=== PATIENT | female | born 1945 | race Caucasian/White ===

== ENCOUNTER 2016-06-04 17:28 | Emergency (ER) | payer MEDICARE, MEDICAID ==
[~2016-06-04] VITALS: Ht 157.5 cm; Wt 63.0 kg
[~2016-06-04 17:28] MED LIST: ALBU8.5H7 IH; AMLO5TAB2 PO; ARFO15VI IH; BECL8.7A6 IH; BUDE0.5A IH; CARB1TAB43 PO; CILO50TA9 PO; COLE625T12 PO; DULO60CA7 PO; FINA1TAB10 PO; FLUT1AER IH; FLUT250D IH; GABA300C PO; HYDR-2370 PO; INSU100I18 SQ; INSU100V13 SQ; IPRA3AMP IH; LORA1TAB PO; METF10002 PO; METO100T2 PO; MULT1TAB52 PO; PIOG30TA27 PO; PRAV40TA2 PO; PROM25TA10 PO; RAMI2.5C28 PO; SITA100T PO; SULF1TAB24 PO; TEMA30CA PO
[2016-06-04] MEDS ORDERED: DUONEB 0.5 MG-3 MG/3 ML SOLN IH STA (18:06)
[2016-06-04] MEDS ORDERED: SOLU-MEDROL IM STA (18:06)
--- NOTE | 2016-06-04 18:06 | ER.PDOC ---
General Chief Complaint: Dyspnea/Respdistress Stated Complaint: DIFF BREATHING Time seen by MD: 18:05 Source: patient History of Present Illness Initial Comments SOB and cough with yellowish phlegm for 3 days . Has h/o Asthma and COPD Severity: moderate Allergies: Coded Allergies: butorphanol (Verified Allergy, Severe, 08/30/15) morphine (Verified Allergy, Severe, 08/30/15) pentazocine (Verified Allergy, Severe, 08/30/15) codeine (Unverified Adverse Reaction, Intermediate, GI UPSET, 08/30/15) Home Meds Reported Medications Cilostazol (Pletal)50 Mg Bichjg07 Mg PO BID 12/02/14 Multivitamin (Multivitamins)1 Each Tablet1 Tab PO DAILY #90 TAB Ref 3 10/19/14 Ipratropium/Albuterol Sulfate (Iprat-Albut 0.5-3(2.5) Mg/3 Ml)3 Ml Ampul.neb3 Ml IH 10/19/14 Fluticasone/Vilanterol (Breo Ellipta 100-25 Mcg INH)1 Each Aer.pow.ba1 Each IH PRN SHORTNESS OF BREATH 10/19/14 Metformin Hcl 1,000 Mg Tablet1 Tab PO DAILY #60 TAB Ref 5 10/19/14 Arformoterol Tartrate (Brovana)15 Mcg/2 Ml Vial.neb15 Mcg IH 10/19/14 Finasteride 1 Mg Tablet1 Mg PO TID 10/19/14 Gabapentin (Neurontin)300 Mg Capsule1 Cap PO HS #90 CAP Ref 3 05/06/14 Insulin Detemir (Levemir)100 Unit/1 Ml Vial33.3 Unit SQ BID 05/04/14 Pioglitazone Hcl (Actos)30 Mg Mqxfbh37 Mg PO DAILY 05/04/14 Pravastatin Sodium 40 Mg Dsazmy07 Mg PO HS 05/04/14 Amlodipine Besylate 5 Mg Tablet5 Mg PO DAILY 05/04/14 Metoprolol Tartrate (Lopresser 100MG)100 Mg Wfinzu722 Mg PO DAILY HYPERTENSION # 60 TAB 05/04/14 Duloxetine Hcl (Cymbalta)60 Mg Capsule.dr60 Mg PO DAILY 05/04/14 Insulin Aspart (Novolog)100 Unit/1 Ml Insuln.pen15 Unit SQ TID 05/04/14 Ramipril 2.5MG (Altace 2.5MG)2.5 Mg Capsule2.5 Mg PO DAILY 05/04/14 Carbidopa/Levodopa (Carbidopa-Levo Er 25-100 Tab)1 Each Tablet.er1 Each PO QID 05/04/14 Colesevelam Hcl (Welchol)625 Mg Tablet3 Tab PO BID 05/04/14 Lorazepam 1 Mg Tablet1 Mg PO BID 05/04/14 Budesonide 0.5 Mg/2 Ml Ampul.neb0.5 Mg IH BID 05/04/14 Past Medical History Medical History: COPD, diabetes, hypertension Surgical History: appendectomy, hysterectomy, tonsillectomy LMP (females 10-50): hysterectomy Social History Smoking: less than 1 pack/day Alcohol Use: occasionally Drug Use: none Review of Systems Constitutional: see HPI EENTM: no symptoms reported Respiratory: see HPI Cardiovascular: no symptoms reported Gastrointestinal: no symptoms reported Genitourinary: no symptoms reported Musculoskeletal: no symptoms reported Skin: no symptoms reported Psychiatric/Neurological: no symptoms reported Endocrine: no symptoms reported Hematologic/Lymphatic: no symptoms reported Physical Exam General Appearance: Moderate Distress HEENT: PERRL/EOMI Neck: Non-Tender Respiratory: accessory muscle use, wheezing Cardiovascular: Normal Peripheral Pulses Extremities: Normal Range of Motion Neurologic/Psychiatric: No Motor/Sensory Deficits Skin: Normal Color Results/Orders Results/Orders Administered Medications Medications (Trade) Dose Ordered Sig/Romulo Route PRN Reason Start Time Stop Time Status Last Admin Dose Admin Albuterol/ Ipratropium (Duoneb 0.5 Mg-3 Mg/3 ml Soln) 3 ml STAT STAT IH 06/04/16 18:06 06/04/16 18:08 DC 06/04/16 18:29 Methylprednisolone Sodium Succinate (Solu-Medrol) 125 mg STAT STAT IM 06/04/16 18:06 06/04/16 18:08 DC 06/04/16 18:18 Departure Time of Disposition: 19:03 Disposition: 01 HOME, SELF-CARE Impression: Primary Impression: Chronic obstructive pulmonary disease Condition: Stable Referrals: ADONIS YIN HORTICULTURAL AGENT (PCP) PRIMARY CARE PROVIDER GABRIEL SEE MD Jun 04, 2016 18:06
[2016-06-04] MEDS ORDERED: SOLU-MEDROL ONE (18:16)
[2016-06-04] MEDS ORDERED: DUONEB 0.5 MG-3 MG/3 ML SOLN IH ONE (18:17)
--- NOTE | 2016-06-04 18:27 | DIREP ---
PROCEDURE:CHEST 1 VIEW COMPARISON:[facility], CR, XRAY CHEST 2 VWS, 07/13/2015, 01:32 PM. INDICATIONS:CODP / PNA FINDINGS: LUNGS/PLEURA:There is pulmonary hyperinflation consistent with underlying COPD. No focal consolidation. No effusions. VASCULATURE:Normal. Unremarkable pulmonary vasculature. CARDIAC:Normal. No cardiac silhouette abnormality or cardiomegaly. MEDIASTINUM:Atherosclerotic aorta with no visible aneurysm. BONES:Moderate degenerative disc disease and spondylosis without visible acute abnormalities. OTHER:Negative. CONCLUSION:No acute cardiopulmonary disease. No change. Dictated by: Jorge Mac M.D. on 06/04/2016 at 06:26 PM
[2016-06-04] MEDS ORDERED: LEVAQUIN ONE (19:06)
[2016-06-04] MEDS ORDERED: LEVAQUIN PO STA (19:06)
[2016-06-04 19:22] VITALS: BP 147/81
[2017-01-22] MEDS ORDERED: LORA1TAB PO (19:15)
[2017-01-22] MEDS ORDERED: CHOL500016 PO (19:15)
[2017-01-22] MEDS ORDERED: OFLO5DRO7 OT (19:15)
[2017-01-22] MEDS ORDERED: ACET500T73 PO (19:15)
[2017-01-22] MEDS ORDERED: B CO PO (19:15)
[2017-01-22] MEDS ORDERED: ZOLP10TA5 PO (19:15)
[2017-01-22] MEDS ORDERED: ISOS30TA4 PO (19:15)
[2017-01-22] MEDS ORDERED: TRAM50TA PO (19:15)
[2017-02-20] MEDS ORDERED: INSU100V13 SQ (00:15)
[2017-02-23] MEDS ORDERED: VARE1TAB20 PO (10:37)
[2017-02-23] MEDS ORDERED: TICA90TA PO (10:37)
[2017-03-15] MEDS ORDERED: CLOP75TA52 PO (15:05)
== END 2016-06-04 19:17 | disposition home or self-care (01) ==
LOC: ER 17:28
DX: J44.9 Chronic obstructive pulmonary disease, unspecified (principal); E11.9 Type 2 diabetes mellitus without complications; I10 Essential (primary) hypertension; F17.200 Nicotine dependence, unspecified, uncomplicated; Z79.4 Long term (current) use of insulin; Z79.899 Other long term (current) drug therapy; Z88.5 Allergy status to narcotic agent; Z88.8 Allergy status to other drugs, medicaments and biological substances
CPT/HCPCS: 71010; 94640; 96372; 99283; J1956; J2930; J7620; 71045

== ENCOUNTER 2017-04-13 13:54 | Inpatient (IN) | payer MEDICARE, MEDICAID ==
[~2017-04-13] VITALS: Ht 154.9 cm; Wt 76.2 kg
[~2017-04-13 13:54] MED LIST changes: +ACET500T73 PO; +B CO PO; +CHOL500016 PO; +CLOP75TA52 PO; +ISOS30TA4 PO; +OFLO5DRO7 OT; +TICA90TA PO; +TRAM50TA PO; +VARE1TAB20 PO; +ZOLP10TA5 PO
[2017-04-13] MEDS ORDERED: TORADOL IM STA (14:18)
--- NOTE | 2017-04-13 14:24 | ER.PDOC ---
General Chief Complaint: Neck/Upper back Pain Stated Complaint: LOW PRESSURE TRAVEL OUT OF US: No Time seen by MD: 14:20 Source: patient Exam Limitations: no limitations History of Present Illness Initial Comments Lightheaded and low blood pressure at home. Had EGD for blood in stool on which showed gastritis and polyp. She continues to have blood in stool. Currently takes Aspirin and Plavix. Severity: moderate Associated Symptoms: cough Allergies: Coded Allergies: butorphanol (Verified Allergy, Severe, 01/22/17) pentazocine (Verified Allergy, Severe, 01/22/17) codeine (Verified Adverse Reaction, Intermediate, GI UPSET, 03/15/17) Home Meds Active Scripts Varenicline Tartrate (CHANTIX) 1 Each Tab.ds.pk, 1 EACH PO BID for 30 Days, 0 Refills DIRECTED IN [employer]IENCE PACK. Prov:MARIAM CUNNINGHAM APRN, NP 02/23/17 Ticagrelor (BRILINTA) 90 Mg Tablet, 90 MG PO BID for PCI, #180 TABLET 4 Refills Prov:MARIAM CUNNINGHAM APRN, NP 02/23/17 Reported Medications Clopidogrel Bisulfate (PLAVIX) 75 Mg Tablet, 75 MG PO DAILY, TABLET 03/15/17 Insulin Detemir (LEVEMIR) 100 Unit/1 Ml Vial, 60 UNIT SQ HS, VIAL 02/20/17 Tramadol Hcl (TRAMADOL HCL) 50 Mg Tablet, 50 MG PO BID, TABLET 01/22/17 Lorazepam (LORAZEPAM) 1 Mg Tablet, 1 MG PO TID, TABLET 01/22/17 Isosorbide Mononitrate (ISOSORBIDE MONONITRATE ER) 30 Mg Tab.er.24h, 30 MG PO DAILY 01/22/17 Acetaminophen (ACETAMINOPHEN) 500 Mg Tablet, 500 MG PO HS, TABLET 01/22/17 Cholecalciferol (Vitamin D3) (VITAMIN D3) 5,000 Unit Tablet, 1 UNIT PO DAILY, TABLET 01/22/17 B Complex with Vitamin C (B-Complex with C) 1 Each Tablet, 1 EACH PO DAILY, TABLET 01/22/17 Zolpidem Tartrate (ZOLPIDEM TARTRATE) 10 Mg Tablet, 10 MG PO HS, TABLET 01/22/17 Ipratropium/Albuterol Sulfate (IPRAT-ALBUT 0.5-3(2.5) MG/3 ML) 3 Ml Ampul.neb, 3 ML IH 10/19/14 Fluticasone/Vilanterol (Breo Ellipta 100-25 Mcg INH) 1 Each Aer.pow.ba, 1 EACH IH Y for SHORTNESS OF BREATH 10/19/14 Arformoterol Tartrate (BROVANA) 15 Mcg/2 Ml Vial.neb, 15 MCG IH 10/19/14 Gabapentin (NEURONTIN) 300 Mg Capsule, 400 MG PO QID, #90 CAP 3 Refills 05/06/14 Insulin Detemir (LEVEMIR) 100 Unit/1 Ml Vial, 33.3 UNIT SQ BID, VIAL 05/04/14 Pravastatin Sodium (PRAVASTATIN SODIUM) 40 Mg Tablet, 40 MG PO HS, TABLET 05/04/14 Metoprolol Tartrate (LOPRESSER 100MG) 100 Mg Tablet, 100 MG PO DAILY for HYPERTENSION, #60 TAB 05/04/14 Duloxetine Hcl (CYMBALTA) 60 Mg Capsule.dr, 60 MG PO DAILY 05/04/14 Insulin Aspart (NOVOLOG) 100 Unit/1 Ml Insuln.pen, 15 UNIT SQ TID 05/04/14 Ramipril 2.5MG (ALTACE 2.5MG) 2.5 Mg Capsule, 2.5 MG PO DAILY, CAPSULE 05/04/14 Carbidopa/Levodopa (CARBIDOPA-LEVO ER 25-100 TAB) 1 Each Tablet.er, 1 EACH PO QID 05/04/14 Lorazepam (LORAZEPAM) 1 Mg Tablet, 1 MG PO BID, TABLET 05/04/14 Budesonide (BUDESONIDE) 0.5 Mg/2 Ml Ampul.neb, 0.5 MG IH BID 05/04/14 Past Medical History Medical History: diabetes, hypertension Surgical History: appendectomy, hysterectomy, knee, tonsillectomy, other Social History Smoking: less than 1 pack/day Alcohol Use: none Drug Use: none Review of Systems Constitutional: no symptoms reported Respiratory: see HPI Cardiovascular: no symptoms reported Gastrointestinal: no symptoms reported Genitourinary: no symptoms reported All Other Systems: Reviewed and Negative Physical Exam General Appearance: No Apparent Distress, WD/WN, Other (palor) Neck: Full Range of Motion, Supple, Tender Midline Respiratory: chest non-tender, lungs clear, normal breath sounds, no respiratory distress CVS: reg rate & rhythm, no murmur, no gallop, pulses nml, nml capillary refill Gastrointestinal: Normal Bowel Sounds, No Organomegaly, No Pulsatile Mass, Non Tender Back: Normal Inspection Extremities: Normal Range of Motion Neurologic/Psychiatric: pocket operator II-XII NML as Tested Results/Orders Results/Orders Laboratory Tests Test 04/13/17 14:30 White Blood Count 7.3 10^3/uL (4.5-11.0) Red Blood Count 2.99 10^6/uL (4.00-5.20) Hemoglobin 8.8 g/dL (12.0-15.0) Hematocrit 27.2 % (36.0-46.0) Mean Corpuscular Volume 91.0 fL (78-100) Mean Corpuscular Hemoglobin 29.4 pg (26-34) Mean Corpuscular Hemoglobin Concent 32.4 g/dL (33-37) Red Cell Distribution Width 12.8 % (11.5-14.5) Platelet Count 181 10^3/uL (150-400) Mean Platelet Volume 10.5 fL (7.8-11.0) Neutrophils (%) (Auto) 48.7 % (41.0-85.0) Lymphocytes (%) (Auto) 37.3 % (24.0-44.0) Monocytes (%) (Auto) 11.9 % (5.0-12.0) Neutrophils # (Auto) 3.6 10^3/uL (1.8-7.7) Lymphocytes # (Auto) 2.7 10^3/uL (1.0-4.8) Monocytes # (Auto) 0.9 10^3/uL (0.3-0.8) Absolute Immature Granulocyte (auto 0.01 10^3 u/L (0-2) Eosinophils % 1.6 % (0.0-5.0) Basophils % 0.4 % (0.0-0.2) Basophils # 0.0 10^3/uL (0.0-0.1) Eosinophil Count 0.1 10^3/uL (0.0-0.2) Prothrombin Time 10.7 SEC (9.8-11.9) Prothrombin Time INR (Non-Therap) 1.0 Sodium Level 133 mmol/L (132-145) Potassium Level 4.6 mmol/L (3.6-5.2) Chloride Level 98.0 mmol/L (96-109) Carbon Dioxide Level 26.8 mmol/L (20.0-32) Anion Gap 12.8 Blood Urea Nitrogen 19 mg/dL (7-18) Creatinine 1.13 mg/dL (0.59-1.40) Estimated GFR () 57.1 (>/=60) BUN/Creatinine Ratio 16.0 Glucose Level 293 mg/dL (70-110) Calcium Level 8.6 mg/dL (8.4-10.5) Total Bilirubin 0.3 mg/dL (0.2-1.0) Aspartate Amino Transf (AST/SGOT) 27 U/L (0-35) Alanine Aminotransferase (ALT/SGPT) 30 U/L (12-78) Alkaline Phosphatase 83 U/L (50-136) Total Creatine Kinase 50 U/L (26-192) Creatine Kinase MB < 0.5 ng/mL (0.5-3.6) Troponin I < 0.02 ng/mL (0.00-0.05) Total Protein 6.4 g/dL (6.4-8.2) Albumin 3.0 g/dL (3.4-5.0) Globulin 3.4 Percent Immature Gran (Cell Imm) 0.10 % (0.00-0.50) Administered Medications Medications (Trade) Dose Ordered Sig/Romulo Route PRN Reason Start Time Stop Time Status Last Admin Dose Admin Ketorolac Tromethamine (Toradol) 30 mg STAT STAT IM 04/13/17 14:18 04/13/17 14:20 DC 04/13/17 15:14 Departure Time of Disposition: 18:07 Disposition: 09 ADMITTED INPATIENT Impression: Primary Impression: GI bleed Qualified Codes: K92.2 - Gastrointestinal hemorrhage, unspecified Additional Impression: Anemia Qualified Codes: D64.9 - Anemia, unspecified Condition: Stable Referrals: JAVIER GRIFFITH MD (PCP) PRIMARY CARE PROVIDER Comments Admitted to Dr. Teodoro BURTON,GAYE Vides MD Apr 13, 2017 14:24
--- NOTE | 2017-04-13 14:27 | PCM.EKG ---
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
[2017-04-13 14:36] LABS: BASOPHIL % 0.4 % (0.0-0.2); EOSINOPHIL # 0.1 10^3/uL (0.0-0.2); EOSINOPHIL % 1.6 % (0.0-5.0); HEMOGLOBIN 8.8 g/dL (12.0-15.0); LYMPHOCYTES # 2.7 10^3/uL (1.0-4.8); LYMPHOCYTES % 37.3 % (24.0-44.0); MEAN CELL HGB 29.4 pg (26-34); MEAN CELL HGB CONCENTRATION 32.4 g/dL (33-37); MEAN PLATELET VOLUME 10.5 fL (7.8-11.0); MONOCYTES # 0.9 10^3/uL (0.3-0.8); MONOCYTES % 11.9 % (5.0-12.0); NEUTROPHIL # 3.6 10^3/uL (1.8-7.7); NEUTROPHILS % 48.7 % (41.0-85.0); RED CELL DISTRIBUTION WIDTH 12.8 % (11.5-14.5); WHITE BLOOD CELL 7.3 10^3/uL (4.5-11.0)
[2017-04-13] MEDS ORDERED: TORADOL ONE (14:44)
--- NOTE | 2017-04-13 14:59 | DIREP ---
PROCEDURE:CT HEAD OR BRAIN W/O CONTRAST COMPARISON:[facility], CT, CT HEAD BRAIN W/O CONTRAST, 12/09/2014, 04:08 PM. INDICATIONS:Syncope TECHNIQUE:CT images were created without intravenous contrast. FINDINGS: VENTRICLES:There is generalized prominence of the ventricles, sulci, and cisterns. CEREBRUM:There is ill-defined low density in the white matter of both cerebral hemispheres. There is no CT evidence of mass, hemorrhage, or acute infarct. CEREBELLUM:Negative. BRAINSTEM:Negative. BASAL CISTERNS:Negative. SKULL:Negative. SINUSES:Negative. OTHER:None. CONCLUSION: 1. Generalized atrophy. 2. Chronic white matter ischemic change. 3. There is no CT evidence of intracranial mass, hemorrhage, or acute infarct. 4. There is no significant change as compared with the previous examination. Dictated by: Merritt Hernandez M.D. on 04/13/2017 at 02:57 PM
[2017-04-13 15:04] LABS: ALANINE AMINOTRANSFERASE 30 U/L (12-78); ALKALINE PHOSPHATASE 83 U/L (50-136); ASPARTATE AMINO TRANSFERASE 27 U/L (0-35); CALCIUM 8.6 mg/dL (8.4-10.5); CARBON DIOXIDE 26.8 mmol/L (20.0-32); GLUCOSE 293 mg/dL (70-110)
--- NOTE | 2017-04-13 15:06 | DIREP ---
PROCEDURE: CT SPINE CERVICAL W/0 COMPARISON:None. INDICATIONS:pain FINDINGS: CRANIOCERVICAL AREA: There are degenerative changes at the C1-C2 interface. VERTEBRAE: There is no fracture or compression deformity. Degenerative changes. Anterior marginal osteophytes. DISK SPACES: There are varying degrees of disk space narrowing. PARASPINAL TISSUES: No obvious soft tissue swelling or mass. SPONDYLOLISTHESIS: None. OTHER: There is facet arthropathy. Carotid bulb and bifurcation atherosclerosis, right slightly worse than left. CONCLUSION: 1. Loss of cervical lordosis. Can be caused by injury and/or trauma, stress and strain to the neck. 2. There is no visible fracture. 3. There is no subluxation. 4. Mild diskovertebral degenerative changes with facet arthropathy. 5. Carotid bulb and bifurcation atherosclerosis, right slightly worse than left. Dictated by: Merritt Hernandez M.D. On 04/13/2017 at 02:58 PM
--- NOTE | 2017-04-13 15:47 | NUR ---
Courtney West Mba has tried 2 attempts with message with Dr. Valdez with no answer.
--- NOTE | 2017-04-13 15:50 | NUR ---
Courtney West Mba left message with Dr. Valdez
--- NOTE | 2017-04-13 16:07 | NUR ---
VAMSI CORRIGAN MBA ON PHONE WITH DR AGUSTIN AT THIS TIME REGARDING PT.
--- NOTE | 2017-04-13 16:10 | NUR ---
DR ELMER VALLEA ON PHONE WITH DR PAYNE AT THIS TIME REGARDING PT.
[2017-04-13] MEDS ORDERED: ZOFRAN IV PRN (17:30)
[2017-04-13] MEDS ORDERED: GLUCAGEN IV PRN (17:30)
[2017-04-13] MEDS ORDERED: DUONEB 0.5 MG-3 MG/3 ML SOLN IH PRN (18:00)
[2017-04-13] MEDS ORDERED: PROTONIX IV IV STA (18:09)
--- NOTE | 2017-04-13 18:09 | PRM.ACF1 ---
Date and Time Date and Time Time: 18:09 Admission Criteria Forms GASTROINTESTINAL BLEEDING, HEMATEMESIS OR MELENA (Place "X" for any and all applicable criteria): Admission to inpatient status is indicated for evidence of significant gastrointestinal bleeding, including ANY ONE of the following(1)(2)(3)(4)(5) : []I. Hematemesis in younger than 1 year A [x]II. Active upper or lower gastrointestinal bleeding []III. Coagulopathy []IV. Suspected variceal cause of bl. as indicated by ANY ONE of the following(5) : []a) Ascites []b) Comorbid disorder indicating risk for portal v. thrombosis eg, abdominal surgery , sepsis, shock, exchange. transfusion,umbilical vein catheterization []c) History of liver dis. []d) Physical findings of portal HTN eg,caput medusa []e) Jaundice or scleral icterus []f) Hepatomegaly or splenomegaly []V. Inpatient admission required rather than observation care (Also use GI Bleeding, Hematemesis or Melena: Observation Care guideline as appropriate) because of ANY ONE of the following: []a) Significant finding or clinical condition judged too severe (eg, treatment intensity or expected duration requires inpatient admission) or too persistent (eg, insufficient improvement or worsening despite initial intervention or treatment for up to 24 hours) to be within the scope of observation care, including ANY ONE of the following: []i. Hemodynamic instability that is severe or persistent []ii. Anemia requiring inpatient admission. []1. Presence of sig. clinical finding indicated by ANY ONE of the following: []A. Tachycardia for age []B. Cognitive impairment []C. Other findings suggesting inadequate perfusion []D. Orthostatic vital sign changes []E. Heart failure []F. Exertional dyspnea []G. Chest pain []2. Initial (eg,emergency department., observation care) treatment with transfusion or volume replace. is judged inappropriate (due to severity of the finding) or has been ineffective []iii. Other sig.finding or clinical condition judged not to be within the scope of observation care []iv. Severe pain requiring acute inpatient management. []v. High-risk low platelet count []b) Treatment or monitoring requiring inpatient admission (eg, due to intensity or expected duration) as indicated by need for ANY ONE of the following(6)(7) : []i. Continued inpatient IV hydration due to failure of rehydration treatment(eg, for > 24 hrs) and expected improve. with further inpatient evaluation and treatment []ii. Continuous IV infusion of:anticoagulation, platelet inhibitors, vasoactive, or antiarrhythmic medications []iii. Parenteral nutrition regimen that must be implemented on inpatient basis []iv. Other treatment or monitoring requiring inpatient admission []v. Immediate inpatient surgery Extended stay beyond goal length of stay may be needed for(1)(4)(14) : []a) Continued significant ongoing blood loss []b) Coagulation abnormalities(17) []c) Associated anemia requiring transfusion []d) Surg. intervention(12) []e) Variceal bleeding.(7) The original frooly content created by [employer] has been revised. The portions of the content which have been revised are identified through the use of italic text, and [employer] has neither reviewed nor approved the modified material. All other unmodified content is copyright [email or web address]. Please see references footnote in the original [email or web address] edition 2015 . GAYE BURTON MD Apr 13, 2017 18:09
--- NOTE | 2017-04-13 18:17 | NUR ---
CAROLINE SHEN RN STATES TO WAIT UNTIL SHIFT CHANGE BEFORE BRINGING PT UP.
[2017-04-13] MEDS ORDERED: PROTONIX IV IV ONE (18:19)
[2017-04-13] MEDS: DILAUDID IV PRN (19:28)
[2017-04-13] MEDS: PULMICORT IH SCH (20:00)
[2017-04-13 20:27] LABS: HEMOGLOBIN 9.4 g/dL (12.0-15.0)
[2017-04-13 20:29] VITALS: BP 161/88
[2017-04-13] MEDS ORDERED: NEURONTIN ONE (20:35)
[2017-04-13] MEDS ORDERED: SINEMET 25/100 ONE (20:35)
[2017-04-13] MEDS ORDERED: PEPCID ONE (20:35)
[2017-04-13 20:40] VITALS: BP 161/88
[2017-04-13] MEDS: LEVEMIR SQ SCH (20:40)
[2017-04-13] MEDS: ATIVAN PO SCH (20:40)
[2017-04-13] MEDS: SINEMET PO SCH (20:40)
[2017-04-13] MEDS: PEPCID IV SCH (20:41)
[2017-04-13] MEDS: TYLENOL PO SCH (20:41)
[2017-04-13] MEDS ORDERED: BRILINTA PO SCH (21:00)
[2017-04-13] MEDS: ZOCOR PO SCH (21:00)
[2017-04-13] MEDS: NEURONTIN PO SCH (21:00)
[2017-04-13 23:00] VITALS: BP 159/68
[2017-04-14] MEDS: DILAUDID IV PRN ×4 (00:54→18:06)
[2017-04-14] MEDS: DUONEB 0.5 MG-3 MG/3 ML SOLN IH PRN ×5 (02:06→20:24)
[2017-04-14 04:45] VITALS: BP 125/59
[2017-04-14 05:45] LABS: BASOPHIL % 0.1 % (0.0-0.2); EOSINOPHIL # 0.2 10^3/uL (0.0-0.2); EOSINOPHIL % 2.7 % (0.0-5.0); LYMPHOCYTES # 3.4 10^3/uL (1.0-4.8); LYMPHOCYTES % 47.4 % (24.0-44.0); MEAN CELL HGB 29.6 pg (26-34); MEAN CELL HGB CONCENTRATION 32.3 g/dL (33-37); MEAN CORP VOLUME 91.8 fL (78-100); MEAN PLATELET VOLUME 10.5 fL (7.8-11.0); MONOCYTES # 0.6 10^3/uL (0.3-0.8); MONOCYTES % 8.2 % (5.0-12.0); NEUTROPHIL # 2.9 10^3/uL (1.8-7.7); NEUTROPHILS % 41.5 % (41.0-85.0); RED CELL DISTRIBUTION WIDTH 13.1 % (11.5-14.5); WHITE BLOOD CELL 7.1 10^3/uL (4.5-11.0)
[2017-04-14 05:56] LABS: CALCIUM 8.4 mg/dL (8.4-10.5)
--- NOTE | 2017-04-14 06:30 | NUR ---
Report Received report and assumed care of pt
[2017-04-14 07:52] VITALS: BP 157/58
[2017-04-14] MEDS ORDERED: SINEMET 25/100 ONE ×2 (08:27→15:27)
[2017-04-14] MEDS: CYMBALTA PO SCH (08:36)
[2017-04-14] MEDS: NEURONTIN PO SCH ×4 (08:36→20:14)
[2017-04-14] MEDS: PEPCID IV SCH ×2 (08:36→20:14)
[2017-04-14] MEDS: ATIVAN PO SCH ×2 (08:36→20:14)
[2017-04-14] MEDS: PLAVIX PO SCH (08:37)
[2017-04-14] MEDS: ALTACE PO SCH (08:37)
[2017-04-14] MEDS: IMDUR PO SCH (08:37)
[2017-04-14] MEDS: SINEMET PO SCH ×4 (08:38→20:15)
[2017-04-14] MEDS: LEVEMIR SQ SCH ×2 (08:45→20:48)
[2017-04-14] MEDS: PULMICORT IH SCH ×2 (08:49→20:24)
--- NOTE | 2017-04-14 10:44 | HPH ---
ADMIT DATE: 04/13/2017 The patient was seen in the Emergency Room. CHIEF COMPLAINT: Low blood pressure, lightheadedness. HISTORY OF PRESENT ILLNESS: This patient is a 71-year-old woman with a past medical history significant for coronary artery disease, COPD, diabetes mellitus type 2, Parkinson's disease, peripheral vascular disease, congestive heart failure, diastolic dysfunction, chronic pain and anxiety disorder. She presented to ER with complaints of low blood pressure and some lightheadedness. She did note the low blood pressure at home. She did have an EGD for blood in her stool on 03/20/2017, it showed some gastritis. She still think she has some blood in her stool. She currently takes aspirin and Plavix. She had a recent heart catheterization with stent placement. She does continue to smoke cigarettes. She is not on home oxygen. She has a relatively decent functional status. She takes a long list of medication, she has insulin-dependent diabetes with only moderate control. PAST MEDICAL HISTORY: Includes diabetes mellitus type 2, hypertension, coronary artery disease, COPD, tobacco abuse, chronic pain, anxiety disorder, hyperlipidemia, peripheral vascular disease. PAST SURGICAL HISTORY: She has had appendectomy, hysterectomy, knee surgery, tonsillectomy, PTCA with stent placement. ALLERGIES: ALLERGIC TO BUTORPHANOL, CODEINE, PENTAZOCINE. HOME MEDICATIONS: List is extensive and includes: Tylenol as needed, Brovana 15 mcg inhaled daily, vitamin B with vitamin C, budesonide 0.5 mg inhaled b.i.d., Sinemet one tablet 4 times a day of 25/100 mg tablets, vitamin D3 daily, Plavix 75 mg daily, Cymbalta 60 mg daily, Breo Ellipta 100/25 mcg inhaled as needed, gabapentin 400 mg 4 times a day. She is on sliding scale insulin, she takes 15 units subcutaneous 3 times a day. She takes Levemir 33.3 units b.i.d. and also 60 units at night, DuoNebs as needed, Imdur 30 mg daily, lorazepam 1 mg twice a day, metoprolol tartrate written as 100 mg daily, it is probably succinate formulation, pravastatin 40 mg at night, ramipril 2.5 mg daily, Brilinta 90 mg twice a day, tramadol 50 mg b.i.d., Ambien 10 mg at night. SOCIAL HISTORY: She does live at home. She still continues to smoke. No illicit drug use or alcohol use reported. FAMILY HISTORY: Negative for early coronary artery disease or diabetes. REVIEW OF SYSTEMS: CARDIAC: She denies chest pain. She does have some shortness of breath and dyspnea on exertion. PULMONARY: She denies any cough, sputum production or pleuritic chest pain. GASTROINTESTINAL: No nausea, vomiting, diarrhea or constipation. All else negative in 10 point review of system except as in HPI. PHYSICAL EXAMINATION: VITAL SIGNS: Upon arrival to the ER, height 154.9 cm, weight 74.8 kilograms. Temperature 98.9, pulse 72, respiratory rate 17, blood pressure 108/54, O2 saturation 97% on room air. GENERAL: She is alert, chronic ill-appearing lady. HEENT: Pupils equal, round, reactive to light. Sclerae is anicteric. Oropharynx is clear. Mucous membranes are slightly dry. NECK: Supple, no lymphadenopathy. CARDIOVASCULAR: At time of exam is regular rate and rhythm. LUNGS: Clear bilaterally. No wheezing. ABDOMEN: Soft. Bowel sounds are present, nontender to palpation. EXTREMITIES: No cyanosis, clubbing or significant edema. NEUROLOGIC: Grossly nonfocal. LABORATORY DATA: CBC: White count 7.3, hemoglobin 8.8, platelets 181,000. Differential: 49% neutrophils, 37% lymphocytes, 12% monocytes. Sodium 133, potassium 4.6, chloride 98, CO2 is 27, BUN 19, creatinine 1.1, glucose 293, calcium is 8.6, total bilirubin 0.3, AST 27, ALT is 30, alkaline phosphatase 83, total CK is 50, CK-MB is less than 0.5, troponin I is less than 0.02, total protein 6.4, albumin 3.0. IMAGING STUDIES: CT head performed in the Emergency Room revealed this generalized atrophy with chronic ischemic changes. CT cervical spine, this shows the degenerative disk changes with significant atherosclerosis of carotid. ASSESSMENT AND PLAN: This patient is a 71-year-old woman here with numerous medical problems here with anemia due to both chronic disease and probably some mild blood loss with insulin-dependent diabetes mellitus type 2, clinical dehydration, COPD, coronary artery disease, history of gastritis, tobacco abuse. 1. We will continue current cardiovascular medications, but will hold aspirin due to the evidence of possible mild GI bleed. 2. Continue her diabetic medications, but will be careful with higher doses of Levemir due to the attempt to avoid hypoglycemic episodes, we will place on ADA diet. 3. Appropriate p.r.n. pain and nausea medications. 4. Continue Ativan. She is a benzodiazepine dependent patient. 5. Appropriate p.r.n. pain and nausea medications. 6. O2 protocol. 7. We will follow the hemoglobin for signs of further bleeding. We will check a stool for occult blood. 8. She has a history of gastritis. We will continue PPI therapy. She was H. pylori negative. Time spent with the patient on 04/13/2017 in the Emergency Room is 45 minutes. This plan was discussed with the patient. She is her own decision maker. She does understand and concur with plans. Terrence Valerio MD DR: KRISTEL/winnie JOB# [id number] ARELY
[2017-04-14] MEDS ORDERED: CEPACOL SORE THROAT LOZENGE MM ONE (11:53)
[2017-04-14 12:48] VITALS: BP 157/73
--- NOTE | 2017-04-14 14:51 | NUR ---
PT FAMILY STATED THAT SHE TOOK HER OWN MED. HOSPITAL BREATHING TX NOT GIVEN DUE TO CONTRAINDICATION BY TAKING OWN MED. PT INSTRUCTED TO NOT TAKE OWN MED AND TO CALL RESPIRATORY FOR PRN BREATHING TX'S
[2017-04-14] MEDS: TYLENOL PO PRN (15:33)
--- NOTE | 2017-04-14 17:30 | NUR ---
Urine Pt states having increase difficulty urinating. Pt observed to have hesitancy, burning, and increased frequency with urination. Urine sample collected. Dr. Valerio notified of pt condition. New orders received.
[2017-04-14 17:36] LABS: BILIRUBIN,URINE NEGATIVE (NEGATIVE); UROBILINOGEN,URINE NORMAL (NEGATIVE)
[2017-04-14 17:49] LABS: APPEARANCE,URINE CLEAR (CLEAR); UA COLOR YELLOW (YELLOW); WBC,URINE 0-2 WBC/HPF (0-2)
[2017-04-14] MEDS: NS 1000ML 1,000 ML IV SCH (18:00)
--- NOTE | 2017-04-14 18:00 | NUR ---
Kramer 16 fr Kramer inserted using strict sterile technique. 800 ml of clear yellow foul smelling urine drained from pt. Secured kramer tubing to left leg. Educated pt on care of catheter. Pt able to verbalize understanding.
--- NOTE | 2017-04-14 18:10 | NUR ---
Pain Pt states having pain. When pt questioned to point to pain, pt points to left flank. Pt states pain radiates to back of neck. Dr. Valerio notified of pain and low grade fever. New orders received. PRN pain medication given to pt.
--- NOTE | 2017-04-14 18:25 | NUR ---
Re-assessment of pain Pt states some relief from pain post pain medication. Educated pt on non pharmacological techniques to reduce pain. Pt able to return demonstrate and verbalize understanding. Call light within reach. Will continue to monitor pt.
--- NOTE | 2017-04-14 18:30 | NUR ---
Report Bedside report given to Leann Canales LVN. Care of pt relinquished.
[2017-04-14 19:48] VITALS: BP 163/71
[2017-04-14] MEDS ORDERED: ROCEPHIN ONE (19:56)
[2017-04-14] MEDS ORDERED: NS 100ML 100 ML IV ONE (19:56)
[2017-04-14] MEDS ORDERED: ROCEPHIN 1,000 MG in NS 100ML 100 ML IV SCH (20:00)
[2017-04-14] MEDS ORDERED: SINEMET CR 50/200 PO ONE (20:07)
--- NOTE | 2017-04-14 20:10 | NUR ---
DR. PAYNE NOTIFIED OF BLOOD SUGAR 420. STAT LAB ORDERED.
[2017-04-14] MEDS: TYLENOL PO SCH (20:14)
[2017-04-14] MEDS: ZOCOR PO SCH (20:14)
--- NOTE | 2017-04-14 20:46 | NUR ---
Received call from LAB with an Alert value of Glucose @ 411. Will notify nurse
[2017-04-14] MEDS: NOVOLOG SQ PRN (20:50)
[2017-04-15 00:20] VITALS: BP 130/50
[2017-04-15] MEDS: NS 1000ML 1,000 ML IV SCH ×4 (03:41→23:49)
[2017-04-15] MEDS: DILAUDID IV PRN ×3 (03:53→22:55)
[2017-04-15] MEDS: ULTRAM PO PRN ×2 (03:53→17:41)
[2017-04-15 04:13] VITALS: BP 158/64
--- NOTE | 2017-04-15 06:56 | NUR ---
REPORT GIVEN TO MINH CHRISTIANSON.
[2017-04-15] MEDS ORDERED: SINEMET CR 50/200 PO ONE ×3 (07:38→17:13)
[2017-04-15] MEDS ORDERED: HUMALOG ONE (07:39)
[2017-04-15] MEDS: ALTACE PO SCH (07:46)
[2017-04-15] MEDS: SINEMET PO SCH ×4 (07:46→21:13)
[2017-04-15] MEDS: PLAVIX PO SCH (07:47)
[2017-04-15] MEDS: PEPCID IV SCH ×2 (07:47→21:13)
[2017-04-15] MEDS: NEURONTIN PO SCH ×4 (07:47→21:04)
[2017-04-15] MEDS: CYMBALTA PO SCH (07:47)
[2017-04-15] MEDS: ATIVAN PO SCH ×2 (07:47→21:04)
[2017-04-15] MEDS: IMDUR PO SCH (07:47)
[2017-04-15] MEDS: NOVOLOG SQ PRN ×3 (07:49→22:43)
[2017-04-15] MEDS: LEVEMIR SQ SCH ×2 (07:49→22:40)
[2017-04-15 07:55] VITALS: BP 161/67
--- NOTE | 2017-04-15 08:26 | NUR ---
DR. ELMER PAYNE HERE TO SEE PT AT THIS TIME
[2017-04-15] MEDS: DUONEB 0.5 MG-3 MG/3 ML SOLN IH PRN ×2 (08:36→21:26)
[2017-04-15] MEDS: PULMICORT IH SCH ×2 (08:36→21:26)
[2017-04-15] MEDS: TYLENOL PO PRN (10:40)
--- NOTE | 2017-04-15 10:42 | NUR ---
PER ORDER OF CHARGE NURSE VANDANA FLAHERTY ADMINISTERED PT 1000 MG TYLENOL FOR NECK PAIN AHD HEADACHE AT THE RAT3E OF 8 IN 0- 10 RATING SCALE.
--- NOTE | 2017-04-15 11:19 | PNH ---
DATE: 04/14/2017 SUBJECTIVE: She still complains of chronic back pain. It is very low in the back, midline, around the sacral area. She has a history of chronic pain. She also has some difficulty urinating, but is on IV Dilaudid for her pain. No other acute changes overnight. OBJECTIVE: VITAL SIGNS: T-max the last 24 hours is 98.5 degrees Fahrenheit, pulse 83, respiratory rate 18, blood pressure 157/73 mmHg. O2 saturations were initially 89% on room air and did improve to 92% on 2 liters. GENERAL: She is alert, in no acute distress at the time of exam, a chronically ill-appearing lady. HEENT: Pupils equal, round, and reactive to light. Sclerae anicteric. Oropharynx clear. Mucous membranes moist. NECK: Supple, no lymphadenopathy. CARDIOVASCULAR: At the time of exam was slightly tachycardic, regular rhythm. LUNGS: She has decreased aeration at the bases. No wheezing. Relatively shallow inspiratory effort. ABDOMEN: Soft. Bowel sounds are present. Nontender to palpation. EXTREMITIES: No cyanosis, clubbing, or significant edema. NEUROLOGIC: Grossly nonfocal. LABORATORY DATA: CBC: White count 7.1, hemoglobin 9.0, platelets 172. DIFFERENTIAL: 41% neutrophils, 47% lymphocytes, 8% monocytes. BMP: Sodium 135, potassium 4.3, chloride 100, CO2 28, BUN 25, creatinine 1.22, glucose 287, calcium 8.4. She had an UA done, pH 5.0 specific gravity 1.020, 50 mg/dL protein, no RBCs, 0 to 2 WBCs, few squamous epithelial cells, no bacteria. ASSESSMENT AND PLAN: The patient is a 71-year-old woman here with acute on chronic back pain, with chronic pain syndrome, here also with anemia due to both chronic disease and probably some mild blood loss, uncontrolled diabetes mellitus type 2, chronic obstructive pulmonary disease, history of gastritis, and tobacco abuse. 1. Continue on her current cardiovascular medications. 2. Follow hemoglobin, it seems to be relatively stable, no signs of significant active bleeding. She does not need transfusion at this time. 3. O2 protocol, incentive spirometer. We will give nebulizer treatments scheduled and as needed. She has what appears to be a mild COPD exacerbation. 4. She has chronic pain with low back pain. There is no evidence of pyelonephritis or an urinary tract infection. 5. She does have urinary retention, but it is likely due to the side effects of the IV opiates. We will try to titrate off of the pain medicines as tolerated. 6. DVT prophylaxis with SCDs. Encourage ambulation. Time spent with the patient on April 14, 2017: 25 minutes Terrence Valerio MD DR: KRISTEL/winnie JOB# [id number]
[2017-04-15] MEDS ORDERED: SINEMET 25/100 ONE ×2 (12:11→20:56)
[2017-04-15 15:27] VITALS: BP 125/51
--- NOTE | 2017-04-15 18:52 | NUR ---
pt given Dilaudid 0.5 mg iv for pain rated at 8 in neck and back.
[2017-04-15 19:14] LABS: HEMOGLOBIN 8.1 g/dL (12.0-15.0); MEAN CELL HGB 29.6 pg (26-34); MEAN CORP VOLUME 92.3 fL (78-100); MEAN PLATELET VOLUME 9.7 fL (7.8-11.0); WHITE BLOOD CELL 12.6 10^3/uL (4.5-11.0)
[2017-04-15 19:23] LABS: CALCIUM 8.2 mg/dL (8.4-10.5); CARBON DIOXIDE 27.4 mmol/L (20.0-32)
[2017-04-15] MEDS ORDERED: DEXTROSE 5% IV SCH (20:00)
[2017-04-15] MEDS ORDERED: ROCEPHIN IV SCH (20:00)
[2017-04-15] MEDS ORDERED: WATER IV SCH (20:00)
[2017-04-15 20:44] VITALS: BP 162/78
[2017-04-15] MEDS: TYLENOL PO SCH (21:04)
[2017-04-15] MEDS: ZOCOR PO SCH (21:04)
[2017-04-16 02:10] VITALS: BP 129/67
[2017-04-16] MEDS: DILAUDID IV PRN (06:29)
[2017-04-16] MEDS: LEVEMIR SQ SCH ×2 (07:45→21:44)
[2017-04-16] MEDS: PEPCID IV SCH (07:55)
[2017-04-16] MEDS: ATIVAN PO SCH ×2 (07:56→21:46)
[2017-04-16] MEDS: ALTACE PO SCH (07:56)
[2017-04-16] MEDS: IMDUR PO SCH (07:56)
[2017-04-16] MEDS: NEURONTIN PO SCH ×4 (07:56→21:45)
[2017-04-16] MEDS: PLAVIX PO SCH (07:56)
[2017-04-16] MEDS: NS 1000ML 1,000 ML IV SCH (07:59)
[2017-04-16 09:02] VITALS: BP 156/78
[2017-04-16] MEDS: PULMICORT IH SCH ×2 (09:20→21:35)
[2017-04-16] MEDS: DUONEB 0.5 MG-3 MG/3 ML SOLN IH PRN ×3 (09:20→21:35)
[2017-04-16] MEDS: CYMBALTA PO SCH (09:27)
[2017-04-16] MEDS ORDERED: SINEMET 25/100 ONE (09:35)
--- NOTE | 2017-04-16 10:15 | NUR ---
DISCHARGE PLAN CM VISITED WITH PATIENT AND DAUGHTER CONCERNING PATIENTS DISCHARGE PLAN AND NEED. PATIENT STATED SHE IS CURRENTLY LIVING @ HOME WITH HER DAUGHTER WHOM IS HER PROVIDER. SHE HAS A WALKER, CANE, AND SHOWER CHAIR IN PLACE @ HOME SHE USES NEEDED. PATIENT CURRENTLY HAS HOME O2 IN PLACE AND [facility] AND STATED SHE IS HAPPY WITH THEIR SERVICES. CM NOTIFIED [facility] AND SPOKE TO NELLIE DENG RN REGARDING PATIENTS HOSPITAL ADMISSION, DISCHARGE FOR TODAY AND HANDED OFF REPORT. 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 NELLIE ALSO STATED [facility] WILL FOLLOW UP WITH PATIENT TOMORROW 04/17/17 AND CONTINUE TO FOLLOW FOR ANY FURTHER DISCHARGE NEEDS. CM THEN ADDRESSED PATIENT SAFETY HANDOUT, NO QUESTIONS ASKED AND VOICED UNDERSTANDING. PATIENT AND DAUGHTER DENY FURTHER NEEDS @ THIS TIME WITH CONTACT INFORMATION PROVIDED. CURRENT GOAL FOR PATIENT IS TO RETURN BACK HOME WITH DAUGHTER TO ROUTINE CARE UPON DISCHARGE WITH CURRENT PROVIDERS IN PLACE. NO FURTHER CM OR DISCHARGE NEEDS KNOWN @ THIS TIME.
[2017-04-16] MEDS: NOVOLOG SQ PRN ×3 (11:01→17:01)
[2017-04-16 11:30] VITALS: BP 139/57
--- NOTE | 2017-04-16 12:00 | NUR ---
REPORT RECEIVED REPORT FROM NICHOLE CHRISTIANSON AND [facility]
[2017-04-16] MEDS: SINEMET 25/100 PO SCH ×3 (13:57→21:45)
[2017-04-16] MEDS: ULTRAM PO PRN (14:03)
--- NOTE | 2017-04-16 14:03 | NUR ---
PAIN MEDS ULTRAM 50MG GIVEN PO FOR CHRONIC NECK AND BACK PAIN.
[2017-04-16] MEDS ORDERED: DOXY100C2 PO (14:43)
--- NOTE | 2017-04-16 14:49 | PRM.DC ---
Discharge Summary Date of Discharge: Apr 16, 2017 Reason for Visit: Difficulty breathing Patient History: Alzheimer's disease G8 SISTER, , Age:63 Asthma 19 CHILD 19 CHILD Cerebrovascular disorder G8 SISTER, , Age:60 years and older Diabetes mellitus G8 BROTHER, , Age:79 19 CHILD 19 CHILD FH: Parkinson's disease G8 BROTHER, , Age:52 Hypertension 32 MOTHER, , Age:74 33 FATHER, , Age:74 G8 BROTHER, , Age:79 G8 BROTHER, , Age:52 G8 SISTER, , Age:60 years and older 19 CHILD No Family History of: Chronic obstructive pulmonary disease Congestive heart failure Diabetes insipidus Parkinson's disease History Present Illness: General: Alert, Oriented X3, Cooperative, No acute distress HEENT: PERRLA, EOMI Neck: Supple, No JVD Lungs: Clear to auscultation, Normal air movement Heart: Regular rate, Normal S1, Normal S2 Abdomen: Normal bowel sounds, Soft, No tenderness Extremities: No clubbing, No cyanosis, No edema Skin: No breakdown, No significant lesion Neuro: Normal speech, Strength at 5/5 X4 ext, Cranial nerves 3-12 NL Psych/Mental Status: Mental status NL, Mood NL Results(Labs/Rad) Laboratory Tests Test 04/14/17 20:12 04/15/17 19:10 Glucose Level 411 mg/dL 200 mg/dL White Blood Count 12.6 10^3/uL Red Blood Count 2.74 10^6/uL Hemoglobin 8.1 g/dL Hematocrit 25.3 % Mean Corpuscular Volume 92.3 fL Mean Corpuscular Hemoglobin 29.6 pg Mean Corpuscular Hemoglobin Concent 32.0 g/dL Red Cell Distribution Width 13.0 % Platelet Count 177 10^3/uL Mean Platelet Volume 9.7 fL Sodium Level 137 mmol/L Potassium Level 3.6 mmol/L Chloride Level 102.0 mmol/L Carbon Dioxide Level 27.4 mmol/L Blood Urea Nitrogen 15 mg/dL Creatinine 0.89 mg/dL Calcium Level 8.2 mg/dL Anion Gap 11.2 Estimated GFR () 75.2 BUN/Creatinine Ratio 16.0 Laboratory Tests 04/16/17 14:46: White Blood Count 9.1, Red Blood Count 2.76L, Hemoglobin 8.2L, Hematocrit 25.7L , Mean Corpuscular Volume 93.1, Mean Corpuscular Hemoglobin 29.7, Mean Corpuscular Hemoglobin Concent 31.9L, Red Cell Distribution Width 13.1, Platelet Count 175, Mean Platelet Volume 9.9, Neutrophils (%) (Auto) 60.6, Lymphocytes (%) (Auto) 31.0, Monocytes (%) (Auto) 6.5, Neutrophils # (Auto) 5.5 , Lymphocytes # (Auto) 2.8, Monocytes # (Auto) 0.6, Absolute Immature Granulocyte (auto 0.01, Eosinophils % 1.6, Basophils % 0.2, Basophils # 0.0, Eosinophil Count 0.2, Percent Immature Gran (Cell Imm) 0.10 Scheduled Acetaminophen (Acetaminophen), 500 MG PO HS, (Reported) B Complex with Vitamin C (B-Complex with C), 1 EACH PO DAILY, (Reported) Budesonide (Budesonide), 0.5 MG IH BID, (Reported) Carbidopa/Levodopa (Carbidopa-Levo Er 25-100 Tab), 1 EACH PO QID, (Reported) Cholecalciferol (Vitamin D3) (Vitamin D3), 1 UNIT PO DAILY, (Reported) Clopidogrel Bisulfate (Plavix), 75 MG PO DAILY, (Reported) Doxycycline Hyclate (Doxycycline Hyclate), 100 MG PO BID Duloxetine Hcl (Cymbalta), 60 MG PO DAILY, (Reported) Gabapentin (Neurontin), 400 MG PO QID, (Reported) Insulin Aspart (Novolog), 15 UNIT SQ TID, (Reported) Insulin Detemir (Levemir), 33.3 UNIT SQ BID, (Reported) Insulin Detemir (Levemir), 60 UNIT SQ HS, (Reported) Isosorbide Mononitrate (Isosorbide Mononitrate Er), 30 MG PO DAILY, (Reported) Lorazepam (Lorazepam), 1 MG PO BID, (Reported) Lorazepam (Lorazepam), 1 MG PO TID, (Reported) Metoprolol Tartrate (Lopresser 100MG), 100 MG PO DAILY, (Reported) Pravastatin Sodium (Pravastatin Sodium), 40 MG PO HS, (Reported) Ramipril 2.5MG (Altace 2.5MG), 2.5 MG PO DAILY, (Reported) Ticagrelor (Brilinta), 90 MG PO BID Tramadol Hcl (Tramadol Hcl), 50 MG PO BID, (Reported) Varenicline Tartrate (Chantix), 1 EACH PO BID Zolpidem Tartrate (Zolpidem Tartrate), 10 MG PO HS, (Reported) Scheduled PRN Fluticasone/Vilanterol (Breo Ellipta 100-25 Mcg INH), 1 EACH IH for SHORTNESS OF BREATH, (Reported) Miscellaneous Medications Arformoterol Tartrate (Brovana), 15 MCG IH, (Reported) Ipratropium/Albuterol Sulfate (Iprat-Albut 0.5-3(2.5) Mg/3 Ml), 3 ML IH, ( Reported) Sepsis Evaluation @ Discharge Course Blood Pressure Systolic: 139 Blood Pressure Diastolic: 57 Blood Pressure Mean: 84 Notes Ms Bellamy presented to the ER with a complaint of weakness and low blood pressure. There was concerns for a GI bleed. Her hemoglobin was stable and she did not require blood transfusion. She also had significant pain which was chronic for her. She had evidence of a COPD exacerbation and was treated with IV antibiotics and nebulizer treatments. She does have a significant tobacco use history. Over the next few days there was no evidence of a GI bleed and her respiratory status did improve. She was switched to oral antibiotics and continued to improve. She was tolerating diet well and ambulating. Plan Discharge Date: Apr 17, 2017 Dicharge DX: 1. COPD exacerabtion, 2. Anemia of chronic disease, 3. Asthenia Discharge Disposition: Stable Plan Medications per discharge list Diet and activity as tolerated No smoking Follow up with PCP 1-2 weeks Discharge plans discussed with patient, she is her own decision maker and does understand and concur with plans Time spent 25 minutes KULWINDER PAYNE MD Apr 16, 2017 14:49
[2017-04-16 15:02] LABS: BASOPHIL % 0.2 % (0.0-0.2); EOSINOPHIL # 0.2 10^3/uL (0.0-0.2); EOSINOPHIL % 1.6 % (0.0-5.0); HEMOGLOBIN 8.2 g/dL (12.0-15.0); LYMPHOCYTES # 2.8 10^3/uL (1.0-4.8); MEAN CELL HGB 29.7 pg (26-34); MEAN CELL HGB CONCENTRATION 31.9 g/dL (33-37); MEAN CORP VOLUME 93.1 fL (78-100); MEAN PLATELET VOLUME 9.9 fL (7.8-11.0); MONOCYTES # 0.6 10^3/uL (0.3-0.8); MONOCYTES % 6.5 % (5.0-12.0); NEUTROPHIL # 5.5 10^3/uL (1.8-7.7); NEUTROPHILS % 60.6 % (41.0-85.0); RED CELL DISTRIBUTION WIDTH 13.1 % (11.5-14.5); WHITE BLOOD CELL 9.1 10^3/uL (4.5-11.0)
[2017-04-16 15:30] VITALS: BP 157/53
--- NOTE | 2017-04-16 16:22 | DIREP ---
PROCEDURE:CHEST 2 VIEWS COMPARISON:[facility], CR, XRAY CHEST SINGLE VW, 03/27/2017, 03:38 PM. INDICATIONS:Shortness of breath FINDINGS: LUNGS/PLEURA:No significant pulmonary parenchymal abnormalities. No effusions. VASCULATURE:Normal. Unremarkable pulmonary vasculature. CARDIAC:Normal. No cardiac silhouette abnormality or cardiomegaly. MEDIASTINUM:Normal. No visible mass or adenopathy. BONES: There are degenerative osteophytes in the thoracic spine. OTHER:Negative. CONCLUSION: 1. No acute cardiopulmonary abnormality. Dictated by: Giles Cotton Jr. on 04/16/2017 at 04:21 PM
--- NOTE | 2017-04-16 17:36 | PNH ---
DATE: 04/15/2017 SUBJECTIVE: She still complains of significant pain. She has not been out of bed much. She is tolerating a diet well. She is on oxygen at 2 liters at home at night, but she is using oxygen during the day here. She has significant anxiety. OBJECTIVE: VITAL SIGNS: T-max the last 24 hours was 99.1 degrees Fahrenheit, pulse of 85, respiratory rate 16, blood pressure 125/51 mmHg, and O2 saturation 97% on 3 liters nasal cannula. GENERAL: She is alert, a chronically ill-appearing lady, anxious, in no acute distress. HEENT: Pupils are equal, round, and reactive to light. Sclerae are anicteric. Oropharynx is clear. Mucous membranes are moist. NECK: Supple, no lymphadenopathy. CARDIOVASCULAR: At the time of exam was regular rate and rhythm. LUNGS: Decreased at the bases. No wheezing at the time of exam. ABDOMEN: Soft. Bowel sounds are present. Nontender to palpation. EXTREMITIES: No cyanosis, clubbing, or significant edema. NEUROLOGIC: Grossly nonfocal. LABORATORY DATA: CBC: White count 12.6, hemoglobin 8.1, platelets 177. BMP: Sodium 137, potassium 3.6, chloride 102, CO2 27, BUN 15, creatinine 0.9, glucose 200, calcium 8.2. ASSESSMENT AND PLAN: The patient is a 71-year-old woman here with acute on chronic back pain, chronic pain syndrome, anemia due to chronic disease and acute blood loss, uncontrolled diabetes mellitus type 2, COPD, gastritis, tobacco abuse, and anxiety disorder. 1. We will continue to titrate off oxygen as tolerated. Nebulizer treatment will be scheduled and as needed. 2. Follow hemoglobin. She does not show signs of significant bleeding. 3. Encourage ambulation. 4. Appropriate p.r.n. pain and nausea medication. 5. She has urinary retention, likely secondary to IV opiates. We will titrate off IV opiates as much as possible. 6. DVT prophylaxis with SCDs. Time spent with the patient on April 15, 2017: 25 minutes Terrence Valerio MD DR: KRISTEL/winnie JOB# [id number]
[2017-04-16] MEDS: TYLENOL PO PRN (18:24)
--- NOTE | 2017-04-16 18:45 | NUR ---
REPORT REPORT GIVEN TO SHANON FLAHERTY AND [facility]
[2017-04-16 18:55] VITALS: BP 156/76
[2017-04-16] MEDS: VIBRAMYCIN PO SCH (21:45)
[2017-04-16] MEDS: TYLENOL PO SCH (21:46)
[2017-04-16] MEDS: ZOCOR PO SCH (21:46)
[2017-04-17 00:02] VITALS: BP 156/85
[2017-04-17 04:08] VITALS: BP 152/75
--- NOTE | 2017-04-17 06:40 | NUR ---
REPORT RECEIVED REPORT FROM SHANON FLAHERTY AND [facility]
[2017-04-17] MEDS: PULMICORT IH SCH (09:00)
[2017-04-17] MEDS: VIBRAMYCIN PO SCH (09:03)
[2017-04-17] MEDS: PLAVIX PO SCH (09:03)
[2017-04-17] MEDS: IMDUR PO SCH (09:03)
[2017-04-17] MEDS: NEURONTIN PO SCH (09:03)
[2017-04-17] MEDS: SINEMET 25/100 PO SCH (09:03)
[2017-04-17] MEDS: ATIVAN PO SCH (09:04)
[2017-04-17] MEDS: CYMBALTA PO SCH (09:04)
[2017-04-17] MEDS: ALTACE PO SCH (09:04)
[2017-04-17] MEDS: LEVEMIR SQ SCH (09:09)
[2017-04-17] MEDS: NOVOLOG SQ PRN (09:10)
--- NOTE | 2017-04-17 09:13 | NUR ---
DISCHARGE DISCHARGE INSTRUCTIONS GIVEN, VOICED UNDERSTANDING.
[2017-04-17 09:40] VITALS: BP 145/70
--- NOTE | 2017-04-17 09:40 | NUR ---
DISCHARGE PT DISCHARGE HOME WITH FAMILY VIA WC IN STABLE CONDITION.
--- NOTE | 2017-04-18 09:07 | PNH ---
DATE: 04/16/2017 SUBJECTIVE: She is ambulating within the room. She states she is feeling better. She still complains of chronic pain. Initial plans were to talk about discharge, but due to family and patient discomfort, they decided to stay one more day. X-ray done, but did not reveal any consolidation. OBJECTIVE: VITAL SIGNS: T-max last 24 hours is 98.5, pulse 90, respiratory rate 18, blood pressure 157/53, O2 saturation 97% on room air. GENERAL: She is alert, chronic ill-appearing lady. HEENT: Pupils equal, round, reactive to light. Sclerae are anicteric. Oropharynx is clear. Mucous membranes are moist. NECK: Supple, no lymphadenopathy. CARDIOVASCULAR: At time of exam was regular rate and rhythm. LUNGS: Decreased at the bases bilaterally. No wheezing at time of exam. ABDOMEN: Soft. Bowel sounds are present, nontender to palpation. EXTREMITIES: No cyanosis, clubbing or significant edema. NEUROLOGIC: Grossly nonfocal. LABORATORY DATA: CBC: White count is 9.1, hemoglobin 8.2, platelets 175,000. Differential: 60% neutrophils, 31% lymphocytes, 6% monocytes. Sodium 137, potassium 3.6, chloride 102, CO2 is 27, BUN 15, creatinine 0.9, glucose 200, calcium is 8.2. ASSESSMENT AND PLAN: The patient is a 71-year-old woman here with COPD exacerbation with chronic pain, anxiety disorder, anemia due to chronic disease and uncontrolled diabetes mellitus type 2. 1. We will continue current antibiotics. We will switch to doxycycline orally. 2. Encourage ambulation. 3. Appropriate p.r.n. pain and nausea medication. 4. We will discontinue urinary catheter and follow to make sure if she is able to urinate well off IV opiates. 5. DVT prophylaxis with SCDs. Time spent with the patient on 04/16/2017 is 25 minutes. Terrence Valerio MD DR: KRISTEL/winnie JOB# [id number]
== END 2017-04-17 09:40 | disposition home or self-care (01) | DRG 191 ==
LOC: EDBD 13:54 → ER 13:54 → MS 16:16
PROVIDERS: ADMIT Internal Medicine; ATTEND Internal Medicine
DX: J44.1 Chronic obstructive pulmonary disease with (acute) exacerbation (principal); D62 Acute posthemorrhagic anemia; E11.51 Type 2 diabetes mellitus with diabetic peripheral angiopathy without gangrene; G20 Parkinson's disease; I11.0 Hypertensive heart disease with heart failure; I95.9 Hypotension, unspecified; F13.20 Sedative, hypnotic or anxiolytic dependence, uncomplicated; I50.30 Unspecified diastolic (congestive) heart failure; E11.9 Type 2 diabetes mellitus without complications; M54.5 Low back pain; D63.8 Anemia in other chronic diseases classified elsewhere; E86.0 Dehydration; E78.5 Hyperlipidemia, unspecified; F17.210 Nicotine dependence, cigarettes, uncomplicated; G89.4 Chronic pain syndrome; F41.9 Anxiety disorder, unspecified; I25.10 Atherosclerotic heart disease of native coronary artery without angina pectoris; K29.70 Gastritis, unspecified, without bleeding; R33.9 Retention of urine, unspecified; Z79.82 Long term (current) use of aspirin; Z95.5 Presence of coronary angioplasty implant and graft; Z90.49 Acquired absence of other specified parts of digestive tract; Z90.710 Acquired absence of both cervix and uterus; Z88.5 Allergy status to narcotic agent; Z79.899 Other long term (current) drug therapy; Z83.3 Family history of diabetes mellitus; Z82.49 Family history of ischemic heart disease and other diseases of the circulatory system; Z82.3 Family history of stroke; Z82.5 Family history of asthma and other chronic lower respiratory diseases; Z82.0 Family history of epilepsy and other diseases of the nervous system
CPT/HCPCS: 36415; 70450; 71020; 72125; 80048; 80053; 81000; 82550; 82553; 82947; 82948; 84484; 85014; 85018; 85025; 85027; 85610; 93005; 94640; 96372; 96374; 99285; A4338; C9113; J0696; J1170; J1815; J1885; J3490; J7030; J7050; J7060; J7620; J7627; J8499

== ENCOUNTER 2017-04-18 11:06 | Observation (INO) | payer MEDICARE, MEDICAID ==
[~2017-04-18] VITALS: Ht 154.9 cm; Wt 72.7 kg
[~2017-04-18 11:06] MED LIST changes: +DOXY100C2 PO
--- NOTE | 2017-04-18 11:28 | NUR ---
Dr. Dennys Noyola at assessing pt and obtaining HX
[2017-04-18] MEDS ORDERED: PREDNISONE PO STA (11:30)
[2017-04-18] MEDS ORDERED: PREDNISONE ONE (12:02)
[2017-04-18 12:03] LABS: BASOPHIL % 0.6 % (0.0-0.2); EOSINOPHIL # 0.3 10^3/uL (0.0-0.2); EOSINOPHIL % 4.5 % (0.0-5.0); HEMOGLOBIN 8.4 g/dL (12.0-15.0); LYMPHOCYTES # 3.1 10^3/uL (1.0-4.8); LYMPHOCYTES % 42.1 % (24.0-44.0); MEAN CELL HGB 29.2 pg (26-34); MEAN CELL HGB CONCENTRATION 31.7 g/dL (33-37); MEAN PLATELET VOLUME 9.6 fL (7.8-11.0); MONOCYTES # 0.7 10^3/uL (0.3-0.8); MONOCYTES % 9.5 % (5.0-12.0); NEUTROPHIL # 3.1 10^3/uL (1.8-7.7); NEUTROPHILS % 42.9 % (41.0-85.0); RED CELL DISTRIBUTION WIDTH 12.7 % (11.5-14.5); WHITE BLOOD CELL 7.3 10^3/uL (4.5-11.0)
--- NOTE | 2017-04-18 12:09 | DIREP ---
PROCEDURE:CHEST 1 VIEW COMPARISON:[facility], CR, XRAY CHEST 2 VWS, 04/16/2017, 03:56 PM. INDICATIONS:dyspnea FINDINGS: LUNGS/PLEURA:No significant pulmonary parenchymal abnormalities. No effusions. Lungs are mildly hyperexpanded. No pneumonia, heart failure or effusions are seen. VASCULATURE:Normal. Unremarkable pulmonary vasculature. CARDIAC:Normal. No cardiac silhouette abnormality or cardiomegaly. MEDIASTINUM:Normal. No visible mass or adenopathy. BONES:Normal. No fracture or visible bony lesion. DJD in both AC joints. OTHER:Negative. CONCLUSION:No active disease. No pneumonia is seen. Dictated by: Michi Syed MD on 04/18/2017 at 12:07 PM
[2017-04-18 12:29] LABS: ALANINE AMINOTRANSFERASE 8 U/L (12-78); ALKALINE PHOSPHATASE 76 U/L (50-136); ASPARTATE AMINO TRANSFERASE 18 U/L (0-35); CALCIUM 9.1 mg/dL (8.4-10.5); GLUCOSE 283 mg/dL (70-110)
--- NOTE | 2017-04-18 13:12 | PCM.EKG ---
[facility] Test Date: 2017-04-18 Test Time: 13:10:23 Pat Name: DARYN CHUA Department: Room: 340 Gender: F Patient Case Coordinator: MICHOACANO : 1945 Requested By: THI ALEXIS Order Number: [id number] Reading MD: Zach BURTON Measurements Intervals [place] Rate: 73 P: 56 OK: 138 QRS: 30 QRSD: 76 T: 98 QT: 400 QTc: 440 Interpretive Statements Normal sinus rhythm Low voltage QRS Borderline ECG Compared to ECG 04/13/2017 14:31:47 No significant changes Electronically Signed On 04-19-2017 17:23:54 [employer] by Zach BURTON Please click the below link to view image of tracing.
--- NOTE | 2017-04-18 13:24 | NUR ---
DR MOOK ALEXIS ON PHONE WITH DR DELVALLE
--- NOTE | 2017-04-18 15:02 | NUR ---
ADMIT PREP BED BATH PROVIDED, ASSISTED TO RESTROOM BOWEL MOVEMENT NOTED--DARK RED, TARRY STOOL NOTED WITH GI BLEED ODOR. PERSONAL CLOTHING REMOVED, ASSISTED INTO HOSPITAL GOWN PATIENT STATES SHE HAS ARTHRITIS AND IS IN PAIN 8/ GENERALIZED
--- NOTE | 2017-04-18 15:17 | ER.PDOC ---
General Chief Complaint: Dyspnea/Respdistress Stated Complaint: COPD EXACERBATION Time seen by MD: 15:00 Source: patient History of Present Illness Timing/Duration: 24 hours Severity: mild Activities at Onset: activity/exertion Prior Episodes/Possible Cause: occasional episodes Prior symptoms/Treatment: Recenly Seen (IN PATIENT FOR LOWER GI BLEED) Allergies: Coded Allergies: butorphanol (Verified Allergy, Severe, 01/22/17) pentazocine (Verified Allergy, Severe, 01/22/17) codeine (Verified Adverse Reaction, Intermediate, GI UPSET, 03/15/17) Home Meds Active Scripts Doxycycline Hyclate (DOXYCYCLINE HYCLATE) 100 Mg Capsule, 100 MG PO BID for 5 Days, #10 CAP Prov:KULWINDER PAYNE MD 04/16/17 Varenicline Tartrate (CHANTIX) 1 Each Tab.ds.pk, 1 EACH PO BID for 30 Days, 0 Refills DIRECTED IN STARTER CONVENIENCE PACK. Prov:MARIAM CUNNINGHAM APRN, NP 02/23/17 Ticagrelor (BRILINTA) 90 Mg Tablet, 90 MG PO BID for PCI, #180 TABLET 4 Refills Prov:MARIAM CUNNINGHAM APRN, NP 02/23/17 Reported Medications Clopidogrel Bisulfate (PLAVIX) 75 Mg Tablet, 75 MG PO DAILY, TABLET 03/15/17 Insulin Detemir (LEVEMIR) 100 Unit/1 Ml Vial, 60 UNIT SQ HS, VIAL 02/20/17 Tramadol Hcl (TRAMADOL HCL) 50 Mg Tablet, 50 MG PO BID, TABLET 01/22/17 Lorazepam (LORAZEPAM) 1 Mg Tablet, 1 MG PO TID, TABLET 01/22/17 Isosorbide Mononitrate (ISOSORBIDE MONONITRATE ER) 30 Mg Tab.er.24h, 30 MG PO DAILY 01/22/17 Acetaminophen (ACETAMINOPHEN) 500 Mg Tablet, 500 MG PO HS, TABLET 01/22/17 Cholecalciferol (Vitamin D3) (VITAMIN D3) 5,000 Unit Tablet, 1 UNIT PO DAILY, TABLET 01/22/17 B Complex with Vitamin C (B-Complex with C) 1 Each Tablet, 1 EACH PO DAILY, TABLET 01/22/17 Zolpidem Tartrate (ZOLPIDEM TARTRATE) 10 Mg Tablet, 10 MG PO HS, TABLET 8/21/17 Ipratropium/Albuterol Sulfate (IPRAT-ALBUT 0.5-3(2.5) MG/3 ML) 3 Ml Ampul.neb, 3 ML IH 10/19/14 Fluticasone/Vilanterol (Breo Ellipta 100-25 Mcg INH) 1 Each Aer.pow.ba, 1 EACH IH Y for SHORTNESS OF BREATH 10/19/14 Arformoterol Tartrate (BROVANA) 15 Mcg/2 Ml Vial.neb, 15 MCG IH 10/19/14 Gabapentin (NEURONTIN) 300 Mg Capsule, 400 MG PO QID, #90 CAP 3 Refills 05/06/14 Insulin Detemir (LEVEMIR) 100 Unit/1 Ml Vial, 33.3 UNIT SQ BID, VIAL 05/04/14 Pravastatin Sodium (PRAVASTATIN SODIUM) 40 Mg Tablet, 40 MG PO HS, TABLET 05/04/14 Metoprolol Tartrate (LOPRESSER 100MG) 100 Mg Tablet, 100 MG PO DAILY for HYPERTENSION, #60 TAB 05/04/14 Duloxetine Hcl (CYMBALTA) 60 Mg Capsule.dr, 60 MG PO DAILY 05/04/14 Insulin Aspart (NOVOLOG) 100 Unit/1 Ml Insuln.pen, 15 UNIT SQ TID 05/04/14 Ramipril 2.5MG (ALTACE 2.5MG) 2.5 Mg Capsule, 2.5 MG PO DAILY, CAPSULE 05/04/14 Carbidopa/Levodopa (CARBIDOPA-LEVO ER 25-100 TAB) 1 Each Tablet.er, 1 EACH PO QID 05/04/14 Lorazepam (LORAZEPAM) 1 Mg Tablet, 1 MG PO BID, TABLET 05/04/14 Budesonide (BUDESONIDE) 0.5 Mg/2 Ml Ampul.neb, 0.5 MG IH BID 05/04/14 Past Medical History Medical History: cardiac problems, congestive heart failure, COPD, diabetes, hypertension Surgical History: appendectomy, cholecystectomy, , hysterectomy LMP (females 10-50): hysterectomy Social History Smoking: non-smoker Alcohol Use: none Drug Use: none Review of Systems Constitutional: no symptoms reported EENTM: no symptoms reported Respiratory: cough, shortness of breath Cardiovascular: no symptoms reported Gastrointestinal: no symptoms reported Musculoskeletal: neck pain Skin: no symptoms reported Psychiatric/Neurological: no symptoms reported Endocrine: no symptoms reported All Other Systems: Reviewed and Negative Physical Exam General Appearance: No Apparent Distress, WD/WN HEENT: PERRL/EOMI, Normal ENT Inspection, TMs Normal, Pharynx Normal Neck: Tender Lateral Respiratory: accessory muscle use, rhonchi Cardiovascular: Normal Peripheral Pulses, Regular Rate, Rhythm, No Edema, No Gallop, No JVD, No Murmur Gastrointestinal: Normal Bowel Sounds, No Organomegaly, No Pulsatile Mass, Non Tender, Soft Extremities: Normal Range of Motion, Non-Tender, Normal Inspection, No Pedal Edema, No Calf Tenderness, Normal Capillary Refill Neurologic/Psychiatric: 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 NML as Tested, No Motor/Sensory Deficits, Alert, Normal Mood/Affect, Oriented x 3 Skin: Normal Color, Warm/Dry Results/Orders Results/Orders Laboratory Tests Test 04/18/17 11:50 White Blood Count 7.3 10^3/uL (4.5-11.0) Red Blood Count 2.88 10^6/uL (4.00-5.20) Hemoglobin 8.4 g/dL (12.0-15.0) Hematocrit 26.5 % (36.0-46.0) Mean Corpuscular Volume 92.0 fL (78-100) Mean Corpuscular Hemoglobin 29.2 pg (26-34) Mean Corpuscular Hemoglobin Concent 31.7 g/dL (33-37) Red Cell Distribution Width 12.7 % (11.5-14.5) Platelet Count 257 10^3/uL (150-400) Mean Platelet Volume 9.6 fL (7.8-11.0) Neutrophils (%) (Auto) 42.9 % (41.0-85.0) Lymphocytes (%) (Auto) 42.1 % (24.0-44.0) Monocytes (%) (Auto) 9.5 % (5.0-12.0) Neutrophils # (Auto) 3.1 10^3/uL (1.8-7.7) Lymphocytes # (Auto) 3.1 10^3/uL (1.0-4.8) Monocytes # (Auto) 0.7 10^3/uL (0.3-0.8) Absolute Immature Granulocyte (auto 0.03 10^3 u/L (0-2) Eosinophils % 4.5 % (0.0-5.0) Basophils % 0.6 % (0.0-0.2) Basophils # 0.0 10^3/uL (0.0-0.1) Eosinophil Count 0.3 10^3/uL (0.0-0.2) Prothrombin Time 10.5 SEC (9.8-11.9) Prothrombin Time INR (Non-Therap) 1.0 Activated Partial Thromboplast Time 27.1 SEC (24.67-30.72) D-Dimer 0.35 mg/L (0.19-0.49) Sodium Level 139 mmol/L (132-145) Potassium Level 4.4 mmol/L (3.6-5.2) Chloride Level 103.0 mmol/L (96-109) Carbon Dioxide Level 31.0 mmol/L (20.0-32) Anion Gap 9.4 Blood Urea Nitrogen 10 mg/dL (7-18) Creatinine 0.78 mg/dL (0.59-1.40) Estimated GFR () 87.6 (>/=60) BUN/Creatinine Ratio 12.0 Glucose Level 283 mg/dL (70-110) Calcium Level 9.1 mg/dL (8.4-10.5) Total Bilirubin 0.3 mg/dL (0.2-1.0) Aspartate Amino Transf (AST/SGOT) 18 U/L (0-35) Alanine Aminotransferase (ALT/SGPT) 8 U/L (12-78) Alkaline Phosphatase 76 U/L (50-136) Total Creatine Kinase 72 U/L (26-192) Creatine Kinase MB 0.4 ng/mL (0.5-3.6) Troponin I < 0.02 ng/mL (0.00-0.05) Pro-B-Type Natriuretic Peptide 561 pg/mL (0-125) Total Protein 7.0 g/dL (6.4-8.2) Albumin 2.9 g/dL (3.4-5.0) Globulin 4.1 Percent Immature Gran (Cell Imm) 0.40 % (0.00-0.50) Administered Medications Medications (Trade) Dose Ordered Sig/Romulo Route PRN Reason Start Time Stop Time Status Last Admin Dose Admin Prednisone (Prednisone) 40 mg STAT STAT PO 04/18/17 11:30 04/18/17 11:32 DC 04/18/17 12:24 EKG/XRAY/CT/US EKG: NSR, no ST T wave changes Consult/PCP Time Consult/PCP Called: 14:44 Consult/PCP: DR DELVALLE Course Blood Pressure Systolic: 133 Blood Pressure Diastolic: 54 Blood Pressure Mean: 80 Departure Time of Disposition: 16:00 Disposition: 09 ADMITTED INPATIENT Impression: Primary Impression: Anxiety state Additional Impression: Chronic obstructive pulmonary disease Referrals: JAVIER GRIFFITH MD (PCP) PRIMARY CARE PROVIDER Problem Qualifiers THI ALEXIS MD Apr 18, 2017 15:17
[2017-04-18 16:22] VITALS: BP 170/85
[2017-04-18] MEDS ORDERED: SINEMET 25/100 ONE (20:19)
[2017-04-18] MEDS ORDERED: NEURONTIN ONE (20:19)
[2017-04-18 20:21] VITALS: BP 164/78
[2017-04-18] MEDS: NEURONTIN PO SCH (20:25)
[2017-04-18] MEDS: BRILINTA PO SCH (20:26)
[2017-04-18] MEDS: ATIVAN PO SCH (20:26)
[2017-04-18] MEDS: SINEMET PO SCH (20:26)
[2017-04-18] MEDS ORDERED: MORPHINE SULFATE IV ONE (20:30)
[2017-04-18] MEDS ORDERED: ULTRAM PO SCH (21:00)
[2017-04-18] MEDS ORDERED: ZOCOR PO SCH (21:00)
[2017-04-18] MEDS ORDERED: DUONEB 0.5 MG-3 MG/3 ML SOLN IH SCH (21:00)
[2017-04-18] MEDS: VIBRAMYCIN PO SCH (21:00)
[2017-04-18] MEDS ORDERED: HUMALOG SQ SCH (21:00)
[2017-04-18] MEDS ORDERED: LEVEMIR SQ SCH ×2 (21:00)
[2017-04-18] MEDS ORDERED: TYLENOL PO SCH (21:00)
[2017-04-18] MEDS ORDERED: PULMICORT IH SCH (21:00)
[2017-04-18] MEDS ORDERED: AMBIEN PO SCH (21:00)
--- NOTE | 2017-04-18 21:00 | NUR ---
Dr Stallings notified of 436 blood sugar, received new orders
--- NOTE | 2017-04-18 21:29 | HPH ---
ADMIT DATE: 04/18/2017 The patient is being placed under observation to Medical-Surgical Nursing. PRIMARY CARE PHYSICIAN: Lonnie Lopez MD ADMITTING DIAGNOSES: 1. Chronic obstructive pulmonary disease exacerbation with wheezing, cough, and shortness of breath. 2. Coronary artery disease with acute anemia and chronic neck pain with diabetes. HISTORY OF PRESENT ILLNESS: Please refer to the History and Physical that was done by Dr. Valerio on April 14, 2017, which was 4 days ago, and please use that as the H and P since it has been done within 30 days, and what I will dictate will serve as an H and P. The patient was discharged from the hospital 2 days ago. She was being treated for COPD along with following her anemia status after a stent was placed from a cardiac catheterization. She did not require blood transfusion and was sent home on treatment for the COPD. She comes back to the ER today saying that she is getting short of breath again and coughing. No fever. Chest x-ray does not show any pneumonia. Her O2 sats are actually 94% on room air, but due to the fact that she is more symptomatic now, the ER asked me to put her in overnight and to treat her COPD. PLAN: I am going to re-start her on DuoNeb treatments 4 times a day and I will get her to use incentive spirometry and flutter valve. Continue the antibiotic. I will not give her steroids since her sugars are high with her underlying diabetes at this point, and she is actually maintaining her oxygenation. I expect her to improve overnight to be discharged tomorrow. Ilene Stallings MD DR: MOSES/winnie JOB# [id number]
[2017-04-18] MEDS ORDERED: SOLU-MEDROL IV SCH (22:00)
[2017-04-19 01:00] VITALS: BP 179/85
--- NOTE | 2017-04-19 04:22 | NUR ---
0900 dose of imdur 30mg po give at this time for elevated bp, report to charge nurse
[2017-04-19 04:46] VITALS: BP 192/82
--- NOTE | 2017-04-19 06:20 | NUR ---
Report to Ximena FLAHERTY
[2017-04-19] MEDS ORDERED: HUMALOG SQ SCH (08:00)
[2017-04-19] MEDS ORDERED: SINEMET 25/100 ONE (08:27)
[2017-04-19] MEDS ORDERED: VITAMIN D2 PO ONE (08:27)
[2017-04-19] MEDS ORDERED: NEURONTIN ONE (08:27)
[2017-04-19] MEDS ORDERED: ALTACE ONE (08:28)
[2017-04-19] MEDS: ATIVAN PO SCH (08:34)
[2017-04-19] MEDS: BRILINTA PO SCH (08:34)
[2017-04-19] MEDS: NEURONTIN PO SCH (08:35)
[2017-04-19] MEDS: SINEMET PO SCH (08:35)
[2017-04-19 08:37] VITALS: BP 171/88
--- NOTE | 2017-04-19 08:45 | NUR ---
DISCHARGE PLAN PATIENT IS CURRENTLY LIVING @ HOME WITH HER DAUGHTER WHOM IS HER PROVIDER. SHE HAS A WALKER, CANE, AND SHOWER CHAIR IN PLACE @ HOME SHE USES NEEDED. PATIENT CURRENTLY HAS HOME O2 AND [facility] IN PLACE. CM NOTIFIED [facility] AND SPOKE TO PATIENTS NURSE MAURY FLAHERTY REGARDING PATIENTS HOSPITAL ADMISSION VERSES READMISSION, DISCHARGE FOR TODAY AND HANDED OFF REPORT. MAURY STATED SHE HAD EDUCATED PATIENT ON NOTIFYING HER OR HH PRIOR TO EMS CALL TO SEE IF HH COULD ELEVATE PATIENTS CONCERNS. MAURY ALSO STATED SHE WOULD SEE PATIENT TODAY AND ASSIST PATIENT WITH ANY FURTHER DISCHARGE NEEDS. CURRENT GOAL FOR PATIENT IS TO RETURN BACK HOME WITH DAUGHTER TO ROUTINE CARE UPON DISCHARGE WITH CURRENT HH AGENCY AND PROVIDERS IN PLACE. NO FURTHER CM OR DISCHARGE NEEDS KNOWN @ THIS TIME.
[2017-04-19] MEDS ORDERED: NEURONTIN PO SCH (08:59)
[2017-04-19] MEDS: VIBRAMYCIN PO SCH (09:00)
[2017-04-19] MEDS ORDERED: LOPRESSOR PO SCH (09:00)
[2017-04-19] MEDS ORDERED: VITAMIN B-COMPLEX WITH VIT C PO SCH (09:00)
[2017-04-19] MEDS ORDERED: IMDUR PO SCH (09:00)
[2017-04-19] MEDS ORDERED: CYMBALTA PO SCH (09:00)
[2017-04-19] MEDS ORDERED: ALTACE PO SCH ×2 (09:00)
[2017-04-19] MEDS ORDERED: VITAMIN D PO SCH (09:00)
[2017-04-19 10:50] VITALS: BP 171/88
--- NOTE | 2017-04-19 19:34 | DSH ---
DATE OF DISCHARGE: 04/19/2017 ADMITTING DIAGNOSES: 1. COPD exacerbation. 2. Neck pain. 3. Coronary artery disease. 4. Type 2 diabetes mellitus. DISCHARGE DIAGNOSES: 1. COPD. 2. Neck pain. 3. Coronary artery disease. 4. Diabetes. HOSPITAL COURSE: The patient is a 71-year-old female who was just discharged for anemia with COPD. She went home and was trying to do her breathing treatments, apparently she forgot to pickler helper an antibiotic script for her COPD exacerbation, but she comes back wheezing. Chest x-ray was clear. Her O2 sats were good. I went ahead and gave her breathing treatments every 6 hours and continue her doxycycline that she was supposed to be on. Overnight, she has no longer wheezing, her lungs are clear. Her O2 sats are good. So, I explained to her and her family just to finish off the breathing treatments and the antibiotic. She does not require oxygen at this point. Due to the fact that her sugars are high, I am not giving her any steroids at this time, but she is stable to be discharged. I have asked her to continue her home medications and take her breathing treatments 3 times a day for now and finish off the doxycycline antibiotic. Followup with Dr. Lopez as scheduled and we are going to give her an incentive spirometer to go home with, to use frequently. Ilene Stallings MD DR: MOSES/winnie JOB# [id number]
== END 2017-04-19 10:58 | disposition home health service (06) ==
LOC: ER 11:06 → MS 13:45
PROVIDERS: ADMIT Pediatrics; ATTEND Pediatrics
DX: J44.1 Chronic obstructive pulmonary disease with (acute) exacerbation (principal); I25.10 Atherosclerotic heart disease of native coronary artery without angina pectoris; D64.9 Anemia, unspecified; M54.2 Cervicalgia; G89.29 Other chronic pain; E11.9 Type 2 diabetes mellitus without complications; I11.0 Hypertensive heart disease with heart failure; I50.9 Heart failure, unspecified; Z98.890 Other specified postprocedural states; Z90.710 Acquired absence of both cervix and uterus
CPT/HCPCS: 36415; 71010; 80053; 82550; 82553; 82947; 82948 ×2; 83880; 84484; 85025; 85379; 85610; 87040 ×2; 93005; 94640 ×2; 96372 ×2; 96374; 99285; G0378 ×21; J2270; J7512; J7620 ×2; J7627 ×2

== ENCOUNTER → 2017-04-23 | Outpatient (CLI) | payer MEDICARE, MEDICAID ==
--- NOTE | 2017-04-23 15:37 | DIREP ---
PROCEDURE:US DOPPLER CAROTID BILATERAL COMPARISON:[facility], CT, CT HEAD BRAIN W/O CONTRAST, 04/13/2017, 02:49 PM. [facility], US, US DOPPLER CAROTID BILATERAL, 10/21/2014, 11:47 AM. INDICATIONS:CAROTID ARTERY DISEASE BILATERAL, DIZZINESS TECHNIQUE:Duplex Doppler ultrasound utilizing color flow, ochoa scale, and spectral Doppler analysis techniques were performed to evaluate the cervical carotid arteries and vertebral flow. FINDINGS: PEAK SYSTOLIC FLOW VELOCITIES (cm/sec) RIGHT CCA:69 cm/s RIGHT ICA (Proximal):151 cm/s RIGHT ICA (Mid):267 cm/s RIGHT ICA (Distal):140 cm/s RIGHT ECA:146 cm/s RIGHT ICA/CCA:3.9 LEFT CCA:96 cm/s LEFT ICA (Proximal):107 cm/s LEFT ICA (Mid):388 cm/s LEFT ICA (Distal):138 cm/s LEFT ECA:97 cm/s LEFT ICA/CCA:4.0 RIGHT VERTEBRAL:Antegrade flow LEFT VERTEBRAL:Antegrade flow IMAGES:Intimal thickening and/or plaque formation. CONCLUSION: 1. The degree of stenosis in the right internal carotid artery is 70 based on systolic velocities. There is marked luminal narrowing on color Doppler ultrasound suggesting near occlusion. 2. The degree of stenosis in the left internal carotid artery is near occlusion. 3. Vascular surgery consultation is recommended. This report was communicated by telephone to Dr. Lopez. GUIDELINES: Consensus Panel Ochoa-scale and Doppler US Criteria for Diagnosis of ICA Stenosis Radiology, Apr 2003; Amaury et al. 229 (2): 340- 346 Degree of Stenosis (%) NormalWhen there is < 125 cm/s and no plaque or intimal thickening is visible < 50When there is < 125 cm/s and plaque or intimal thickening is visible 50 - 69When there is 125 - 230 cm/s and plaque is visible 70 but less than near occlusionWhen there is > 230 cm/s and visible plaque and luminal narrowing are seen Near occlusionWhen there is marked narrowed lumen at color Doppler US Total occlusionWhen there is no detectable patent lumen at grayscale US and no flow at spectral, power and color Doppler US COMMENT: Common carotid artery and external carotid artery stenosis * No well established Doppler criteria for grading stenosis. * Measuring stenosis on color coded images may underestimate the degree of stenosis Diagnostic pitfalls * Trickle flow near occlusion may be undetected * ICA stenosis may be underestimated due to poor cardiac function or tandem stenosis * Contralateral ICA stenosis may be overestimated due to crossover collateral flow * Moderate carotid stenosis may be underestimated due to normalization flow at bulb Dictated by: Merritt Hernandez M.D. on 04/23/2017 at 03:11 PM
--- NOTE | 2017-04-23 16:04 | DIREP ---
PROCEDURE:XRAY SPINE LUMBAR MIN 4 VWS COMPARISON:None. INDICATIONS:LOW BACK PAIN TECHNIQUE:AP, lateral, bilateral oblique, and coned down lateral views of the lumbar spine are provided. FINDINGS: ALIGNMENT:Normal. VERTEBRAE:No compression fractures are seen. Facet sclerosis identified. DISK SPACES:Large ventral osteophytes in the lower thoracic spine but most prominently at L2-3 but to a lesser extent throughout the thoracic spine. The intervertebral disc spaces are grossly preserved. SPONDYLOLISTHESIS:No obvious pars defect or spondylolisthesis is seen. SACROILIAC JOINTS:Normal. OTHER:Extensive atheromatous calcifications in the aorta. Vascular stents identified in the common iliac artery. 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 Vascular stents noted. Dictated by: Micih Syed MD on 04/23/2017 at 04:00 PM
--- NOTE | 2017-04-23 16:05 | DIREP ---
PROCEDURE:XRAY HIP MIN 2VW-LT COMPARISON:None. INDICATIONS:LEFT HIP PAIN FINDINGS: BONES:AP and frog-leg lateral view of the left hip provided. No acute fracture or trabecular discontinuity is seen. No AVN is identified. No significant joint space narrowing is seen. JOINTS:A spur formation with DJD in the sacroiliac joints. SOFT TISSUES:Normal. OTHER:No additional findings. Injection granuloma noted in the left gluteal region. CONCLUSION:No acute findings in the two views of the left hip. Dictated by: Michi Syed MD on 04/23/2017 at 04:03 PM
== END | disposition home or self-care (01) ==
LOC: RAD 10:45
PROVIDERS: ATTEND Internal Medicine
DX: I65.23 Occlusion and stenosis of bilateral carotid arteries (principal); R42 Dizziness and giddiness; M47.896 Other spondylosis, lumbar region; M25.551 Pain in right hip
CPT/HCPCS: 72110; 73502; 93880

== ENCOUNTER → 2017-07-16 | Outpatient (CLI) | payer MEDICARE, MEDICAID ==
[2017-07-16 21:08] LABS: MEAN CELL HGB 23.4 pg (26-34); MEAN CELL HGB CONCENTRATION 28.9 g/dL (33-37); MEAN CORP VOLUME 80.8 fL (78-100); MEAN PLATELET VOLUME 9.7 fL (7.8-11.0); WHITE BLOOD CELL 16.8 10^3/uL (4.5-11.0)
[2017-07-16 21:22] LABS: CALCIUM 9.8 mg/dL (8.4-10.5); CARBON DIOXIDE 33.5 mmol/L (20.0-32)
== END | disposition home or self-care (01) ==
LOC: LAB 15:30
PROVIDERS: ATTEND Internal Medicine Infectious Disease
DX: A49.02 Methicillin resistant Staphylococcus aureus infection, unspecified site (principal); T81.4XXA Infection following a procedure, initial encounter; X58.XXXA Exposure to other specified factors, initial encounter; Y93.89 Activity, other specified; Y92.89 Other specified places as the place of occurrence of the external cause; Y99.8 Other external cause status
CPT/HCPCS: 36415; 80053; 82550; 85027; 85651; 86140

== ENCOUNTER → 2017-07-23 | Outpatient (CLI) | payer MEDICARE, MEDICAID ==
[2017-07-23 16:58] LABS: HEMOGLOBIN 10.1 g/dL (12.0-15.0); MEAN CELL HGB 23.1 pg (26-34); MEAN CELL HGB CONCENTRATION 29.2 g/dL (33-37); MEAN CORP VOLUME 79.2 fL (78-100); MEAN PLATELET VOLUME 10.5 fL (7.8-11.0); RED CELL DISTRIBUTION WIDTH 15.5 % (11.5-14.5); WHITE BLOOD CELL 11.2 10^3/uL (4.5-11.0)
[2017-07-23 17:28] LABS: CALCIUM 9.2 mg/dL (8.4-10.5); CARBON DIOXIDE 30.6 mmol/L (20.0-32)
== END | disposition home or self-care (01) ==
LOC: NPLAB 16:38
PROVIDERS: ATTEND Internal Medicine Infectious Disease
DX: T81.4XXA Infection following a procedure, initial encounter (principal); A49.02 Methicillin resistant Staphylococcus aureus infection, unspecified site
CPT/HCPCS: 80053; 82550; 85027; 85651; 86140

== ENCOUNTER 2017-07-25 15:18 | Emergency (ER) | payer MEDICARE, MEDICAID ==
[~2017-07-25] VITALS: Ht 154.9 cm; Wt 72.6 kg
[2017-07-25 15:28] VITALS: BP 105/39
[2017-07-25] MEDS ORDERED: ZOFRAN IV STA (16:02)
[2017-07-25] MEDS ORDERED: NS 1000ML 1,000 ML STA (16:02)
--- NOTE | 2017-07-25 16:08 | PCM.EKG ---
[facility] Test Date: 2017-07-25 Test Time: 16:07:01 Pat Name: DARYN CHUA Department: Room: Gender: F Skull Chopper: RT : 1945 Requested By: ANA CONSTANTINO Order Number: [id number] Reading MD: Measurements Intervals [place] Rate: 77 P: 66 [place]: 158 QRS: -15 QRSD: 76 T: 88 QT: 446 QTc: 504 Interpretive Statements Normal sinus rhythm Prolonged QT Abnormal ECG Compared to ECG 04/18/2017 13:10:23 Prolonged QT interval now present Please click the below link to view image of tracing.
--- NOTE | 2017-07-25 16:10 | ER.PDOC ---
ANA CONSTANTINO DO 07/25/17 1610: General Chief Complaint: Dizziness Stated Complaint: DIZZY Time seen by MD: 15:44 Source: patient, family Exam Limitations: no limitations History of Present Illness Initial Comments Generalized not feeling well. Light headed, malaise, nausea. No fever, cough, pain. Severity/Quality: moderate Associated Symptoms (vomiting): mild vomiting (1 episode.) Allergies: Coded Allergies: butorphanol (Verified Allergy, Severe, 01/22/17) pentazocine (Verified Allergy, Severe, 01/22/17) codeine (Verified Adverse Reaction, Intermediate, GI UPSET, 03/15/17) Home Meds Active Scripts Doxycycline Hyclate (DOXYCYCLINE HYCLATE) 100 Mg Capsule, 100 MG PO BID for 5 Days, #10 CAP Prov:KULWIDNER PAYNE MD 04/16/17 Varenicline Tartrate (CHANTIX) 1 Each Tab.ds.pk, 1 EACH PO BID for 30 Days, 0 Refills DIRECTED IN STARTER CONVENIENCE PACK. Prov:MARIAM CUNNINGHAM APRN, NP 02/23/17 Ticagrelor (BRILINTA) 90 Mg Tablet, 90 MG PO BID for PCI, #180 TABLET 4 Refills Prov:MARIAM CUNNINGHAM APRN, NP 02/23/17 Reported Medications Clopidogrel Bisulfate (PLAVIX) 75 Mg Tablet, 75 MG PO DAILY, TABLET 03/15/17 Insulin Detemir (LEVEMIR) 100 Unit/1 Ml Vial, 60 UNIT SQ HS, VIAL 02/20/17 Tramadol Hcl (TRAMADOL HCL) 50 Mg Tablet, 50 MG PO BID, TABLET 01/22/17 Lorazepam (LORAZEPAM) 1 Mg Tablet, 1 MG PO TID, TABLET 01/22/17 Isosorbide Mononitrate (ISOSORBIDE MONONITRATE ER) 30 Mg Tab.er.24h, 30 MG PO DAILY 01/22/17 Acetaminophen (ACETAMINOPHEN) 500 Mg Tablet, 500 MG PO HS, TABLET 01/22/17 Cholecalciferol (Vitamin D3) (VITAMIN D3) 5,000 Unit Tablet, 1 UNIT PO DAILY, TABLET 01/22/17 B Complex with Vitamin C (B-Complex with C) 1 Each Tablet, 1 EACH PO DAILY, TABLET 01/22/17 Zolpidem Tartrate (ZOLPIDEM TARTRATE) 10 Mg Tablet, 10 MG PO HS, TABLET 01/22/17 Ipratropium/Albuterol Sulfate (IPRAT-ALBUT 0.5-3(2.5) MG/3 ML) 3 Ml Ampul.neb, 3 ML IH 10/19/14 Fluticasone/Vilanterol (Breo Ellipta 100-25 Mcg INH) 1 Each Aer.pow.ba, 1 EACH IH Y for SHORTNESS OF BREATH 10/19/14 Arformoterol Tartrate (BROVANA) 15 Mcg/2 Ml Vial.neb, 15 MCG IH 10/19/14 Gabapentin (NEURONTIN) 300 Mg Capsule, 400 MG PO QID, #90 CAP 3 Refills 05/06/14 Pravastatin Sodium (PRAVASTATIN SODIUM) 40 Mg Tablet, 40 MG PO HS, TABLET 05/04/14 Metoprolol Tartrate (LOPRESSER 100MG) 100 Mg Tablet, 100 MG PO DAILY for HYPERTENSION, #60 TAB 05/04/14 Duloxetine Hcl (CYMBALTA) 60 Mg Capsule.dr, 60 MG PO DAILY 05/04/14 Insulin Aspart (NOVOLOG) 100 Unit/1 Ml Insuln.pen, 15 UNIT SQ TID 05/04/14 Ramipril 2.5MG (ALTACE 2.5MG) 2.5 Mg Capsule, 2.5 MG PO DAILY, CAPSULE 05/04/14 Carbidopa/Levodopa (CARBIDOPA-LEVO ER 25-100 TAB) 1 Each Tablet.er, 1 EACH PO QID 05/04/14 Lorazepam (LORAZEPAM) 1 Mg Tablet, 1 MG PO BID, TABLET 05/04/14 Budesonide (BUDESONIDE) 0.5 Mg/2 Ml Ampul.neb, 0.5 MG IH BID 05/04/14 Vital Signs First Vital Signs Date Time Temp Pulse Resp B/P (MAP) Pulse Ox O2 Delivery O2 Flow Rate FiO2 07/25/17 15:22 98.4 76 20 98 07/25/17 15:28 105/39 (61) Nasal Cannula Last Vital Signs Date Time Temp Pulse Resp B/P (MAP) Pulse Ox O2 Delivery O2 Flow Rate FiO2 07/25/17 15:28 98.4 76 20 105/39 (61) 98 Nasal Cannula Past Medical History Medical History: cardiac problems, diabetes, hypertension Surgical History: appendectomy, cholecystectomy, hysterectomy, tonsillectomy LMP (females 10-50): hysterectomy Social History Smoking: non-smoker Alcohol Use: occassionally Drug Use: Hydrocodone Constitutional: see HPI, chills, malaise, weakness EENTM: no symptoms reported Respiratory: no symptoms reported Cardiovascular: no symptoms reported Gastrointestinal: see HPI Genitourinary: no symptoms reported Musculoskeletal: no symptoms reported Skin: no symptoms reported Psychiatric/Neurological: no symptoms reported Endocrine: no symptoms reported Hematologic/Lymphatic: no symptoms reported All Other Systems: Reviewed and Negative Physical Exam General Appearance: No Apparent Distress, Lethargic HEENT: PERRL/EOMI, Normal ENT Inspection Neck: Non-Tender, Full Range of Motion, Supple Respiratory: chest non-tender, lungs clear, normal breath sounds Cardiovascular: Normal Peripheral Pulses, Regular Rate, Rhythm, No Edema Gastrointestinal: Normal Bowel Sounds, No Organomegaly, Non Tender, Soft Back: Normal Inspection, No CVA Tenderness, No Vertebral Tenderness Extremities: Normal Range of Motion, Non-Tender, Normal Inspection Neurologic/Psychiatric: sleever II-XII NML as Tested, No Motor/Sensory Deficits, Alert, Normal Mood/Affect, Oriented x 3 Skin: Normal Color, Warm/Dry Lymphatic: No Adenopathy Results/Orders Results/Orders Laboratory Tests Test 07/25/17 16:17 White Blood Count 10.7 10^3/uL (4.5-11.0) Red Blood Count 4.12 10^6/uL (4.00-5.20) Hemoglobin 9.6 g/dL (12.0-15.0) Hematocrit 32.2 % (36.0-46.0) Mean Corpuscular Volume 78.2 fL (78-100) Mean Corpuscular Hemoglobin 23.3 pg (26-34) Mean Corpuscular Hemoglobin Concent 29.8 g/dL (33-37) Red Cell Distribution Width 15.4 % (11.5-14.5) Platelet Count 287 10^3/uL (150-400) Mean Platelet Volume 9.7 fL (7.8-11.0) Neutrophils (%) (Auto) 49.7 % (41.0-85.0) Lymphocytes (%) (Auto) 35.4 % (24.0-44.0) Monocytes (%) (Auto) 9.7 % (5.0-12.0) Neutrophils # (Auto) 5.3 10^3/uL (1.8-7.7) Lymphocytes # (Auto) 3.8 10^3/uL (1.0-4.8) Monocytes # (Auto) 1.0 10^3/uL (0.3-0.8) Absolute Immature Granulocyte (auto 0.01 10^3 u/L (0-2) Eosinophils % 4.6 % (0.0-5.0) Basophils % 0.5 % (0.0-0.2) Basophils # 0.1 10^3/uL (0.0-0.1) Eosinophil Count 0.5 10^3/uL (0.0-0.2) Sodium Level 138 mmol/L (132-145) Potassium Level 3.8 mmol/L (3.6-5.2) Chloride Level 101.0 mmol/L (96-109) Carbon Dioxide Level 33.1 mmol/L (20.0-32) Anion Gap 7.7 Blood Urea Nitrogen 10 mg/dL (7-18) Creatinine 1.16 mg/dL (0.59-1.40) Estimated GFR () 55.4 (>/=60) BUN/Creatinine Ratio 8.0 Glucose Level 126 mg/dL (70-110) Calcium Level 9.1 mg/dL (8.4-10.5) Total Bilirubin 0.3 mg/dL (0.2-1.0) Aspartate Amino Transf (AST/SGOT) 20 U/L (0-35) Alanine Aminotransferase (ALT/SGPT) 5 U/L (12-78) Alkaline Phosphatase 94 U/L (50-136) Troponin I < 0.02 ng/mL (0.00-0.05) Total Protein 7.3 g/dL (6.4-8.2) Albumin 2.7 g/dL (3.4-5.0) Globulin 4.6 Percent Immature Gran (Cell Imm) 0.10 % (0.00-0.50) Administered Medications Medications (Trade) Dose Ordered Sig/Romulo Route PRN Reason Start Time Stop Time Status Last Admin Dose Admin Sodium Chloride 1,000 ml @ 1,200 mls/hr Q50M STAT IV 07/25/17 16:02 07/25/17 16:51 DC 07/25/17 16:20 Ondansetron HCl (Zofran) 4 mg STAT STAT IV 07/25/17 16:02 07/25/17 16:06 DC 07/25/17 16:20 Progress Progress Care transferred to Dr. Burks at 1900. CXR, flu screen and UA all pending. Departure Disposition: HOME, SELF-CARE Impression: Primary Impression: Volume depletion Additional Impression: Urinary tract infection Qualified Codes: N39.0 - Urinary tract infection, site not specified Condition: Stable Referrals: JAVIER GRIFFITH MD (PCP) PRIMARY CARE PROVIDER MAXIM BURKS MD 07/25/17 2014: General Chief Complaint: Dizziness Stated Complaint: DIZZY History of Present Illness Allergies: Coded Allergies: butorphanol (Verified Allergy, Severe, 01/22/17) pentazocine (Verified Allergy, Severe, 01/22/17) codeine (Verified Adverse Reaction, Intermediate, GI UPSET, 03/15/17) Home Meds Active Scripts Doxycycline Hyclate (DOXYCYCLINE HYCLATE) 100 Mg Capsule, 100 MG PO BID for 5 Days, #10 CAP Prov:KULWINDER PAYNE MD 04/16/17 Varenicline Tartrate (CHANTIX) 1 Each Tab.ds.pk, 1 EACH PO BID for 30 Days, 0 Refills DIRECTED IN STARTER CONVENIENCE PACK. Prov:MARIAM CUNNINGHAM APRN, NP 02/23/17 Ticagrelor (BRILINTA) 90 Mg Tablet, 90 MG PO BID for PCI, #180 TABLET 4 Refills Prov:MARIAM CUNNINGHAM APRN, NP 02/23/17 Reported Medications Clopidogrel Bisulfate (PLAVIX) 75 Mg Tablet, 75 MG PO DAILY, TABLET 03/15/17 Insulin Detemir (LEVEMIR) 100 Unit/1 Ml Vial, 60 UNIT SQ HS, VIAL 02/20/17 Tramadol Hcl (TRAMADOL HCL) 50 Mg Tablet, 50 MG PO BID, TABLET 01/22/17 Lorazepam (LORAZEPAM) 1 Mg Tablet, 1 MG PO TID, TABLET 01/22/17 Isosorbide Mononitrate (ISOSORBIDE MONONITRATE ER) 30 Mg Tab.er.24h, 30 MG PO DAILY 01/22/17 Acetaminophen (ACETAMINOPHEN) 500 Mg Tablet, 500 MG PO HS, TABLET 01/22/17 Cholecalciferol (Vitamin D3) (VITAMIN D3) 5,000 Unit Tablet, 1 UNIT PO DAILY, TABLET 01/22/17 B Complex with Vitamin C (B-Complex with C) 1 Each Tablet, 1 EACH PO DAILY, TABLET 01/22/17 Zolpidem Tartrate (ZOLPIDEM TARTRATE) 10 Mg Tablet, 10 MG PO HS, TABLET 01/22/17 Ipratropium/Albuterol Sulfate (IPRAT-ALBUT 0.5-3(2.5) MG/3 ML) 3 Ml Ampul.neb, 3 ML IH 10/19/14 Fluticasone/Vilanterol (Breo Ellipta 100-25 Mcg INH) 1 Each Aer.pow.ba, 1 EACH IH Y for SHORTNESS OF BREATH 10/19/14 Arformoterol Tartrate (BROVANA) 15 Mcg/2 Ml Vial.neb, 15 MCG IH 10/19/14 Gabapentin (NEURONTIN) 300 Mg Capsule, 400 MG PO QID, #90 CAP 3 Refills 05/06/14 Pravastatin Sodium (PRAVASTATIN SODIUM) 40 Mg Tablet, 40 MG PO HS, TABLET 05/04/14 Metoprolol Tartrate (LOPRESSER 100MG) 100 Mg Tablet, 100 MG PO DAILY for HYPERTENSION, #60 TAB 05/04/14 Duloxetine Hcl (CYMBALTA) 60 Mg Capsule.dr, 60 MG PO DAILY 05/04/14 Insulin Aspart (NOVOLOG) 100 Unit/1 Ml Insuln.pen, 15 UNIT SQ TID 05/04/14 Ramipril 2.5MG (ALTACE 2.5MG) 2.5 Mg Capsule, 2.5 MG PO DAILY, CAPSULE 05/04/14 Carbidopa/Levodopa (CARBIDOPA-LEVO ER 25-100 TAB) 1 Each Tablet.er, 1 EACH PO QID 05/04/14 Lorazepam (LORAZEPAM) 1 Mg Tablet, 1 MG PO BID, TABLET 05/04/14 Budesonide (BUDESONIDE) 0.5 Mg/2 Ml Ampul.neb, 0.5 MG IH BID 05/04/14 Vital Signs First Vital Signs Date Time Temp Pulse Resp B/P (MAP) Pulse Ox O2 Delivery O2 Flow Rate FiO2 07/25/17 15:22 98.4 76 20 98 07/25/17 15:28 105/39 (61) Nasal Cannula Last Vital Signs Date Time Temp Pulse Resp B/P (MAP) Pulse Ox O2 Delivery O2 Flow Rate FiO2 07/25/17 19:30 72 18 144/68 (93) 98 Room Air 07/25/17 15:28 98.4 Results/Orders Results/Orders Laboratory Tests Test 07/25/17 16:17 07/25/17 18:24 07/25/17 19:33 White Blood Count 10.7 10^3/uL (4.5-11.0) Red Blood Count 4.12 10^6/uL (4.00-5.20) Hemoglobin 9.6 g/dL (12.0-15.0) Hematocrit 32.2 % (36.0-46.0) Mean Corpuscular Volume 78.2 fL (78-100) Mean Corpuscular Hemoglobin 23.3 pg (26-34) Mean Corpuscular Hemoglobin Concent 29.8 g/dL (33-37) Red Cell Distribution Width 15.4 % (11.5-14.5) Platelet Count 287 10^3/uL (150-400) Mean Platelet Volume 9.7 fL (7.8-11.0) Neutrophils (%) (Auto) 49.7 % (41.0-85.0) Lymphocytes (%) (Auto) 35.4 % (24.0-44.0) Monocytes (%) (Auto) 9.7 % (5.0-12.0) Neutrophils # (Auto) 5.3 10^3/uL (1.8-7.7) Lymphocytes # (Auto) 3.8 10^3/uL (1.0-4.8) Monocytes # (Auto) 1.0 10^3/uL (0.3-0.8) Absolute Immature Granulocyte (auto 0.01 10^3 u/L (0-2) Eosinophils % 4.6 % (0.0-5.0) Basophils % 0.5 % (0.0-0.2) Basophils # 0.1 10^3/uL (0.0-0.1) Eosinophil Count 0.5 10^3/uL (0.0-0.2) Sodium Level 138 mmol/L (132-145) Potassium Level 3.8 mmol/L (3.6-5.2) Chloride Level 101.0 mmol/L (96-109) Carbon Dioxide Level 33.1 mmol/L (20.0-32) Anion Gap 7.7 Blood Urea Nitrogen 10 mg/dL (7-18) Creatinine 1.16 mg/dL (0.59-1.40) Estimated GFR () 55.4 (>/=60) BUN/Creatinine Ratio 8.0 Glucose Level 126 mg/dL (70-110) Calcium Level 9.1 mg/dL (8.4-10.5) Total Bilirubin 0.3 mg/dL (0.2-1.0) Aspartate Amino Transf (AST/SGOT) 20 U/L (0-35) Alanine Aminotransferase (ALT/SGPT) 5 U/L (12-78) Alkaline Phosphatase 94 U/L (50-136) Troponin I < 0.02 ng/mL (0.00-0.05) Total Protein 7.3 g/dL (6.4-8.2) Albumin 2.7 g/dL (3.4-5.0) Globulin 4.6 Percent Immature Gran (Cell Imm) 0.10 % (0.00-0.50) Influenza Virus Type A Antibody NEGATIVE (NEG) Influenza Virus Type B Antibody NEGATIVE (NEG) Urine Collection Type VOID Urine Color YELLOW (YELLOW) Urine Appearance CLOUDY (CLEAR) Urine Bilirubin NEGATIVE MG/DL (NEGATIVE) Urine Ketones NEGATIVE (NEGATIVE) Urine Specific [place] 1.010 (1.005-1.035) Urine pH 6 (5.0-6.0) Urine Protein 100 mg/dL (NEGATIVE) Urine Urobilinogen NORMAL (NEGATIVE) Urine Nitrate NEGATIVE (NEGATIVE) Urine Leukocyte Esterase 100/ul 1+ (NEGATIVE) Urine Blood 25 1+ (NEGATIVE) Urine RBC 0-2 RBC/HPF (NONE SEEN) Urine WBC 2-5 WBC/HPF (0-2) Urine Squamous Epithelial Cells MANY #/HPF (FEW) Urine Amorphous Sediment LARGE (NONE SEEN) Urine Bacteria FEW (NONE SEEN) Urine Hyaline Casts 0-1 (NONE SEEN) Urine Glucose 50 (NEGATIVE) Administered Medications Medications (Trade) Dose Ordered Sig/Romulo Route PRN Reason Start Time Stop Time Status Last Admin Dose Admin Sodium Chloride 1,000 ml @ 1,200 mls/hr Q50M STAT IV 07/25/17 16:02 07/25/17 16:51 DC 07/25/17 16:20 Ondansetron HCl (Zofran) 4 mg STAT STAT IV 07/25/17 16:02 07/25/17 16:06 DC 07/25/17 16:20 Departure Time of Disposition: 20:12 Disposition: 01 HOME, SELF-CARE Impression: Primary Impression: Volume depletion Additional Impression: Urinary tract infection Qualified Codes: N39.0 - Urinary tract infection, site not specified Condition: Stable Referrals: JAVIER GRIFFITH MD (PCP) PRIMARY CARE PROVIDER Duration or Time Spent with Pa: 25 ANA CONSTANTINO DO Jul 25, 2017 16:10 MAXIM BURKS MD Jul 25, 2017 20:14
[2017-07-25] MEDS ORDERED: ZOFRAN ONE (16:12)
[2017-07-25] MEDS ORDERED: NS 1000ML 1,000 ML ONE (16:12)
[2017-07-25 16:23] LABS: BASOPHIL # 0.1 10^3/uL (0.0-0.1); BASOPHIL % 0.5 % (0.0-0.2); EOSINOPHIL # 0.5 10^3/uL (0.0-0.2); EOSINOPHIL % 4.6 % (0.0-5.0); HEMOGLOBIN 9.6 g/dL (12.0-15.0); LYMPHOCYTES # 3.8 10^3/uL (1.0-4.8); LYMPHOCYTES % 35.4 % (24.0-44.0); MEAN CELL HGB 23.3 pg (26-34); MEAN CELL HGB CONCENTRATION 29.8 g/dL (33-37); MEAN CORP VOLUME 78.2 fL (78-100); MEAN PLATELET VOLUME 9.7 fL (7.8-11.0); MONOCYTES % 9.7 % (5.0-12.0); NEUTROPHIL # 5.3 10^3/uL (1.8-7.7); NEUTROPHILS % 49.7 % (41.0-85.0); RED CELL DISTRIBUTION WIDTH 15.4 % (11.5-14.5); WHITE BLOOD CELL 10.7 10^3/uL (4.5-11.0)
[2017-07-25 16:30] VITALS: BP 100/42
--- NOTE | 2017-07-25 16:33 | NUR ---
ER DID ORTHOSTATIC HYPOTENSON TEST
[2017-07-25 16:47] LABS: ALKALINE PHOSPHATASE 94 U/L (50-136); ASPARTATE AMINO TRANSFERASE 20 U/L (0-35); CALCIUM 9.1 mg/dL (8.4-10.5); CARBON DIOXIDE 33.1 mmol/L (20.0-32); GLUCOSE 126 mg/dL (70-110)
[2017-07-25 16:48] LABS: ALANINE AMINOTRANSFERASE(ML) 5 U/L (12-78)
[2017-07-25 17:30] VITALS: BP 106/41
[2017-07-25 18:30] VITALS: BP 136/62
[2017-07-25 19:30] VITALS: BP 144/68
[2017-07-25 19:37] LABS: BILIRUBIN,URINE NEGATIVE (NEGATIVE); UROBILINOGEN,URINE NORMAL (NEGATIVE)
[2017-07-25 19:49] LABS: APPEARANCE,URINE CLOUDY (CLEAR); UA COLOR YELLOW (YELLOW)
[2017-07-25 20:27] VITALS: BP 144/68
== END 2017-07-25 20:25 | disposition home or self-care (01) ==
LOC: ER 15:18 → EDBD 15:18 → ER 20:25
DX: N39.0 Urinary tract infection, site not specified (principal); E86.9 Volume depletion, unspecified; R42 Dizziness and giddiness; E11.9 Type 2 diabetes mellitus without complications; I10 Essential (primary) hypertension; Z79.4 Long term (current) use of insulin; Z88.5 Allergy status to narcotic agent; Z90.49 Acquired absence of other specified parts of digestive tract; Z90.710 Acquired absence of both cervix and uterus; Z88.8 Allergy status to other drugs, medicaments and biological substances
CPT/HCPCS: 36415; 80053; 81000; 84484; 85025; 86710; 87077; 87086; 87186 ×3; 93005; 96361; 96374; 99285; J2405; J7030

== ENCOUNTER → 2017-07-30 | Outpatient (CLI) | payer MEDICARE, MEDICAID ==
[2017-07-30 16:55] LABS: HEMOGLOBIN 9.4 g/dL (12.0-15.0); MEAN CELL HGB CONCENTRATION 29.6 g/dL (33-37); MEAN CORP VOLUME 77.9 fL (78-100); MEAN PLATELET VOLUME 10.4 fL (7.8-11.0); RED CELL DISTRIBUTION WIDTH 15.5 % (11.5-14.5); WHITE BLOOD CELL 10.4 10^3/uL (4.5-11.0)
[2017-07-30 17:22] LABS: CALCIUM 8.7 mg/dL (8.4-10.5); CARBON DIOXIDE 30.8 mmol/L (20.0-32)
== END | disposition home or self-care (01) ==
LOC: NPLAB 16:29
PROVIDERS: ATTEND Internal Medicine Infectious Disease
DX: T81.4XXA Infection following a procedure, initial encounter (principal); A49.02 Methicillin resistant Staphylococcus aureus infection, unspecified site
CPT/HCPCS: 80053; 82550; 85027; 85651; 86140

== ENCOUNTER 2017-08-06 19:56 | Observation (INO) | payer MEDICARE, MEDICAID ==
[~2017-08-06] VITALS: Ht 162.6 cm; Wt 73.1 kg
--- NOTE | 2017-08-06 20:02 | NUR ---
ARRIVAL PATIENT TO ROOM 2 VIA EMS, AWAITING DAUGHTER FOR PATIENT QUESTIONS. PATIENT UNABLE TO ANSWER QUESTIONS EFFECTIVELY.
--- NOTE | 2017-08-06 20:03 | PCM.EKG ---
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
--- NOTE | 2017-08-06 20:05 | ER.PDOC ---
General Chief Complaint: Chest Pain-Cardiac Nature Stated Complaint: CHEST PAIN Time seen by MD: 20:04 Source: EMS Exam Limitations: no limitations History of Present Illness Timing/Duration: 1 hour Severity/Quality: mild Activities at Onset: none Prior CP/Workup: Other (71 yo chronically debilitated appearing female presents to basic EMS with CP, confusion) Nitro Today/Relief: No Nitro Taken Today Aspirin Today: No Aspirin Today Associated Symptoms: denies symptoms Allergies: Coded Allergies: butorphanol (Verified Allergy, Severe, 01/22/17) pentazocine (Verified Allergy, Severe, 01/22/17) codeine (Verified Adverse Reaction, Intermediate, GI UPSET, 03/15/17) Home Meds Active Scripts Doxycycline Hyclate (DOXYCYCLINE HYCLATE) 100 Mg Capsule, 100 MG PO BID for 5 Days, #10 CAP Prov:KULWINDER PAYNE MD 04/16/17 Varenicline Tartrate (CHANTIX) 1 Each Tab.ds.pk, 1 EACH PO BID for 30 Days, 0 Refills DIRECTED IN STARTER CONVENIENCE PACK. Prov:MARIAM CUNNINGHAM APRN, NP 02/23/17 Ticagrelor (BRILINTA) 90 Mg Tablet, 90 MG PO BID for PCI, #180 TABLET 4 Refills Prov:MARIAM CUNNINGHAM APRN, NP 02/23/17 Reported Medications Clopidogrel Bisulfate (PLAVIX) 75 Mg Tablet, 75 MG PO DAILY, TABLET 03/15/17 Insulin Detemir (LEVEMIR) 100 Unit/1 Ml Vial, 60 UNIT SQ HS, VIAL 02/20/17 Tramadol Hcl (TRAMADOL HCL) 50 Mg Tablet, 50 MG PO BID, TABLET 01/22/17 Lorazepam (LORAZEPAM) 1 Mg Tablet, 1 MG PO TID, TABLET 01/22/17 Isosorbide Mononitrate (ISOSORBIDE MONONITRATE ER) 30 Mg Tab.er.24h, 30 MG PO DAILY 01/22/17 Acetaminophen (ACETAMINOPHEN) 500 Mg Tablet, 500 MG PO HS, TABLET 01/22/17 Cholecalciferol (Vitamin D3) (VITAMIN D3) 5,000 Unit Tablet, 1 UNIT PO DAILY, TABLET 01/22/17 B Complex with Vitamin C (B-Complex with C) 1 Each Tablet, 1 EACH PO DAILY, TABLET 01/22/17 Zolpidem Tartrate (ZOLPIDEM TARTRATE) 10 Mg Tablet, 10 MG PO HS, TABLET 01/22/17 Ipratropium/Albuterol Sulfate (IPRAT-ALBUT 0.5-3(2.5) MG/3 ML) 3 Ml Ampul.neb, 3 ML IH 10/19/14 Fluticasone/Vilanterol (Breo Ellipta 100-25 Mcg INH) 1 Each Aer.pow.ba, 1 EACH IH Y for SHORTNESS OF BREATH 10/19/14 Arformoterol Tartrate (BROVANA) 15 Mcg/2 Ml Vial.neb, 15 MCG IH 10/19/14 Gabapentin (NEURONTIN) 300 Mg Capsule, 400 MG PO QID, #90 CAP 3 Refills 05/06/14 Pravastatin Sodium (PRAVASTATIN SODIUM) 40 Mg Tablet, 40 MG PO HS, TABLET 05/04/14 Metoprolol Tartrate (LOPRESSER 100MG) 100 Mg Tablet, 100 MG PO DAILY for HYPERTENSION, #60 TAB 05/04/14 Duloxetine Hcl (CYMBALTA) 60 Mg Capsule.dr, 60 MG PO DAILY 05/04/14 Insulin Aspart (NOVOLOG) 100 Unit/1 Ml Insuln.pen, 15 UNIT SQ TID 05/04/14 Ramipril 2.5MG (ALTACE 2.5MG) 2.5 Mg Capsule, 2.5 MG PO DAILY, CAPSULE 05/04/14 Carbidopa/Levodopa (CARBIDOPA-LEVO ER 25-100 TAB) 1 Each Tablet.er, 1 EACH PO QID 05/04/14 Lorazepam (LORAZEPAM) 1 Mg Tablet, 1 MG PO BID, TABLET 05/04/14 Budesonide (BUDESONIDE) 0.5 Mg/2 Ml Ampul.neb, 0.5 MG IH BID 05/04/14 Past Medical History Medical History: CVA/TIA/stroke, congestive heart failure, COPD, hypertension, other (parkinson's disease) Surgical History: appendectomy, hysterectomy, tonsillectomy LMP (females 10-50): hysterectomy Social History Smoking: non-smoker Alcohol Use: none Drug Use: none All Other Systems: Reviewed and Negative Physical Exam General Appearance: No Apparent Distress, Other (frail, intermittently confused female, talking to nurses) Respiratory: chest non-tender, lungs clear Cardiovascular: Normal Peripheral Pulses Gastrointestinal: Normal Bowel Sounds Extremities: Normal Range of Motion, Non-Tender Neurologic/Psychiatric: 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 CT head : atrophy, no bleed. Lactate 1.5 (sl high). pH: 7.49 (sl high). Departure Time of Disposition: 02:42 Disposition: 09 ADMITTED INPATIENT Impression: Primary Impression: Rhabdomyolysis Condition: Stable Referrals: JAVIER GRIFFITH MD (PCP) PRIMARY CARE PROVIDER Duration or Time Spent with Pa: 20 Problem Qualifiers Primary Impression: Rhabdomyolysis Rhabdomyolysis type: traumatic Encounter type: initial encounter Qualified Codes: T79.6XXA - Traumatic ischemia of muscle, initial encounter LAURA BUTCHER MD Aug 06, 2017 20:05
[2017-08-06 20:16] LABS: BASOPHIL % 0.2 % (0.0-0.2); EOSINOPHIL # 1.2 10^3/uL (0.0-0.2); EOSINOPHIL % 8.2 % (0.0-5.0); LYMPHOCYTES # 3.9 10^3/uL (1.0-4.8); LYMPHOCYTES % 26.9 % (24.0-44.0); MEAN CELL HGB 23.6 pg (26-34); MEAN CELL HGB CONCENTRATION 30.8 g/dL (33-37); MEAN CORP VOLUME 76.8 fL (78-100); MEAN PLATELET VOLUME 9.8 fL (7.8-11.0); MONOCYTES # 1.5 10^3/uL (0.3-0.8); MONOCYTES % 10.6 % (5.0-12.0); NEUTROPHIL # 7.8 10^3/uL (1.8-7.7); NEUTROPHILS % 53.9 % (41.0-85.0); RED CELL DISTRIBUTION WIDTH 15.9 % (11.5-14.5); WHITE BLOOD CELL 14.4 10^3/uL (4.5-11.0)
--- NOTE | 2017-08-06 20:20 | NUR ---
CT PATIENT TO CT.
[2017-08-06 20:31] VITALS: BP 152/85
--- NOTE | 2017-08-06 20:35 | NUR ---
BACK IN ROOM PATIENT BACK FROM CT
[2017-08-06 20:51] LABS: ABG PCO2 35.5 mmHg (35.0-45.0); ABG PH 7.493 (7.350-7.450); BE(B) 3.4 mmol/L (-2.0-2.0); HCO3act 26.6 mmol/L (22.0-26.0); pO2 104.3 mmHg (75.0-100.0)
[2017-08-06 20:58] VITALS: BP 174/88
--- NOTE | 2017-08-06 21:00 | DIREP ---
PROCEDURE:CT HEAD OR BRAIN W/O CONTRAST COMPARISON:[facility], CT, CT HEAD BRAIN W/O CONTRAST, 04/13/2017, 02:49 PM. INDICATIONS:new confusion TECHNIQUE:CT images were created without intravenous contrast. FINDINGS: VENTRICLES:No hydrocephalus or midline shift. CEREBRUM:Moderate enlargement of the cerebral sulci and fissures. Multiple areas of decreased density in the deep white matter of each hemisphere. CEREBELLUM:Negative. BRAINSTEM:Negative. BASAL CISTERNS:Negative. SKULL:Normal. No fractures. SINUSES:Normal. OTHER:No acute intracranial hemorrhage, large territorial infarct, abnormal extra-axial fluid collection, or CT evidence of acute cortical infarct. Calcification of the intracranial portions of both internal carotid . CONCLUSION: 1. Intracranial arterial calcification, moderate age-related cerebral volume loss, and mild leukoariosis. 2. No acute pathology on noncontrast CT of the head. No significant change from the prior exam. Dictated by: Jose Haywood M.D. on 08/06/2017 at 08:57 PM
--- NOTE | 2017-08-06 21:05 | DIREP ---
PROCEDURE:CHEST 1 VIEW COMPARISON:[facility], CR, XRAY CHEST 2 VWS, 07/13/2015, 01:32 PM. [facility], CR, XRAY CHEST SINGLE VW, 04/18/2017, 11:52 AM. INDICATIONS:CP FINDINGS: LUNGS/PLEURA:Stable mild interstitial prominence of the bilateral lung markings. No airspace consolidation or pleural effusion. VASCULATURE:Normal. Unremarkable pulmonary vasculature. CARDIAC:Normal. No cardiac silhouette abnormality or cardiomegaly. MEDIASTINUM:Normal. No visible mass or adenopathy. BONES:No acute pathology degenerative changes are noted in both shoulders. OTHER:Left arm PICC line with tip in lower portion of SVC. CONCLUSION: 1. Findings suggestive of mild chronic pulmonary interstitial fibrosis, unchanged from prior exams. 2. There is a left arm PICC line noted. Dictated by: Jose Haywood M.D. on 08/06/2017 at 09:03 PM
[2017-08-06 21:09] LABS: ALKALINE PHOSPHATASE 102 U/L (50-136); ASPARTATE AMINO TRANSFERASE 51 U/L (0-35); CALCIUM 9.1 mg/dL (8.4-10.5); CARBON DIOXIDE 28.9 mmol/L (20.0-32); GLUCOSE 211 mg/dL (70-110)
[2017-08-06 21:18] LABS: ALANINE AMINOTRANSFERASE(ML) 4 U/L (12-78)
[2017-08-06 21:21] LABS: BILIRUBIN,URINE NEGATIVE (NEGATIVE); UROBILINOGEN,URINE NORMAL (NEGATIVE)
[2017-08-06 21:31] LABS: APPEARANCE,URINE CLEAR (CLEAR); UA COLOR YELLOW (YELLOW); WBC,URINE 0-2 WBC/HPF (0-2)
[2017-08-06] MEDS ORDERED: NS 1000ML 1,000 ML ONE (21:40)
[2017-08-06] MEDS ORDERED: NS 1000ML 1,000 ML IV ONE ×2 (22:00→22:30)
--- NOTE | 2017-08-06 22:00 | NUR ---
PIC LINE PATIENT HAS A PIC LINE
--- NOTE | 2017-08-06 22:19 | NUR ---
DR MOOK BUTCHER ON THE PHONE WITH DR DELVALLE AT THIS TIME.
[2017-08-06 22:27] VITALS: BP 155/67
--- NOTE | 2017-08-06 22:39 | PCM.EKG ---
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
[2017-08-06 23:15] VITALS: BP 167/67
--- NOTE | 2017-08-07 00:24 | NUR ---
Patient resting in bed with eyes closed. Resp even and non labored. nasal canula in place. Will continue to monitor. Call light within reach.
[2017-08-07] MEDS: ULTRAM PO SCH ×3 (00:34→09:00)
[2017-08-07 02:09] VITALS: BP 129/55
--- NOTE | 2017-08-07 02:50 | NUR ---
Patient resting in bed with eyes closed. Resp even and non labored. No s/s of distress noted at this time. Will continue to monitor. Call light within reach.
[2017-08-07 05:58] VITALS: BP 124/55
[2017-08-07 07:30] VITALS: BP 143/69
[2017-08-07] MEDS ORDERED: NORCO 7.5MG PO PRN (08:30)
[2017-08-07 08:33] LABS: BASOPHIL % 0.3 % (0.0-0.2); EOSINOPHIL # 1.4 10^3/uL (0.0-0.2); EOSINOPHIL % 11.6 % (0.0-5.0); HEMOGLOBIN 9.4 g/dL (12.0-15.0); LYMPHOCYTES # 2.8 10^3/uL (1.0-4.8); LYMPHOCYTES % 24.3 % (24.0-44.0); MEAN CELL HGB 23.5 pg (26-34); MEAN CELL HGB CONCENTRATION 30.5 g/dL (33-37); MEAN PLATELET VOLUME 9.6 fL (7.8-11.0); MONOCYTES # 1.5 10^3/uL (0.3-0.8); MONOCYTES % 12.5 % (5.0-12.0); NEUTROPHIL # 5.9 10^3/uL (1.8-7.7); RED CELL DISTRIBUTION WIDTH 15.8 % (11.5-14.5); WHITE BLOOD CELL 11.6 10^3/uL (4.5-11.0)
[2017-08-07 08:45] LABS: CALCIUM 8.7 mg/dL (8.4-10.5); CARBON DIOXIDE 29.5 mmol/L (20.0-32)
[2017-08-07] MEDS ORDERED: PLAVIX PO SCH (09:00)
[2017-08-07] MEDS ORDERED: NEURONTIN PO SCH (09:00)
[2017-08-07] MEDS ORDERED: CYMBALTA PO SCH (09:00)
[2017-08-07] MEDS ORDERED: DUONEB 0.5 MG-3 MG/3 ML SOLN IH PRN (09:00)
[2017-08-07] MEDS ORDERED: VITAMIN D PO SCH (09:00)
[2017-08-07] MEDS ORDERED: SINEMET 25/100 PO SCH (09:00)
[2017-08-07] MEDS ORDERED: ATIVAN PO SCH (09:00)
[2017-08-07] MEDS ORDERED: ALTACE PO SCH (09:00)
[2017-08-07] MEDS ORDERED: BRILINTA PO SCH (09:00)
[2017-08-07] MEDS ORDERED: PULMICORT IH SCH (09:00)
[2017-08-07] MEDS ORDERED: IMDUR PO SCH (09:00)
--- NOTE | 2017-08-07 10:11 | PRM.DC ---
Discharge Summary Date of Discharge: Aug 07, 2017 Reason for Visit: Chest pain Patient History: Alzheimer's disease G8 SISTER, , Age:63 Asthma 19 CHILD 19 CHILD Cerebrovascular disorder G8 SISTER, , Age:60 years and older Diabetes mellitus G8 BROTHER, , Age:79 19 CHILD 19 CHILD FH: Parkinson's disease G8 BROTHER, , Age:52 Hypertension 32 MOTHER, , Age:74 33 FATHER, , Age:74 G8 BROTHER, , Age:79 G8 BROTHER, , Age:52 G8 SISTER, , Age:60 years and older 19 CHILD No Family History of: Chronic obstructive pulmonary disease Congestive heart failure Diabetes insipidus Parkinson's disease History Present Illness: (1) Chest pain Status: Resolved ICD Code: R07.9 - Chest pain, unspecified SNOMED: 56924448 Assessment & Plan: Continue current cardiac medications Follow up with Cardiology 1-2 weeks (2) Chronic obstructive pulmonary disease SEVERITY: MODERATE PERSISTENT Status: Chronic ICD Code: J44.9 - Chronic obstructive pulmonary disease, unspecified SNOMED: 84077509 Assessment & Plan: Continue current pulmonary medications (3) CAD (coronary artery disease) Onset Date: ~ 02/2015 SEVERITY: MILD PERSISTENT Status: Chronic ICD Code: I25.10 - CAD (coronary artery disease) SNOMED: 14470108 Assessment & Plan: Continue cardiac medications General: Alert, Oriented X3, Cooperative, No acute distress HEENT: PERRLA, EOMI Neck: Supple, No JVD, Other (open wound right neck without signs of infection) Lungs: Clear to auscultation, Normal air movement Heart: Regular rate, Normal S1, Normal S2 Abdomen: Normal bowel sounds, Soft Extremities: No clubbing, No cyanosis, No edema Skin: No rashes Neuro: Normal speech, Strength at 5/5 X4 ext, Cranial nerves 3-12 NL Psych/Mental Status: Mood NL Results(Labs/Rad) Laboratory Tests Test 08/06/17 00:00 08/06/17 20:15 08/06/17 20:41 08/07/17 04:48 Urine Collection Type UNKNOWN Urine Color YELLOW Urine Appearance CLEAR Urine Bilirubin NEGATIVE MG/DL Urine Ketones 5 mg/dL Urine Specific [place] 1.020 Urine pH 5 Urine Protein 100 mg/dL Urine Urobilinogen NORMAL Urine Nitrate NEGATIVE Urine Leukocyte Esterase NEGATIVE Urine Blood 25 1+ Urine RBC 0-2 RBC/HPF Urine WBC 0-2 WBC/HPF Urine Squamous Epithelial Cells NONE SEEN #/HPF Urine Bacteria NONE SEEN Urine Hyaline Casts 2-5 Urine Glucose NORMAL White Blood Count 14.4 10^3/uL Red Blood Count 4.23 10^6/uL Hemoglobin 10.0 g/dL Hematocrit 32.5 % Mean Corpuscular Volume 76.8 fL Mean Corpuscular Hemoglobin 23.6 pg Mean Corpuscular Hemoglobin Concent 30.8 g/dL Red Cell Distribution Width 15.9 % Platelet Count 331 10^3/uL Mean Platelet Volume 9.8 fL Neutrophils (%) (Auto) 53.9 % Lymphocytes (%) (Auto) 26.9 % Monocytes (%) (Auto) 10.6 % Neutrophils # (Auto) 7.8 10^3/uL Lymphocytes # (Auto) 3.9 10^3/uL Monocytes # (Auto) 1.5 10^3/uL Absolute Immature Granulocyte (auto 0.03 10^3 u/L Eosinophils % 8.2 % Basophils % 0.2 % Basophils # 0.0 10^3/uL Eosinophil Count 1.2 10^3/uL Prothrombin Time 10.8 SEC Prothrombin Time INR (Non-Therap) 1.1 Activated Partial Thromboplast Time 35.8 SEC D-Dimer 0.81 mg/L Sodium Level 129 mmol/L Potassium Level 4.1 mmol/L Chloride Level 92.0 mmol/L Carbon Dioxide Level 28.9 mmol/L Anion Gap 12.2 Blood Urea Nitrogen 19 mg/dL Creatinine 1.22 mg/dL Estimated GFR () 52.3 BUN/Creatinine Ratio 15.0 Glucose Level 211 mg/dL Calcium Level 9.1 mg/dL Total Bilirubin 0.4 mg/dL Aspartate Amino Transf (AST/SGOT) 51 U/L Alanine Aminotransferase (ALT/SGPT) 4 U/L Alkaline Phosphatase 102 U/L Total Creatine Kinase 1236 U/L 781 U/L Creatine Kinase MB 3.2 ng/mL 1.0 ng/mL Troponin I < 0.02 ng/mL < 0.02 ng/mL Pro-B-Type Natriuretic Peptide 149 pg/mL Total Protein 7.9 g/dL Albumin 2.8 g/dL Globulin 5.1 Percent Immature Gran (Cell Imm) 0.20 % Helicobacter pylori Screen NEGATIVE Blood Gas Sample Site RT RADIAL ARTERY Blood Gas pH 7.493 Blood Gas PCO2 35.5 mmHg Blood Gas PO2 104.3 mmHg Blood Gas HCO3 26.6 mmol/L Blood Gas Base Excess 3.4 mmol/L Red Test POSITIVE Arterial Blood Oxygen Saturation 98.0 % Deoxyhemoglobin 2.0 % Carboxyhemoglobin 1.2 % Methemoglobin 0.1 % Total Hemoglobin 11.3 % Total Oxygen Concentration 15.5 % Lactic Acid (Blood Gas) 1.5 MMOL/L Oxygen Delivery Method (LAB) NASAL CANNULA FiO2 28 % Bicarbonate 27.7 mmol/L Test 08/07/17 08:27 White Blood Count 11.6 10^3/uL Red Blood Count 4.00 10^6/uL Hemoglobin 9.4 g/dL Hematocrit 30.8 % Mean Corpuscular Volume 77.0 fL Mean Corpuscular Hemoglobin 23.5 pg Mean Corpuscular Hemoglobin Concent 30.5 g/dL Red Cell Distribution Width 15.8 % Platelet Count 308 10^3/uL Mean Platelet Volume 9.6 fL Neutrophils (%) (Auto) 51.0 % Lymphocytes (%) (Auto) 24.3 % Monocytes (%) (Auto) 12.5 % Neutrophils # (Auto) 5.9 10^3/uL Lymphocytes # (Auto) 2.8 10^3/uL Monocytes # (Auto) 1.5 10^3/uL Absolute Immature Granulocyte (auto 0.04 10^3 u/L Eosinophils % 11.6 % Basophils % 0.3 % Basophils # 0.0 10^3/uL Eosinophil Count 1.4 10^3/uL Sodium Level 131 mmol/L Potassium Level 4.2 mmol/L Chloride Level 96.0 mmol/L Carbon Dioxide Level 29.5 mmol/L Glucose Level 360 mg/dL Blood Urea Nitrogen 16 mg/dL Creatinine 1.09 mg/dL Calcium Level 8.7 mg/dL Anion Gap 9.7 Estimated GFR () 59.5 BUN/Creatinine Ratio 14.0 Percent Immature Gran (Cell Imm) 0.30 % Scheduled Acetaminophen (Acetaminophen), 500 MG PO HS, (Reported) B Complex with Vitamin C (B-Complex with C), 1 EACH PO DAILY, (Reported) Budesonide (Budesonide), 0.5 MG IH BID, (Reported) Carbidopa/Levodopa (Carbidopa-Levo Er 25-100 Tab), 1 EACH PO QID, (Reported) Cholecalciferol (Vitamin D3) (Vitamin D3), 1 UNIT PO DAILY, (Reported) Clopidogrel Bisulfate (Plavix), 75 MG PO DAILY, (Reported) Doxycycline Hyclate (Doxycycline Hyclate), 100 MG PO BID Duloxetine Hcl (Cymbalta), 60 MG PO DAILY, (Reported) Gabapentin (Neurontin), 400 MG PO QID, (Reported) Insulin Aspart (Novolog), 15 UNIT SQ TID, (Reported) Insulin Detemir (Levemir), 60 UNIT SQ HS, (Reported) Isosorbide Mononitrate (Isosorbide Mononitrate Er), 30 MG PO DAILY, (Reported) Lorazepam (Lorazepam), 1 MG PO BID, (Reported) Lorazepam (Lorazepam), 1 MG PO TID, (Reported) Metoprolol Tartrate (Lopresser 100MG), 100 MG PO DAILY, (Reported) Pravastatin Sodium (Pravastatin Sodium), 40 MG PO HS, (Reported) Ramipril 2.5MG (Altace 2.5MG), 2.5 MG PO DAILY, (Reported) Ticagrelor (Brilinta), 90 MG PO BID Tramadol Hcl (Tramadol Hcl), 50 MG PO BID, (Reported) Varenicline Tartrate (Chantix), 1 EACH PO BID Zolpidem Tartrate (Zolpidem Tartrate), 10 MG PO HS, (Reported) Scheduled PRN Fluticasone/Vilanterol (Breo Ellipta 100-25 Mcg INH), 1 EACH IH for SHORTNESS OF BREATH, (Reported) Miscellaneous Medications Arformoterol Tartrate (Brovana), 15 MCG IH, (Reported) Ipratropium/Albuterol Sulfate (Iprat-Albut 0.5-3(2.5) Mg/3 Ml), 3 ML IH, ( Reported) Sepsis Evaluation @ Discharge Course Blood Pressure Systolic: 143 Blood Pressure Diastolic: 69 Blood Pressure Mean: 93 Notes see dictated H&P Plan Discharge Date: Aug 07, 2017 Dicharge DX: 1. Chest pain, 2. Chronic MRSA infection, 3. CAD, 4. COPD Discharge Disposition: Stable Plan Resume previous medications including outpatient IV Cubicin Follow up with PCP and Cardiology next available appointment Diet and activity as tolerated Discharge plans discussed with patient, she is her own decision maker and does understand and concur with plans Time spent on discharge 25 minutes Problem Qualifiers (1) Chest pain: Chest pain type: precordial pain Qualified Codes: R07.2 - Precordial pain (2) Chronic obstructive pulmonary disease: COPD type: chronic bronchitis (3) CAD (coronary artery disease): Coronary Disease-Associated Artery/Lesion type: elem artery [place] vs. transplanted heart: elem heart KULWINDER PAYNE MD Aug 07, 2017 10:11
[2017-08-07 11:20] VITALS: BP 143/69
--- NOTE | 2017-08-07 11:20 | NUR ---
DISCHARGE PT DISCHARGED AT THIS TIME. PT LEAVES FLOOR VIA WHEELCHAIR TO PRIVATE VEHICLE ACCOMPANIED BY DAUGHTER. PT UNDERSTANDS FOLLOW UP INSTRUCTIONS. PT DENIES ANY OTHER QUESTIONS OR CONCERNS AT THIS TIME.
--- NOTE | 2017-08-07 12:51 | HPH ---
ADMIT DATE: 08/07/2017 CHIEF COMPLAINT: Mild chest pain. HISTORY OF PRESENT ILLNESS: The patient is a 71-year-old woman with past medical history significant for COPD, coronary artery disease, peripheral vascular disease, diabetes mellitus type 2, tobacco abuse, chronic pain with opiate dependence, anxiety disorder with benzodiazepine dependence and hyperlipidemia. She presented to ER with 1 hour complaint of mild chest pain. The pain was primarily in the epigastric region. She was recently seen by Cardiovascular Surgery, had a right carotid endarterectomy with a chronic open wound currently. She is on outpatient IV Cubicin therapy for this with wound care at home. She is on home oxygen most of the time. She states she is not currently smoking, but has a significant smoking history. She does have a history of both opiate and benzodiazepine dependence. There were no signs of cardiac etiology for her chest pain. She is on numerous medications including long acting nitrate for cardiac etiology chest pain. There have been no other new changes. PAST MEDICAL HISTORY: Includes diabetes mellitus type 2, hypertension, coronary artery disease, COPD, tobacco abuse, chronic pain with opiate dependence, chronic anxiety with benzodiazepine dependence, hyperlipidemia and peripheral vascular disease. PAST SURGICAL HISTORY: She had appendectomy, hysterectomy, knee surgery, tonsillectomy, PTCA with stents placed. She is status post right carotid endarterectomy recently by CV surgery in [place]. ALLERGIES: ALLERGIC TO BUTORPHANOL, CODEINE AND PENTAZOCINE. HOME MEDICATIONS: List is extensive and includes she was given IV daptomycin therapy daily at home, Tylenol daily, Brovana 15 mcg inhaled daily, vitamin B complex daily, Pulmicort 0.5 mg twice a day, Sinemet 25/100 mg 4 times a day, vitamin D daily, Plavix 75 mg daily, Cymbalta 60 mg daily, Breo Ellipta as needed, gabapentin 400 mg 4 times a day, NovoLog insulin premeal, Levemir 60 units at night, DuoNebs as needed, Imdur 30 mg daily, lorazepam 1 mg twice a day, it is also written 3 times a day, metoprolol 100 mg daily, pravastatin 40 mg at night, ramipril 2.5 mg daily, Brilinta 90 mg b.i.d., tramadol scheduled, Chantix reportedly taken recently and Ambien at night. SOCIAL HISTORY: She does live at home on home oxygen. She does have tobacco use history. Denies illicit drug use, alcohol use history. FAMILY HISTORY: Negative for early coronary artery disease or diabetes. REVIEW OF SYSTEMS: CARDIAC: She complains of chest pain, some shortness of breath, which is chronic dyspnea on exertion, which is chronic. PULMONARY: She denies cough, sputum production or pleuritic chest pain. GASTROINTESTINAL: No nausea, vomiting, diarrhea or constipation. All else negative in 10 point review of system except as in HPI. PHYSICAL EXAMINATION: VITAL SIGNS: Upon arrival, height 162.5 cm, weight 73 kilograms. Temperature 98.3, pulse 89, respiratory rate is 18, blood pressure 152/85 and O2 saturation 97% on room air. GENERAL: She is chronically ill-appearing lady, but in no acute distress. HEENT: Pupils equal, round, reactive to light. Sclerae are anicteric. Oropharynx is clear. Mucous membranes are moist. NECK: Supple, no lymphadenopathy. She has an open wound in the right carotid region with no drainage or signs of infection. CARDIOVASCULAR: At time of exam was regular rate and rhythm. LUNGS: Clear bilaterally. No wheezing. ABDOMEN: Soft. Bowel sounds are present, nontender to palpation. EXTREMITIES: No cyanosis, clubbing or significant edema. NEUROLOGIC: Grossly nonfocal. INITIAL LABORATORY DATA: Sodium 129, potassium 4.1, chloride 92, CO2 is 29, BUN 19, creatinine 1.2, glucose 211, calcium is 9.1, total bilirubin 0.4, AST 51, ALT is 4, alkaline phosphatase is 102, total CK is 1236, CK-MB is 3.2, troponin I is less than 0.02, proBNP is 149, total protein 7.9, albumin 2.8. CBC: White count 14.4, hemoglobin 10.0, platelets 331. Differential: 54% neutrophils, 27% lymphocytes, 10% monocytes. PT of 10.8, PTT is 35.8. Initial blood gas, pH is 7.49, pCO2 is 35, pO2 is 104, base excess is 3.4, lactate of 1.5. IMAGING STUDIES: CT head was negative acute process. Chest x-ray, some chronic fibrosis, left arm PICC line. ASSESSMENT AND PLAN: The patient is a 71-year-old woman here with a mild rhabdomyolysis with noncardiac chest pain with recent right carotid endarterectomy with open wound and multiple other medical problems. 1. We will continue her cardiovascular medications. 2. Continue COPD medications. 3. She is on IV daptomycin, which is not on our formulary. She is clinically doing well. Her labs have already improved. We will discharge home to follow up with home health to continue IV daptomycin therapy. DISCHARGE DIAGNOSIS: Mild rhabdomyolysis. OTHER DIAGNOSES: Includes coronary artery disease, COPD, tobacco abuse, chronic pain with opiate dependence, anxiety with benzodiazepine dependence, open wound on the right neck postsurgical after carotid endarterectomy. DISCHARGE MEDICATIONS: Resume her previous medications including IV daptomycin at home with home health. DISPOSITION: Discharged on home oxygen. DISCHARGE DIET AND ACTIVITY: As tolerated. Discharge plans were discussed with the patient. She is her own decision maker. She does understand and concur with plans. Time spent on history and physical is 45 minutes. Terrence Valerio MD DR: KRISTEL/winnie JOB# [id number]
[2017-08-07 15:37] LABS: DIFFERENTIAL COMMENT NORMAL; EOSINOPHIL 10 % (1-4); LYMPHOCYTE 32 % (25-36); MONOCYTE 8 % (3-9); SEGMENTED NEUTROPHILS 50 % (31-76)
[2017-08-07] MEDS ORDERED: TYLENOL PO SCH (21:00)
[2017-08-07] MEDS ORDERED: ZOCOR PO SCH (21:00)
[2017-08-07] MEDS ORDERED: AMBIEN PO SCH (21:00)
[2017-08-07] MEDS ORDERED: LANTUS SQ SCH (21:00)
== END 2017-08-07 11:20 | disposition home health service (06) ==
LOC: ER 19:56 → EDBD 19:56 → MS 22:28 → INTOOBSV 22:28
PROVIDERS: ADMIT Pediatrics; ATTEND Internal Medicine
DX: R07.2 Precordial pain (principal); E78.5 Hyperlipidemia, unspecified; E11.9 Type 2 diabetes mellitus without complications; F11.20 Opioid dependence, uncomplicated; F41.9 Anxiety disorder, unspecified; G20 Parkinson's disease; G89.29 Other chronic pain; I11.0 Hypertensive heart disease with heart failure; I50.9 Heart failure, unspecified; I25.10 Atherosclerotic heart disease of native coronary artery without angina pectoris; J44.9 Chronic obstructive pulmonary disease, unspecified; T79.6XXA Traumatic ischemia of muscle, initial encounter; I73.9 Peripheral vascular disease, unspecified; F13.20 Sedative, hypnotic or anxiolytic dependence, uncomplicated; Z90.710 Acquired absence of both cervix and uterus; Z86.73 Personal history of transient ischemic attack (TIA), and cerebral infarction without residual deficits; Z98.890 Other specified postprocedural states; Z88.8 Allergy status to other drugs, medicaments and biological substances; Z79.899 Other long term (current) drug therapy; Z87.891 Personal history of nicotine dependence
CPT/HCPCS: 36415 ×2; 36600; 70450; 71045; 80048; 80053; 81000; 82550 ×2; 82553 ×2; 82803; 82948; 83880; 84484 ×2; 85025 ×2; 85379; 85610; 85651; 85730; 86677; 87040 ×2; 87086; 93005 ×2; 94640; 99285; G0378 ×13; J7030; J7627; J8499

== ENCOUNTER → 2017-08-06 | Outpatient (CLI) | payer MEDICARE, MEDICAID | END | disposition home or self-care (01) | LOC: LAB 10:45 | PROVIDERS: ATTEND Internal Medicine | DX: T81.4XXA Infection following a procedure, initial encounter (principal); A49.02 Methicillin resistant Staphylococcus aureus infection, unspecified site; X58.XXXA Exposure to other specified factors, initial encounter; Y93.89 Activity, other specified; Y92.89 Other specified places as the place of occurrence of the external cause; Y99.8 Other external cause status | CPT/HCPCS: 36415; 82550; 86140 ==

== ENCOUNTER → 2017-08-06 | Outpatient (CLI) | payer MEDICARE, MEDICAID ==
[2017-08-06 12:54] LABS: CALCIUM 9.3 mg/dL (8.4-10.5); CARBON DIOXIDE 32.8 mmol/L (20.0-32)
[2017-08-06 13:41] LABS: BASOPHIL % 0.3 % (0.0-0.2); EOSINOPHIL # 1.6 10^3/uL (0.0-0.2); EOSINOPHIL % 11.7 % (0.0-5.0); LYMPHOCYTES # 2.9 10^3/uL (1.0-4.8); LYMPHOCYTES % 21.9 % (24.0-44.0); MEAN CELL HGB CONCENTRATION 31.1 g/dL (33-37); MEAN CORP VOLUME 77.4 fL (78-100); MEAN PLATELET VOLUME 10.5 fL (7.8-11.0); MONOCYTES # 1.5 10^3/uL (0.3-0.8); MONOCYTES % 11.1 % (5.0-12.0); NEUTROPHIL # 7.3 10^3/uL (1.8-7.7); NEUTROPHILS % 54.7 % (41.0-85.0); WHITE BLOOD CELL 13.3 10^3/uL (4.5-11.0)
== END | disposition home or self-care (01) ==
LOC: LAB 10:45
PROVIDERS: ATTEND Internal Medicine
DX: E11.22 Type 2 diabetes mellitus with diabetic chronic kidney disease (principal); N18.2 Chronic kidney disease, stage 2 (mild); D63.1 Anemia in chronic kidney disease
CPT/HCPCS: 80069; 80076; 82150; 83036; 83690; 84443; 85025; 85651

== ENCOUNTER 2017-08-12 14:51 | Emergency (ER) | payer MEDICARE, MEDICAID ==
[~2017-08-12] VITALS: Ht 160 cm; Wt 66.7 kg
[2017-08-12 15:04] VITALS: BP 147/68
--- NOTE | 2017-08-12 15:10 | NUR ---
ARRIVAL PATIENT STATES THAT SHE FELL LAST NIGHT AND HER SHOULDER IS HURTING TODAY, COMPLAINTS OF PAIN IN RIGHT SHOULDER UPON ARRIVAL, PAIN THEN IN LEFT SHOULDER.
--- NOTE | 2017-08-12 15:19 | ER.PDOC ---
General Chief Complaint: Trauma Stated Complaint: FALL Time seen by MD: 16:00 Source: patient, family History of Present Illness Occurred: yesterday Where: home Severity: mild Injuries/Pain Location: upper extremity, back Allergies: Coded Allergies: butorphanol (Verified Allergy, Severe, 01/22/17) pentazocine (Verified Allergy, Severe, 01/22/17) codeine (Verified Adverse Reaction, Intermediate, GI UPSET, 03/15/17) MEDS Active Scripts Varenicline Tartrate (CHANTIX) 1 Each Tab.ds.pk, 1 EACH PO BID for 30 Days, 0 Refills DIRECTED IN STARTER CONVENIENCE PACK. Prov:MARIAM CUNNINGHAM APRN,NGOZI 02/23/17 Ticagrelor (BRILINTA) 90 Mg Tablet, 90 MG PO BID for PCI, #180 TABLET 4 Refills Prov:MARIAM CUNNINGHAM APRN,NGOZI 02/23/17 Reported Medications Clopidogrel Bisulfate (PLAVIX) 75 Mg Tablet, 75 MG PO DAILY, TABLET 03/15/17 Insulin Detemir (LEVEMIR) 100 Unit/1 Ml Vial, 60 UNIT SQ HS, VIAL 02/20/17 Tramadol Hcl (TRAMADOL HCL) 50 Mg Tablet, 50 MG PO BID, TABLET 01/22/17 Lorazepam (LORAZEPAM) 1 Mg Tablet, 1 MG PO TID, TABLET 01/22/17 Isosorbide Mononitrate (ISOSORBIDE MONONITRATE ER) 30 Mg Tab.er.24h, 30 MG PO DAILY 01/22/17 Acetaminophen (ACETAMINOPHEN) 500 Mg Tablet, 500 MG PO HS, TABLET 01/22/17 Cholecalciferol (Vitamin D3) (VITAMIN D3) 5,000 Unit Tablet, 1 UNIT PO DAILY, TABLET 01/22/17 B Complex with Vitamin C (B-Complex with C) 1 Each Tablet, 1 EACH PO DAILY, TABLET 01/22/17 Zolpidem Tartrate (ZOLPIDEM TARTRATE) 10 Mg Tablet, 10 MG PO HS, TABLET 01/22/17 Ipratropium/Albuterol Sulfate (IPRAT-ALBUT 0.5-3(2.5) MG/3 ML) 3 Ml Ampul.neb, 3 ML IH 10/19/14 Fluticasone/Vilanterol (Breo Ellipta 100-25 Mcg INH) 1 Each Aer.pow.ba, 1 EACH IH Y for SHORTNESS OF BREATH 10/19/14 Arformoterol Tartrate (BROVANA) 15 Mcg/2 Ml Vial.neb, 15 MCG IH 10/19/14 Gabapentin (NEURONTIN) 300 Mg Capsule, 400 MG PO QID, #90 CAP 3 Refills 05/06/14 Pravastatin Sodium (PRAVASTATIN SODIUM) 40 Mg Tablet, 40 MG PO HS, TABLET 05/04/14 Metoprolol Tartrate (LOPRESSER 100MG) 100 Mg Tablet, 100 MG PO DAILY for HYPERTENSION, #60 TAB 05/04/14 Duloxetine Hcl (CYMBALTA) 60 Mg Capsule.dr, 60 MG PO DAILY 05/04/14 Insulin Aspart (NOVOLOG) 100 Unit/1 Ml Insuln.pen, 15 UNIT SQ TID 05/04/14 Ramipril 2.5MG (ALTACE 2.5MG) 2.5 Mg Capsule, 2.5 MG PO DAILY, CAPSULE 05/04/14 Carbidopa/Levodopa (CARBIDOPA-LEVO ER 25-100 TAB) 1 Each Tablet.er, 1 EACH PO QID 05/04/14 Lorazepam (LORAZEPAM) 1 Mg Tablet, 1 MG PO BID, TABLET 05/04/14 Budesonide (BUDESONIDE) 0.5 Mg/2 Ml Ampul.neb, 0.5 MG IH BID 05/04/14 Discontinued Scripts Doxycycline Hyclate (DOXYCYCLINE HYCLATE) 100 Mg Capsule, 100 MG PO BID for 5 Days, #10 CAP Prov:KULWINDER PAYNE MD 04/16/17 Past Medical History Medical History: cardiac problems, congestive heart failure, COPD, diabetes, hypertension Surgical History: appendectomy, cholecystectomy, , hysterectomy, tonsillectomy LMP (females 10-50): hysterectomy Social History Smoking: non-smoker Alcohol Use: none Drug Use: none Review of Systems All Other Systems: Reviewed and Negative Physical Exam Head: No Evidence of Injury Ears, Nose, Mouth, Throat: Hearing Grossly Normal, No Evidence of ENT Injury, No Dental Injury Neck: Non-Tender, Normal Alignment, Nexus criteria neg, Normal Inspection Cardiovascular/Respiratory: Regular Rate, Rhythm, No M/R/G, Normal Peripheral Pulses, No JVD, Normal Breath Sounds, No Respiratory Distress Gastrointestinal: Normal Bowel Sounds, No Organomegaly, No Pulsatile Mass, Non Tender, Soft Back: Vertebral Tenderness (L1-3) Extremities: Other (MILD R SHOULDER TENDERNESS) 1 - MILD TENDER, FULL ROM 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, No Motor/Sensory Deficits, Alert, Normal Mood/Affect, Oriented x 3 Skin: Normal Color, Warm/Dry [place] Coma Score [place] Total: 15 Results/Orders Results/Orders Laboratory Tests Test 08/12/17 15:30 08/12/17 16:22 White Blood Count 14.4 10^3/uL (4.5-11.0) Red Blood Count 4.09 10^6/uL (4.00-5.20) Hemoglobin 9.4 g/dL (12.0-15.0) Hematocrit 31.3 % (36.0-46.0) Mean Corpuscular Volume 76.5 fL (78-100) Mean Corpuscular Hemoglobin 23.0 pg (26-34) Mean Corpuscular Hemoglobin Concent 30.0 g/dL (33-37) Red Cell Distribution Width 16.0 % (11.5-14.5) Platelet Count 381 10^3/uL (150-400) Mean Platelet Volume 9.3 fL (7.8-11.0) Sodium Level 133 mmol/L (132-145) Potassium Level 4.1 mmol/L (3.6-5.2) Chloride Level 96.0 mmol/L (96-109) Carbon Dioxide Level 33.1 mmol/L (20.0-32) Anion Gap 8.0 Blood Urea Nitrogen 14 mg/dL (7-18) Creatinine 1.04 mg/dL (0.59-1.40) Estimated GFR () 62.9 (>/=60) BUN/Creatinine Ratio 13.0 Glucose Level 211 mg/dL (70-110) Calcium Level 8.9 mg/dL (8.4-10.5) Total Bilirubin 0.3 mg/dL (0.2-1.0) Aspartate Amino Transf (AST/SGOT) 17 U/L (0-35) Alanine Aminotransferase (ALT/SGPT) 7 U/L (12-78) Alkaline Phosphatase 92 U/L (50-136) Total Protein 7.3 g/dL (6.4-8.2) Albumin 2.3 g/dL (3.4-5.0) Globulin 5.0 Influenza Type A Antigen NEGATIVE (NEG) Influenza B Immunofluorescence NEGATIVE (NEG) Departure Time of Disposition: 17:33 Disposition: 01 HOME, SELF-CARE Impression: Primary Impression: Contusion Condition: Stable Referrals: JAVIER GRIFFITH MD (PCP) PRIMARY CARE PROVIDER Comments PLACEMENT FOR REHAB Duration or Time Spent with Pa: 2 HRS THI ALEXIS MD Aug 12, 2017 15:18
[2017-08-12 15:35] LABS: HEMOGLOBIN 9.4 g/dL (12.0-15.0); MEAN CORP VOLUME 76.5 fL (78-100); MEAN PLATELET VOLUME 9.3 fL (7.8-11.0); WHITE BLOOD CELL 14.4 10^3/uL (4.5-11.0)
--- NOTE | 2017-08-12 15:44 | DIREP ---
PROCEDURE:XRAY SPINE LUMBAR 2-3 VWS COMPARISON:[facility], , XRAY SPINE LUMBAR MIN 4 VWS, 04/23/2017, 03:44 PM. INDICATIONS:FALL TECHNIQUE:AP, lateral, and coned down lateral views of the lumbar spine are provided. FINDINGS: ALIGNMENT:Normal. VERTEBRAE:Hypertrophic changes at the intervertebral disc margins with osteophytes, ventral, at all lumbar levels. No compression fractures. Mild facet arthropathy DISK SPACES:Narrowing L5-S1. SPONDYLOLISTHESIS:None. SACROILIAC JOINTS:Normal. OTHER:Extensive atherosclerotic calcifications in the distal abdominal aorta. Bilateral common iliac stents CONCLUSION:Hypertrophic changes intervertebral disc margins. Mild facet arthropathy. No compression fractures. Vasculopathy. Dictated by: Latanya Morales MD on 08/12/2017 at 03:41 PM
[2017-08-12] MEDS ORDERED: TORADOL IM STA (15:45)
--- NOTE | 2017-08-12 15:46 | DIREP ---
PROCEDURE:XRAY SHOULDER MIN 2 VWS-RT COMPARISON:[facility], , XRAY CHEST SINGLE VW, 08/06/2017, 08:07 PM. INDICATIONS:FALL FINDINGS: BONES:Normal. JOINTS:Normal glenohumeral and acromioclavicular joints. No evidence for dislocation. SOFT TISSUES:Prominent interstitial pattern in the lungs. No pneumothorax detected OTHER:Normal. CONCLUSION:Normal internal and external rotation. No fracture. Possible lung disease. Dictated by: Latanya Morales MD on 08/12/2017 at 03:44 PM
--- NOTE | 2017-08-12 15:47 | DIREP ---
PROCEDURE:CHEST 1 VIEW COMPARISON:[facility], CR, XRAY CHEST SINGLE VW, 08/06/2017, 08:07 PM. [facility], CR, XRAY CHEST SINGLE VW, 04/18/2017, 11:52 AM. INDICATIONS:FEVER FINDINGS: LUNGS/PLEURA:Diffuse interstitial prominence. Subtle upper lobe preponderance based on this exam VASCULATURE:Normal. Unremarkable pulmonary vasculature. CARDIAC:No change in heart size. MEDIASTINUM:PICC line left, tip in the superior vena cava BONES:Normal. No fracture or visible bony lesion. OTHER:Negative. CONCLUSION:Interstitial prominence both lungs. PICC line. No change. Dictated by: Latanya Morales MD on 08/12/2017 at 03:45 PM
[2017-08-12 15:52] LABS: CALCIUM 8.9 mg/dL (8.4-10.5); CARBON DIOXIDE 33.1 mmol/L (20.0-32)
[2017-08-12] MEDS ORDERED: SUBLIMAZE IV STA (15:58)
[2017-08-12 16:05] VITALS: BP 134/87
[2017-08-12] MEDS ORDERED: NORCO 10MG PO ONE ×2 (16:48→17:45)
[2017-08-12] MEDS ORDERED: NORCO 10MG PO PRN (17:00)
--- NOTE | 2017-08-12 17:04 | NUR ---
Peter Malcolm notifed for need of social service consult. No answer. Voicemail left.
[2017-08-12 17:34] VITALS: BP 120/78
--- NOTE | 2017-08-12 18:04 | NUR ---
FENTYL NON ADMINISTERED, NORCO GIVEN INSTEAD.
[2017-08-12 18:07] VITALS: BP 120/78
--- NOTE | 2017-08-13 08:40 | NUR ---
FOLLOW UP: SS FOLLOWED UP WITH PT'S DAUGHTER JACLYN JUAREZ REGARDING PT. [facility] FOR [facility]. SS EDUCATED PT'S DAUGHTER REGARDING MEDICARE GUIDE LINES AND FOR PT TO QUALIFY TO GO TO SNF PER MEDICARE SHE WOULD HAVE TO HAVE A THREE MIDNIGHT QUALIFYING STAY IN THE HOSPITAL. SS EDUCATED PT'S DAUGHTER ON ALL AVAILABLE OPTIONS. SS LET PT KNOW SHE COULD STILL GO TO A SENIOR LIVING, BUT IT WOULD BE ALF AND SHE WOULD ONLY GET GOAL DIRECTED THERAPY, OR SS COULD CALL HH AND SEE IF THEY COULD SET HER UP ON THERAPY, OR SHE COULD ALSO SEE IF SHE COULD BE A CANDIDATE FOR [facility]RA. PT'S DAUGHTER STATED SHE WOULD PREFER HER STAY HERE AND SINCE SHE CAN'T GO TO [place], SHE WOULD LIKE TO HAVE PHYSICAL THERAPY SET UP THROUGH HER HH. SS REACHED OUT TO MARGY WITH [facility] WHOM STATED THEY WOULD BE ABLE TO MAGNETIZER PT, BUT WOULD NEED AND ORDER. SS REACHED OUT TO DR. GRIFFITH'S OFFICE AND LET THEM KNOW THEY WOULD LIKE TO PICK HER UP FOR PHYSICAL THERAPY. DR. GRIFFITH'S NURSE VISITED WITH PHYSICIAN AND STATED THAT WOULD BE FINE. SS REACHED BACK OUT TO MARGY AND STATED THAT THIS WORKER VISITED WITH PT'S PCP AND HE IS OKAY WITH PHYSICAL THERAPY BEING SET UP AND THEY COULD CALL HIM TO GET THE ORDER SET UP. NO FURTHER SS NEEDS NOTED AT THIS TIME.
== END 2017-08-12 17:53 | disposition home or self-care (01) ==
LOC: EDBD 14:51 → ER 14:51
DX: S40.011A Contusion of right shoulder, initial encounter (principal); S30.0XXA Contusion of lower back and pelvis, initial encounter; E11.9 Type 2 diabetes mellitus without complications; I11.0 Hypertensive heart disease with heart failure; I50.9 Heart failure, unspecified; J44.9 Chronic obstructive pulmonary disease, unspecified; Z79.4 Long term (current) use of insulin; Z88.5 Allergy status to narcotic agent; Z90.49 Acquired absence of other specified parts of digestive tract; Z90.710 Acquired absence of both cervix and uterus; X58.XXXA Exposure to other specified factors, initial encounter; Y93.89 Activity, other specified; Y92.098 Other place in other non-institutional residence as the place of occurrence of the external cause; Y99.8 Other external cause status
CPT/HCPCS: 71045; 72100; 80053; 85027; 86710; 87040; 99285; 73030-RT

== ENCOUNTER → 2017-08-13 | Outpatient (CLI) | payer MEDICARE, MEDICAID ==
[2017-08-13 16:03] LABS: HEMOGLOBIN 9.6 g/dL (12.0-15.0); MEAN CELL HGB 23.1 pg (26-34); MEAN CELL HGB CONCENTRATION 30.2 g/dL (33-37); MEAN CORP VOLUME 76.4 fL (78-100); MEAN PLATELET VOLUME 9.8 fL (7.8-11.0)
[2017-08-13 16:25] LABS: CALCIUM 8.6 mg/dL (8.4-10.5); CARBON DIOXIDE 31.2 mmol/L (20.0-32)
== END | disposition home or self-care (01) ==
LOC: NPLAB 15:50
PROVIDERS: ATTEND Internal Medicine Infectious Disease
DX: T81.4XXA Infection following a procedure, initial encounter (principal); A49.02 Methicillin resistant Staphylococcus aureus infection, unspecified site
CPT/HCPCS: 80053; 82550; 85027; 85651; 86140

== ENCOUNTER → 2017-08-30 | Outpatient (CLI) | payer MEDICARE, MEDICAID ==
--- NOTE | 2017-08-30 16:47 | DIREP ---
PROCEDURE:CAROTID ULTRASOUND COMPARISON:[facility], US, US DOPPLER CAROTID BILATERAL, 04/23/2017, 11:18 AM. INDICATIONS:CAD TECHNIQUE:Sonographic evaluation of carotid and vertebral arteries was performed together with grayscale, color-flow, and spectral analysis. FINDINGS: RIGHT CCA:63.33 cm/s RIGHT BULB:29.40 cm/s RIGHT ICA: PROX:97.91 cm/s MID:83.37 cm/s DIST:83.37 cm/s RIGHT ECA:123.77 cm/s RIGHT ICA/CC:1.43 RIGHT VERTEBRAL:54.85 cm/s IMAGES: The patient has undergone an endarterectomy since 04/23/2017. No significant atherosclerotic disease or stenosis is seen. LEFT CCA:123.77 cm/s LEFT BULB:124.60 cm/s LEFT ICA: PROX:166.10 cm/s MID:210.70 cm/s DIST:177.25 cm/s LEFT ECA:102.99 cm/s LEFT ICA/CCA:1.70 LEFT VERTEBRAL:41.50 cm/s IMAGES:The patient has undergone an endarterectomy since 04/23/2017. Minimal atherosclerotic disease is noted at the origin of the left internal carotid artery. CONCLUSION: 1. No significant stenosis demonstrated following bilateral carotid endarterectomies. Diameter Stenosis (%)ICA Peak Systolic Velocity (cm/s)ICA/CCA RatioNormal<125<2.0<50<125<[id number] to near occlusion>230>4J Ultrasound Med 2005; 24:8345-3188 Dictated by: KERA Physician on 08/30/2017 at 04:07 PM ld
== END | disposition home or self-care (01) ==
LOC: RAD 14:33
PROVIDERS: ATTEND Specialist
DX: I65.23 Occlusion and stenosis of bilateral carotid arteries (principal)
CPT/HCPCS: 93880

== ENCOUNTER 2017-09-01 09:15 | Emergency (ER) | payer MEDICARE, MEDICAID ==
[~2017-09-01] VITALS: Ht 154.9 cm; Wt 70.3 kg
--- NOTE | 2017-09-01 09:34 | ER.PDOC ---
General Chief Complaint: Requesting Medical Care Stated Complaint: WOUND CARE Time seen by MD: 09:34 Source: patient Exam Limitations: no limitations, other (Pt had a surgery to her neck and the wound was infected with MRSA. She finished her antibiotic more than a week ago and now is having minute amount of drainage from it ) History of Present Illness Treated In Another ED/Practice: Yes Allergies: Coded Allergies: butorphanol (Verified Allergy, Severe, 01/22/17) pentazocine (Verified Allergy, Severe, 01/22/17) codeine (Verified Adverse Reaction, Intermediate, GI UPSET, 03/15/17) Home Meds Active Scripts Varenicline Tartrate (CHANTIX) 1 Each Tab.ds.pk, 1 EACH PO BID for 30 Days, 0 Refills DIRECTED IN STARTER CONVENIENCE PACK. Prov:MARIAM CUNNINGHAM APRN, NP 02/23/17 Ticagrelor (BRILINTA) 90 Mg Tablet, 90 MG PO BID for PCI, #180 TABLET 4 Refills Prov:MARIAM CUNNINGHAM APRN, NP 02/23/17 Reported Medications Clopidogrel Bisulfate (PLAVIX) 75 Mg Tablet, 75 MG PO DAILY, TABLET 03/15/17 Insulin Detemir (LEVEMIR) 100 Unit/1 Ml Vial, 60 UNIT SQ HS, VIAL 02/20/17 Tramadol Hcl (TRAMADOL HCL) 50 Mg Tablet, 50 MG PO BID, TABLET 01/22/17 Lorazepam (LORAZEPAM) 1 Mg Tablet, 1 MG PO TID, TABLET 01/22/17 Isosorbide Mononitrate (ISOSORBIDE MONONITRATE ER) 30 Mg Tab.er.24h, 30 MG PO DAILY 01/22/17 Acetaminophen (ACETAMINOPHEN) 500 Mg Tablet, 500 MG PO HS, TABLET 01/22/17 Cholecalciferol (Vitamin D3) (VITAMIN D3) 5,000 Unit Tablet, 1 UNIT PO DAILY, TABLET 01/22/17 B Complex with Vitamin C (B-Complex with C) 1 Each Tablet, 1 EACH PO DAILY, TABLET 01/22/17 Zolpidem Tartrate (ZOLPIDEM TARTRATE) 10 Mg Tablet, 10 MG PO HS, TABLET 01/22/17 Ipratropium/Albuterol Sulfate (IPRAT-ALBUT 0.5-3(2.5) MG/3 ML) 3 Ml Ampul.neb, 3 ML IH 10/19/14 Fluticasone/Vilanterol (Breo Ellipta 100-25 Mcg INH) 1 Each Aer.pow.ba, 1 EACH IH Y for SHORTNESS OF BREATH 10/19/14 Arformoterol Tartrate (BROVANA) 15 Mcg/2 Ml Vial.neb, 15 MCG IH 10/19/14 Gabapentin (NEURONTIN) 300 Mg Capsule, 400 MG PO QID, #90 CAP 3 Refills 05/06/14 Pravastatin Sodium (PRAVASTATIN SODIUM) 40 Mg Tablet, 40 MG PO HS, TABLET 05/04/14 Metoprolol Tartrate (LOPRESSER 100MG) 100 Mg Tablet, 100 MG PO DAILY for HYPERTENSION, #60 TAB 05/04/14 Duloxetine Hcl (CYMBALTA) 60 Mg Capsule.dr, 60 MG PO DAILY 05/04/14 Insulin Aspart (NOVOLOG) 100 Unit/1 Ml Insuln.pen, 15 UNIT SQ TID 05/04/14 Ramipril 2.5MG (ALTACE 2.5MG) 2.5 Mg Capsule, 2.5 MG PO DAILY, CAPSULE 05/04/14 Carbidopa/Levodopa (CARBIDOPA-LEVO ER 25-100 TAB) 1 Each Tablet.er, 1 EACH PO QID 05/04/14 Lorazepam (LORAZEPAM) 1 Mg Tablet, 1 MG PO BID, TABLET 05/04/14 Budesonide (BUDESONIDE) 0.5 Mg/2 Ml Ampul.neb, 0.5 MG IH BID 05/04/14 Past Medical History Surgical History: appendectomy, cholecystectomy, , hysterectomy, tonsillectomy Social History Drug Use: none Constitutional: see HPI Skin: see HPI Physical Exam General Appearance: alert Neuro/Vascular/Tendon: no vascular compromise Skin: healing wound (minute serosanguinous drainage from a well healing wound and no signs of infection ) Head/ENT: nml inspection Neck/Back: nml inspection Respiratory: no resp. distress CVS: reg. rate & rhythm Abdomen: non-tender Departure Time of Disposition: 15:26 Disposition: 01 HOME, SELF-CARE Impression: Primary Impression: Wound infection after surgery Condition: Stable Referrals: JAVIER GRIFFITH MD (PCP) PRIMARY CARE PROVIDER Duration or Time Spent with Pa: 10 GABRIEL SEE MD Sep 01, 2017 09:34
[2017-09-01 09:37] VITALS: BP 168/89
[2017-09-01] MEDS ORDERED: TRIPLE ANTIBIOTIC OINTMENT TP ONE (09:40)
[2017-09-01 10:02] VITALS: BP 168/89
== END 2017-09-01 10:02 | disposition home or self-care (01) ==
LOC: ER 09:15
DX: T81.4XXA Infection following a procedure, initial encounter (principal); Z79.4 Long term (current) use of insulin; Z88.5 Allergy status to narcotic agent; Z90.49 Acquired absence of other specified parts of digestive tract; Z90.710 Acquired absence of both cervix and uterus; Y83.8 Other surgical procedures as the cause of abnormal reaction of the patient, or of later complication, without mention of misadventure at the time of the procedure
CPT/HCPCS: 99281

== ENCOUNTER 2018-01-11 19:14 | Emergency (ER) | payer MEDICARE, MEDICAID ==
[~2018-01-11] VITALS: Ht 154.9 cm; Wt 62.1 kg
[~2018-01-11 19:14] MED LIST changes: -METF10002 PO; +METF10003 PO; -METO100T2 PO; +METO100T7 PO
[2018-01-11 21:03] LABS: BASOPHIL % 0.2 % (0.0-0.2); EOSINOPHIL # 0.3 10^3/uL (0.0-0.2); EOSINOPHIL % 2.4 % (0.0-5.0); HEMOGLOBIN 9.9 g/dL (12.0-15.0); LYMPHOCYTES # 4.6 10^3/uL (1.0-4.8); LYMPHOCYTES % 36.5 % (24.0-44.0); MEAN CELL HGB 28.5 pg (26-34); MEAN CELL HGB CONCENTRATION 33.3 g/dL (33-37); MEAN CORP VOLUME 85.6 fL (78-100); MEAN PLATELET VOLUME 10.5 fL (7.8-11.0); MONOCYTES % 7.6 % (5.0-12.0); NEUTROPHIL # 6.7 10^3/uL (1.8-7.7); NEUTROPHILS % 53.1 % (41.0-85.0); RED CELL DISTRIBUTION WIDTH 14.8 % (11.5-14.5); WHITE BLOOD CELL 12.6 10^3/uL (4.5-11.0)
--- NOTE | 2018-01-11 21:03 | PCM.EKG ---
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
--- NOTE | 2018-01-11 21:05 | ER.PDOC ---
General Chief Complaint: Dizziness Stated Complaint: VOMITING AND DIZZINESS TRAVEL OUT OF US: No Time seen by MD: 20:57 Source: patient, family Exam Limitations: no limitations, other (72 yo female brought in by daughter for 2 months of generalized weakness, worse when she stands up. Pt states she gets very dizzy when she goes from a lying to a standing position. Has had n/v x 3 over the last two days, not sure what the inciting event was (no new foods, exposures, etc). Has been to PCP for this, Dr. Caban has pt on MULTIPLE meds for medical problems. Was told by Dr. Caban that there was nothing that could be done for the weakness. (sounds like possible medication interactions and worsening parkinson's). ) History of Present Illness Timing/Duration: other (2 months) Modifying Factors: improves with other (Meds from current list: Carafate, Isosorbide, Cymbalta, Novalog, Zantac, Flonase, Reynolds 7.5, Gabapentin, Phenergan (prn only), sl NTG prn, Sinemet, Zolpidem, Voltaren gel, Pravastatin, Coreg. ) Associated Symptoms: denies symptoms Allergies: Coded Allergies: butorphanol (Verified Allergy, Severe, 01/22/17) pentazocine (Verified Allergy, Severe, 01/22/17) codeine (Verified Adverse Reaction, Intermediate, GI UPSET, 03/15/17) Home Meds Active Scripts Varenicline Tartrate (CHANTIX) 1 Each Tab.ds.pk, 1 EACH PO BID for 30 Days, 0 Refills DIRECTED IN STARTER CONVENIENCE PACK. Prov:MARIAM CUNNINGHAM APRN, NP 02/23/17 Ticagrelor (BRILINTA) 90 Mg Tablet, 90 MG PO BID for PCI, #180 TABLET 4 Refills Prov:MARIAM CUNNINGHAM APRN, NP 02/23/17 Reported Medications Clopidogrel Bisulfate (PLAVIX) 75 Mg Tablet, 75 MG PO DAILY, TABLET 03/15/17 Insulin Detemir (LEVEMIR) 100 Unit/1 Ml Vial, 60 UNIT SQ HS, VIAL 02/20/17 Tramadol Hcl (TRAMADOL HCL) 50 Mg Tablet, 50 MG PO BID, TABLET 01/22/17 Lorazepam (LORAZEPAM) 1 Mg Tablet, 1 MG PO TID, TABLET 01/22/17 Isosorbide Mononitrate (ISOSORBIDE MONONITRATE ER) 30 Mg Tab.er.24h, 30 MG PO DAILY 01/22/17 Acetaminophen (ACETAMINOPHEN) 500 Mg Tablet, 500 MG PO HS, TABLET 01/22/17 Cholecalciferol (Vitamin D3) (VITAMIN D3) 5,000 Unit Tablet, 1 UNIT PO DAILY, TABLET 01/22/17 B Complex with Vitamin C (B-Complex with C) 1 Each Tablet, 1 EACH PO DAILY, TABLET 01/22/17 Zolpidem Tartrate (ZOLPIDEM TARTRATE) 10 Mg Tablet, 10 MG PO HS, TABLET 01/22/17 Ipratropium/Albuterol Sulfate (IPRAT-ALBUT 0.5-3(2.5) MG/3 ML) 3 Ml Ampul.neb, 3 ML IH 10/19/14 Fluticasone/Vilanterol (Breo Ellipta 100-25 Mcg INH) 1 Each Aer.pow.ba, 1 EACH IH PRN for SHORTNESS OF BREATH 10/19/14 Arformoterol Tartrate (BROVANA) 15 Mcg/2 Ml Vial.neb, 15 MCG IH 10/19/14 Gabapentin (NEURONTIN) 300 Mg Capsule, 400 MG PO QID, #90 CAP 3 Refills 05/06/14 Pravastatin Sodium (PRAVASTATIN SODIUM) 40 Mg Tablet, 40 MG PO HS, TABLET 05/04/14 Metoprolol Tartrate (LOPRESSER 100MG) 100 Mg Tablet, 100 MG PO DAILY for HYPERTENSION, #60 TAB 05/04/14 Duloxetine Hcl (CYMBALTA) 60 Mg Capsule.dr, 60 MG PO DAILY 05/04/14 Insulin Aspart (NOVOLOG) 100 Unit/1 Ml Insuln.pen, 15 UNIT SQ TID 05/04/14 Ramipril 2.5MG (ALTACE 2.5MG) 2.5 Mg Capsule, 2.5 MG PO DAILY, CAPSULE 05/04/14 Carbidopa/Levodopa (CARBIDOPA-LEVO ER 25-100 TAB) 1 Each Tablet.er, 1 EACH PO QID 05/04/14 Lorazepam (LORAZEPAM) 1 Mg Tablet, 1 MG PO BID, TABLET 05/04/14 Budesonide (BUDESONIDE) 0.5 Mg/2 Ml Ampul.neb, 0.5 MG IH BID 05/04/14 Past Medical History Medical History: cardiac problems, diabetes, high cholesterol, heart attack, hypertension, parkinson, other (severe osteoarthritis in hands, neuropathy, insomnia) Surgical History: appendectomy, hysterectomy, stent LMP (females 10-50): hysterectomy Social History Smoking: non-smoker Alcohol Use: none Drug Use: none Review of Systems Constitutional: see HPI Respiratory: no symptoms reported Cardiovascular: no symptoms reported Gastrointestinal: see HPI Genitourinary: no symptoms reported Musculoskeletal: no symptoms reported Skin: no symptoms reported Psychiatric/Neurological: no symptoms reported Hematologic/Lymphatic: no symptoms reported Immunological/Allergic: no symptoms reported All Other Systems: Reviewed and Negative Physical Exam General Appearance: No Apparent Distress, Other (ancient appearing, chronically debilitated, pale female in NAD (appears 10-15 years OLDER than stated age). 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 as Tested, No Motor/Sensory Deficits, Alert, Normal Mood/Affect, Oriented x 3 Skin: Pallor Lymphatic: No Adenopathy Results/Orders Results/Orders Laboratory Tests Test 01/11/18 20:55 01/11/18 20:57 01/11/18 21:06 Urine Collection Type CCMS Urine Color YELLOW (YELLOW) Urine Appearance CLEAR (CLEAR) Urine Bilirubin NEGATIVE MG/DL (NEGATIVE) Urine Ketones NEGATIVE (NEGATIVE) Urine Specific [place] 1.015 (1.005-1.035) Urine pH 5 (5.0-6.0) Urine Protein 30 mg/dL (NEGATIVE) Urine Urobilinogen NORMAL (NEGATIVE) Urine Nitrate NEGATIVE (NEGATIVE) Urine Leukocyte Esterase NEGATIVE (NEGATIVE) Urine Blood NEGATIVE (NEGATIVE) Urine RBC NONE SEEN RBC/HPF (NONE Urine WBC NONE SEEN WBC/HPF (0-2) Urine Squamous Epithelial Cells FEW #/HPF (FEW) Urine Renal Epithelial Cells FEW #/HPF (NONE SEEN) Urine Bacteria NONE SEEN (NONE SEEN) Urine Hyaline Casts 0-1 (NONE SEEN) Urine Other MUCUS RARE #/HPF Urine Glucose 1000 (NEGATIVE) White Blood Count 12.6 10^3/uL (4.5-11.0) Red Blood Count 3.47 10^6/uL (4.00-5.20) Hemoglobin 9.9 g/dL (12.0-15.0) Hematocrit 29.7 % (36.0-46.0) Mean Corpuscular Volume 85.6 fL (78-100) Mean Corpuscular Hemoglobin 28.5 pg (26-34) Mean Corpuscular Hemoglobin Concent 33.3 g/dL (33-37) Red Cell Distribution Width 14.8 % (11.5-14.5) Platelet Count 313 10^3/uL (150-400) Mean Platelet Volume 10.5 fL (7.8-11.0) Neutrophils (%) (Auto) 53.1 % (41.0-85.0) Lymphocytes (%) (Auto) 36.5 % (24.0-44.0) Monocytes (%) (Auto) 7.6 % (5.0-12.0) Neutrophils # (Auto) 6.7 10^3/uL (1.8-7.7) Lymphocytes # (Auto) 4.6 10^3/uL (1.0-4.8) Monocytes # (Auto) 1.0 10^3/uL (0.3-0.8) Absolute Immature Granulocyte (auto 0.02 10^3 u/L (0-2) Eosinophils % 2.4 % (0.0-5.0) Basophils % 0.2 % (0.0-0.2) Basophils # 0.0 10^3/uL (0.0-0.1) Eosinophil Count 0.3 10^3/uL (0.0-0.2) Sodium Level 131 mmol/L (132-145) Potassium Level 4.3 mmol/L (3.6-5.2) Chloride Level 96.0 mmol/L (96-109) Carbon Dioxide Level 28.6 mmol/L (20.0-32) Anion Gap 10.7 Blood Urea Nitrogen 21 mg/dL (7-18) Creatinine 1.07 mg/dL (0.59-1.40) Estimated GFR () 60.7 (>/=60) BUN/Creatinine Ratio 19.0 Glucose Level 97 mg/dL (70-110) Calcium Level 9.1 mg/dL (8.4-10.5) Total Bilirubin 0.4 mg/dL (0.2-1.0) Aspartate Amino Transf (AST/SGOT) 16 U/L (0-35) Alanine Aminotransferase (ALT/SGPT) 15 U/L (12-78) Alkaline Phosphatase 98 U/L (50-136) Total Protein 7.6 g/dL (6.4-8.2) Albumin 3.5 g/dL (3.4-5.0) Globulin 4.1 Percent Immature Gran (Cell Imm) 0.20 % (0.00-0.50) Helicobacter pylori Screen NEGATIVE (NEGATIVE) Prothrombin Time 10.4 SEC (9.8-11.9) Prothrombin Time INR (Non-Therap) 1.0 Activated Partial Thromboplast Time 27.9 SEC (24.67-30.72) D-Dimer 0.37 mg/L (0.19-0.49) Total Creatine Kinase 62 U/L (26-192) Creatine Kinase MB 0.7 ng/mL (0.5-3.6) Troponin I < 0.02 ng/mL (0.00-0.05) Pro-B-Type Natriuretic Peptide 128 pg/mL (0-125) very likely multiple medication interactions, but patient says she has to be on all of these meds, and states her dr told her the same thing. Also likely worsening Parkinson's as well. Progress Progress EKG shows NSR with sinus arrhythmia at 73, long QT at 432 ms, no acute ischemic changes. 1000 glucose and protein in urine, but no UTI, remainder of workup unrevealing. Will give small IVF bolus, zofran, and then release to home. ?? simplify med regimen by PCP. EKG/XRAY/CT/US EKG: NSR Departure Time of Disposition: 21:59 Disposition: 01 HOME, SELF-CARE Impression: Primary Impression: Dizziness and giddiness Additional Impression: Vomiting Qualified Codes: R11.10 - Vomiting, unspecified Condition: Improved Referrals: ADONIS YIN NUCLEAR SUPERVISING OPERATOR (PCP) PRIMARY CARE PROVIDER Duration or Time Spent with Pa: LAURA BAHENA MD Jan 11, 2018 21:05
[2018-01-11 21:19] LABS: CALCIUM 9.1 mg/dL (8.4-10.5); CARBON DIOXIDE 28.6 mmol/L (20.0-32)
[2018-01-11 21:31] LABS: BILIRUBIN,URINE NEGATIVE (NEGATIVE); UROBILINOGEN,URINE NORMAL (NEGATIVE)
[2018-01-11 21:35] LABS: APPEARANCE,URINE CLEAR (CLEAR); UA COLOR YELLOW (YELLOW)
[2018-01-11 21:45] VITALS: BP 125/58
[2018-01-11] MEDS ORDERED: ZOFRAN IV STA (21:55)
[2018-01-11] MEDS ORDERED: NS 500ML 500 ML IV ONE ×2 (22:00→22:06)
[2018-01-11] MEDS ORDERED: ZOFRAN ONE (22:05)
[2018-01-11 23:11] VITALS: BP 115/59
== END 2018-01-11 23:04 | disposition home or self-care (01) ==
LOC: ER 19:14
DX: R42 Dizziness and giddiness (principal); R11.2 Nausea with vomiting, unspecified; E11.40 Type 2 diabetes mellitus with diabetic neuropathy, unspecified; E78.00 Pure hypercholesterolemia, unspecified; G20 Parkinson's disease; I10 Essential (primary) hypertension; I25.2 Old myocardial infarction; Z79.4 Long term (current) use of insulin; Z88.5 Allergy status to narcotic agent; Z90.710 Acquired absence of both cervix and uterus; Z90.49 Acquired absence of other specified parts of digestive tract; Z79.899 Other long term (current) drug therapy; Z88.8 Allergy status to other drugs, medicaments and biological substances; Z79.01 Long term (current) use of anticoagulants
CPT/HCPCS: 36415; 80053; 81000; 82550; 82553; 83880; 84484; 85025; 85379; 85610; 85730; 86677; 93005; 96361; 96374; 99285; J2405; J7040

== ENCOUNTER → 2018-03-14 | Outpatient (CLI) | payer MEDICARE, MEDICAID ==
[~2018-03-14] MED LIST changes: -AMLO5TAB2 PO; +AMLO5TAB7 PO; -IPRA3AMP IH; +IPRA3AMP25 IH; -METF10003 PO; +METF10007 PO
[2018-03-14 15:05] LABS: BASOPHIL % 0.3 % (0.0-0.2); EOSINOPHIL # 0.5 10^3/uL (0.0-0.2); EOSINOPHIL % 6.1 % (0.0-5.0); HEMOGLOBIN 10.8 g/dL (12.0-15.0); LYMPHOCYTES # 2.8 10^3/uL (1.0-4.8); LYMPHOCYTES % 38.1 % (24.0-44.0); MEAN CELL HGB 26.9 pg (26-34); MEAN CELL HGB CONCENTRATION 31.6 g/dL (33-37); MEAN CORP VOLUME 85.3 fL (78-100); MEAN PLATELET VOLUME 10.6 fL (7.8-11.0); MONOCYTES # 0.7 10^3/uL (0.3-0.8); NEUTROPHIL # 3.5 10^3/uL (1.8-7.7); NEUTROPHILS % 46.4 % (41.0-85.0); RED CELL DISTRIBUTION WIDTH 13.5 % (11.5-14.5); WHITE BLOOD CELL 7.4 10^3/uL (4.5-11.0)
[2018-03-14 15:25] LABS: CALCIUM 8.9 mg/dL (8.4-10.5); CARBON DIOXIDE 30.5 mmol/L (20.0-32)
== END | disposition home or self-care (01) ==
LOC: NPLAB 14:17
PROVIDERS: ATTEND Internal Medicine
DX: I10 Essential (primary) hypertension (principal); E11.40 Type 2 diabetes mellitus with diabetic neuropathy, unspecified
CPT/HCPCS: 80053; 85025; 86140

== ENCOUNTER → 2018-07-15 | Outpatient (CLI) | payer MEDICARE, MEDICAID ==
[~2018-07-15] MED LIST changes: +AMLO5TAB10 PO; -AMLO5TAB7 PO
--- NOTE | 2018-07-15 10:21 | DIREP ---
PROCEDURE:CT SOFT TISSUE NECK W&W/O COMPARISON:None. INDICATIONS:M54.2 CERVICALGIA TECHNIQUE:CT images were created with and without intravenous contrast material. Sagittal and coronal reconstructions are performed. The study was reviewed on abdominal, lung, liver and bone windows PICC FINDINGS: NASOPHARYNX:Normal. Fossae of Rosenmuller and torus tubarius are symmetric. ORAL CAVITY:Normal. No visible mass. OROPHARYNX:Normal. No significant tonsillar enlargement. Mucosal space shows no evidence for mucosal mass lesion. Parapharyngeal spaces and the labor and delivery registered nurse spaces are normal. HYPOPHARYNX:Air is marked thickening of the area epiglottic folds, this is best identified on transaxial images number 32 through 38, series 5. Correlation with clinical examination and if indicated, with direct/indirect laryngoscopy is recommended. There is subtle effacement of the left piriform sinuses. LARYNX:Normal. The vocal cords are symmetric and without mass. No erosion of the laryngeal cartilages is seen. SINUSES:Normal. Limited views show no significant fluid or mucosal thickening. NECK GLANDS:Normal. The parotid, submandibular, and thyroid glands are unremarkable. LYMPH NODES:Normal. No pathological-appearing or enlarged lymph nodes. SKULL BASE:Normal. Foramina are symmetric without bony erosion. VASCULATURE:Atheromatous calcifications involving the carotid artery is. BONES:Large ventral osteophytes identified involving C3-4, C4-5, C5-6 and at C6-C7. Minimal degenerative anterolisthesis of C3 on C4 and C5 on C6 as well as C6 on C7. OTHER:Normal. No additional imaging findings. CONCLUSION: Severe large ventral osteophytes with multilevel narrowing of intervertebral foramen identified. Suggest a follow-up MRI of the cervical spine. Asymmetrical thickening especially of the left aryepiglottic folds with effacement of the left piriform sinus. Correlation with direct/indirect laryngoscopy is recommended to rule out a mass lesion. No pathological adenopathy seen in the neck. Dictated by: Michi Syed MD on 07/15/2018 at 10:13 AM
== END | disposition home or self-care (01) ==
LOC: RAD 09:08
DX: M25.78 Osteophyte, vertebrae (principal); M48.02 Spinal stenosis, cervical region; I65.29 Occlusion and stenosis of unspecified carotid artery
CPT/HCPCS: 36415; 70492; 82565; Q9965

== ENCOUNTER 2018-07-18 10:42 | Emergency (ER) | payer MEDICARE, MEDICAID ==
[~2018-07-18] VITALS: Ht 157.5 cm; Wt 69.9 kg
--- NOTE | 2018-07-18 10:45 | NUR ---
ARRIVAL PATIENT TO ROOM 8 VIA , STATES THAT SHE HAS HAD SHARP, STABBING ABDOMEN PAIN SINCE SHE ATE AT THE [facility] ON SUNDAY. PATIENT HAS HAD SEVERAL BOUGHTS OF DIARRHEA YESTERDAY, BUT NONE TODAY. PATIENT CONNECTED TO ALL MONITORS, ASSESSMENT COMPLETED, AWAITING MD PEDRAZA.
[2018-07-18 11:01] VITALS: BP 139/78
[2018-07-18] MEDS ORDERED: SUBLIMAZE IM STA (11:04)
--- NOTE | 2018-07-18 11:12 | ER.PDOC ---
General Chief Complaint: Abdomen Pain Stated Complaint: ABD PAIN Time seen by MD: 12:33 Source: patient Exam Limitations: no limitations History of Present Illness Timing/Duration: 24 hours Severity/Quality: moderate, cramping Radiation: no radiation Exacerbated by: food Relieved By: nothing Allergies: Coded Allergies: butorphanol (Verified Allergy, Severe, 01/22/17) pentazocine (Verified Allergy, Severe, 01/22/17) codeine (Verified Adverse Reaction, Intermediate, GI UPSET, 03/15/17) Home Meds Active Scripts Varenicline Tartrate (CHANTIX) 1 Each Tab.ds.pk, 1 EACH PO BID for 30 Days, 0 Refills DIRECTED IN STARTER CONVENIENCE PACK. Prov:MARIAM CUNNINGHAM REED DIPPER 02/23/17 Ticagrelor (BRILINTA) 90 Mg Tablet, 90 MG PO BID for PCI, #180 TABLET 4 Refills Prov:MARIAM CUNNINGHAM REED DIPPER 02/23/17 Reported Medications Clopidogrel Bisulfate (PLAVIX) 75 Mg Tablet, 75 MG PO DAILY, TABLET 03/15/17 Insulin Detemir (LEVEMIR) 100 Unit/1 Ml Vial, 60 UNIT SQ HS, VIAL 02/20/17 Tramadol Hcl (TRAMADOL HCL) 50 Mg Tablet, 50 MG PO BID, TABLET 01/22/17 Lorazepam (LORAZEPAM) 1 Mg Tablet, 1 MG PO TID, TABLET 01/22/17 Isosorbide Mononitrate (ISOSORBIDE MONONITRATE ER) 30 Mg Tab.er.24h, 30 MG PO DAILY 01/22/17 Acetaminophen (ACETAMINOPHEN) 500 Mg Tablet, 500 MG PO HS, TABLET 01/22/17 Cholecalciferol (Vitamin D3) (VITAMIN D3) 5,000 Unit Tablet, 1 UNIT PO DAILY, TABLET 01/22/17 B Complex with Vitamin C (B-Complex with C) 1 Each Tablet, 1 EACH PO DAILY, TABLET 01/22/17 Zolpidem Tartrate (ZOLPIDEM TARTRATE) 10 Mg Tablet, 10 MG PO HS, TABLET 01/22/17 Ipratropium/Albuterol Sulfate (IPRAT-ALBUT 0.5-3(2.5) MG/3 ML) 3 Ml Ampul.neb, 3 ML IH 10/19/14 Fluticasone/Vilanterol (Breo Ellipta 100-25 Mcg INH) 1 Each Aer.pow.ba, 1 EACH IH PRN for SHORTNESS OF BREATH 10/19/14 Arformoterol Tartrate (BROVANA) 15 Mcg/2 Ml Vial.neb, 15 MCG IH 10/19/14 Gabapentin (NEURONTIN) 300 Mg Capsule, 400 MG PO QID, #90 CAP 3 Refills 05/06/14 Pravastatin Sodium (PRAVASTATIN SODIUM) 40 Mg Tablet, 40 MG PO HS, TABLET 05/04/14 Metoprolol Tartrate (LOPRESSER 100MG) 100 Mg Tablet, 100 MG PO DAILY for HYPERTENSION, #60 TAB 05/04/14 Duloxetine Hcl (CYMBALTA) 60 Mg Capsule.dr, 60 MG PO DAILY 05/04/14 Insulin Aspart (NOVOLOG) 100 Unit/1 Ml Insuln.pen, 15 UNIT SQ TID 05/04/14 Ramipril 2.5MG (ALTACE 2.5MG) 2.5 Mg Capsule, 2.5 MG PO DAILY, CAPSULE 05/04/14 Carbidopa/Levodopa (CARBIDOPA-LEVO ER 25-100 TAB) 1 Each Tablet.er, 1 EACH PO QID 05/04/14 Lorazepam (LORAZEPAM) 1 Mg Tablet, 1 MG PO BID, TABLET 05/04/14 Budesonide (BUDESONIDE) 0.5 Mg/2 Ml Ampul.neb, 0.5 MG IH BID 05/04/14 Vital Signs First Vital Signs Date Time Temp Pulse Resp B/P (MAP) Pulse Ox O2 Delivery O2 Flow Rate FiO2 07/18/18 10:58 98.4 104 18 98.4 07/18/18 10:58 95 Room Air 07/18/18 11:01 139/78 (98) Last Vital Signs Date Time Temp Pulse Resp B/P (MAP) Pulse Ox O2 Delivery O2 Flow Rate FiO2 07/18/18 11:01 98.4 104 18 139/78 (98) 95 Room Air 98.4 Past Medical History Medical History: cardiac problems, diabetes, hypertension Surgical History: appendectomy, cholecystectomy, hysterectomy, tonsillectomy Social History Smoking: non-smoker Alcohol Use: none Drug Use: none Reviewed Nursing Reviewed: Vital Signs, Abn. 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, No Motor/Sensory Deficits, Alert, Normal Mood/Affect, Oriented x 3 Skin: Normal Color, Warm/Dry Lymphatic: No Adenopathy Course Sepsis Screening Results: Posi: POSITIVE SEPSIS RISK Duration or Total Time Spent w: 20 Vitals & review Data Vital Sign - Last 24 Hours 07/18/18 07/18/18 07/18/18 10:58 10:58 11:01 Temp 98.4 98.4 98.4 98.4 98.4 98.4 Pulse 104 78 104 Resp 18 18 18 B/P (MAP) 139/78 (98) Pulse Ox 95 95 O2 Delivery Room Air Room Air Current Medications Medications (Trade) Dose Ordered Sig/Romulo PRN Reason Start Time Stop Time Status Last Admin Fentanyl Citrate (Sublimaze) 50 mcg STAT STAT 07/18/18 11:04 07/18/18 11:05 Sepsis Infection Criteria Pres: None O2 Sat by Pulse Oximetry: 95 Departure Time of Disposition: 13:00 Disposition: 01 HOME, SELF-CARE Impression: Primary Impression: Mesenteric ischemia, chronic Condition: Improved Referrals: ADONIS YIN REED DIPPER (PCP) PRIMARY CARE PROVIDER Duration or Time Spent with Pa: 2 hrs THI ALEXIS MD Jul 18, 2018 11:12
[2018-07-18] MEDS ORDERED: SUBLIMAZE IV STA (11:18)
[2018-07-18] MEDS ORDERED: SUBLIMAZE ONE (11:18)
[2018-07-18] MEDS ORDERED: NS 1000ML 1,000 ML ONE (11:18)
[2018-07-18 11:25] LABS: BASOPHIL % 0.3 % (0.0-0.2); EOSINOPHIL # 0.3 10^3/uL (0.0-0.2); HEMOGLOBIN 13.3 g/dL (12.0-15.0); LYMPHOCYTES # 3.3 10^3/uL (1.0-4.8); LYMPHOCYTES % 36.1 % (24.0-44.0); MEAN CELL HGB 29.4 pg (26-34); MEAN CORP VOLUME 86.5 fL (78-100); MONOCYTES # 0.7 10^3/uL (0.3-0.8); MONOCYTES % 7.2 % (5.0-12.0); NEUTROPHIL # 4.9 10^3/uL (1.8-7.7); NEUTROPHILS % 53.4 % (41.0-85.0); PLATELET COUNT 230 10^3/uL (150-400); RED CELL DISTRIBUTION WIDTH 14.4 % (11.5-14.5); WHITE BLOOD CELL 9.3 10^3/uL (4.5-11.0)
[2018-07-18] MEDS ORDERED: NS 1000ML 1,000 ML IV ONE (11:30)
--- NOTE | 2018-07-18 11:36 | NUR ---
CT PATIENT TO CT.
[2018-07-18 11:40] LABS: CALCIUM 11.5 mg/dL (8.4-10.5); CARBON DIOXIDE 33.1 mmol/L (20.0-32)
--- NOTE | 2018-07-18 11:55 | NUR ---
CT PATIENT BACK FROM CT
[2018-07-18 12:00] VITALS: BP 134/74
--- NOTE | 2018-07-18 12:10 | DIREP ---
PROCEDURE:CT ABD/PELVIS WITH CONTRAST TECHNIQUE:Following the intravenous administration of contrast material, axial cuts were obtained from the dome of the diaphragm to the ischial tuberosities. The images were viewed at lung and soft tissue settings. Sagittal and coronal reconstructions are provided. COMPARISON:[facility], CT, CT-ABDOMEN W/CONTRAST, 07/22/2014, 11:17 AM. INDICATIONS:diffuse abdominal pain, diffuse tender, no gaurding/rebound FINDINGS: LOWER CHEST:The lung bases are clear. LIVER:Nodularity to the liver with enlarged left lobe consistent with cirrhosis. Focal calcifications seen in the upper right lobe and posterior right lobe were on previous study. previous study. BILIARY:Previous cholecystectomy. PANCREAS:Normal. SPLEEN:Calcified granuloma in the spleen unchanged. URINARY TRACT:Normal. ADRENALS:Normal. AORTA/VASCULAR:Extensive arterial calcifications. Bilateral iliac artery stents. RETROPERITONEUM:Normal. BOWEL/MESENTERY:Normal. The appendix is not identified but there are no inflammatory changes in the right lower quadrant. ABDOMINAL WALL:Normal. PELVIS:Previous hysterectomy. BONES:Normal. OTHER:Numerous calcified gluteal injection granulomas. CONCLUSION: 1. No explanation for patient's symptoms. 2. Cirrhosis. 3. Previous cholecystectomy and hysterectomy. 4. Extensive atherosclerosis. Bilateral iliac artery stents. Dictated by: Roman Nelson M.D. on 07/18/2018 at 11:59 AM
[2018-07-18 13:00] VITALS: BP 136/74
[2018-07-18 13:02] VITALS: BP 134/74
== END 2018-07-18 13:17 | disposition home or self-care (01) ==
LOC: ER 10:42
DX: K55.1 Chronic vascular disorders of intestine (principal); E11.9 Type 2 diabetes mellitus without complications; I10 Essential (primary) hypertension; Z90.710 Acquired absence of both cervix and uterus; Z90.49 Acquired absence of other specified parts of digestive tract; Z88.5 Allergy status to narcotic agent; Z79.899 Other long term (current) drug therapy; Z79.4 Long term (current) use of insulin; Z88.8 Allergy status to other drugs, medicaments and biological substances; Z90.89 Acquired absence of other organs
CPT/HCPCS: 36415; 36600; 74177; 80053; 82150; 83605; 83690; 85025; 85610; 85730; 86677; 96374; 99284; J3010; J7030; Q9965; 96361; 96372

== ENCOUNTER 2018-10-29 13:30 | Emergency (ER) | payer MEDICARE, OTHER ==
[~2018-10-29] VITALS: Ht 154.9 cm; Wt 67.6 kg
[2018-10-29 13:35] VITALS: BP 130/66
--- NOTE | 2018-10-29 13:35 | NUR ---
ARRIVAL PATIENT ARRIVED TO ED3 VIA GURNEY BY [facility], C/O OF VOMITING BLOOD AFTER COUGHING TODAY, SMALL BLOOD CLOT NOTED AFTER COUGHING. PATIENT WAS RECENTLY IN [facility] WHERE SHE HAD A TRACH PLACED DUE TO THROAT CANCER, PATIENT IS UNSURE TO WHO PLACED THE TRACH AND HAD NOT STARTED CANCER TREATMENT. CAME TO THE ED FOR FURTHER EVAL.
--- NOTE | 2018-10-29 13:57 | ER.PDOC ---
General Chief Complaint: General Complaint Stated Complaint: BLEEDING FROM MOUTH TRAVEL OUT OF US: No Time seen by MD: 13:39 Source: patient, family Exam Limitations: no limitations History of Present Illness Initial Comments Started bleeding from throat after coughing at home. Timing/Duration: 1 hour Severity: moderate Associated Symptoms: cough Allergies: Coded Allergies: butorphanol (Verified Allergy, Severe, 01/22/17) pentazocine (Verified Allergy, Severe, 01/22/17) codeine (Verified Adverse Reaction, Intermediate, GI UPSET, 03/15/17) Home Meds Active Scripts Varenicline Tartrate (CHANTIX) 1 Each Tab.ds.pk, 1 EACH PO BID for 30 Days, 0 Refills DIRECTED IN STARTER CONVENIENCE PACK. Prov:MARIAM CUNNINGHAM DYER AND WASHER 02/23/17 Ticagrelor (BRILINTA) 90 Mg Tablet, 90 MG PO BID for PCI, #180 TABLET 4 Refills Prov:MARIAM CUNNINGHAM DYER AND WASHER 02/23/17 Reported Medications Clopidogrel Bisulfate (PLAVIX) 75 Mg Tablet, 75 MG PO DAILY, TABLET 03/15/17 Insulin Detemir (LEVEMIR) 100 Unit/1 Ml Vial, 60 UNIT SQ HS, VIAL 02/20/17 Tramadol Hcl (TRAMADOL HCL) 50 Mg Tablet, 50 MG PO BID, TABLET 01/22/17 Lorazepam (LORAZEPAM) 1 Mg Tablet, 1 MG PO TID, TABLET 01/22/17 Isosorbide Mononitrate (ISOSORBIDE MONONITRATE ER) 30 Mg Tab.er.24h, 30 MG PO DAILY 01/22/17 Acetaminophen (ACETAMINOPHEN) 500 Mg Tablet, 500 MG PO HS, TABLET 01/22/17 Cholecalciferol (Vitamin D3) (VITAMIN D3) 5,000 Unit Tablet, 1 UNIT PO DAILY, TABLET 01/22/17 B Complex with Vitamin C (B-Complex with C) 1 Each Tablet, 1 EACH PO DAILY, TABLET 01/22/17 Zolpidem Tartrate (ZOLPIDEM TARTRATE) 10 Mg Tablet, 10 MG PO HS, TABLET 01/22/17 Ipratropium/Albuterol Sulfate (IPRAT-ALBUT 0.5-3(2.5) MG/3 ML) 3 Ml Ampul.neb, 3 ML IH 10/19/14 Fluticasone/Vilanterol (Breo Ellipta 100-25 Mcg INH) 1 Each Aer.pow.ba, 1 EACH IH PRN for SHORTNESS OF BREATH 10/19/14 Arformoterol Tartrate (BROVANA) 15 Mcg/2 Ml Vial.neb, 15 MCG IH 10/19/14 Gabapentin (NEURONTIN) 300 Mg Capsule, 400 MG PO QID, #90 CAP 3 Refills 05/06/14 Pravastatin Sodium (PRAVASTATIN SODIUM) 40 Mg Tablet, 40 MG PO HS, TABLET 05/04/14 Metoprolol Tartrate (LOPRESSER 100MG) 100 Mg Tablet, 100 MG PO DAILY for HYPERTENSION, #60 TAB 05/04/14 Duloxetine Hcl (CYMBALTA) 60 Mg Capsule.dr, 60 MG PO DAILY 05/04/14 Insulin Aspart (NOVOLOG) 100 Unit/1 Ml Insuln.pen, 15 UNIT SQ TID 05/04/14 Ramipril 2.5MG (ALTACE 2.5MG) 2.5 Mg Capsule, 2.5 MG PO DAILY, CAPSULE 05/04/14 Carbidopa/Levodopa (CARBIDOPA-LEVO ER 25-100 TAB) 1 Each Tablet.er, 1 EACH PO QID 05/04/14 Lorazepam (LORAZEPAM) 1 Mg Tablet, 1 MG PO BID, TABLET 05/04/14 Budesonide (BUDESONIDE) 0.5 Mg/2 Ml Ampul.neb, 0.5 MG IH BID 05/04/14 Past Medical History Medical History: cancer (throat), COPD, diabetes, high cholesterol, parkinson Surgical History: appendectomy, cholecystectomy, hysterectomy, tonsillectomy, other Social History Smoking: non-smoker Alcohol Use: none Drug Use: none Review of Systems Constitutional: no symptoms reported Respiratory: cough (mild), shortness of breath (mild) Cardiovascular: no symptoms reported Genitourinary: no symptoms reported Musculoskeletal: no symptoms reported Skin: no symptoms reported All Other Systems: Reviewed and Negative Physical Exam General Appearance: No Apparent Distress EENT: other (dried blood and fresh blood in oropharynx, no site of bleeding identified) Neck: Non-Tender, Other (trach in place, no bleeding around trach) Respiratory: chest non-tender, lungs clear CVS: reg rate & rhythm Gastrointestinal: Normal Bowel Sounds Back: Normal Inspection Extremities: Normal Range of Motion Neurologic/Psychiatric: Alert Skin: Normal Color, Warm/Dry Results/Orders Results/Orders Orders - MELISA INIGUEZ DO Cbc With Auto Diff (10/29/18 13:46) PT (10/29/18 13:46) Partial Thromboplastin Time. (10/29/18 13:46) Xr Chest 1v (10/29/18 13:46) Basic Metabolic Panel (10/29/18 13:46) Dexamethasone Sod Phosphate (Decadron) (10/29/18 14:38) Vital Signs Date Time Temp Pulse Resp B/P (MAP) Pulse Ox O2 Delivery O2 Flow Rate FiO2 10/29/18 14:44 98.0 76 18 116/59 (78) 96 Nasal Canula 2.00 98.0 10/29/18 13:35 98.0 83 18 130/66 (87) 96 Nasal Canula 2.00 98.0 10/29/18 13:32 98.0 83 18 96 Nasal Canula 98.0 10/29/18 13:31 98.0 83 18 98.0 Laboratory Tests Test 10/29/18 13:55 White Blood Count 11.7 10^3/uL (4.5-11.0) H Red Blood Count 3.80 10^6/uL (4.00-5.20) L Hemoglobin 11.8 g/dL (12.0-15.0) L Hematocrit 34.9 % (36.0-46.0) L Mean Corpuscular Volume 91.8 fL (78-100) Mean Corpuscular Hemoglobin 31.1 pg (26-34) Mean Corpuscular Hemoglobin Concent 33.8 g/dL (33-37) Red Cell Distribution Width 15.7 % (11.5-14.5) H Platelet Count 242 10^3/uL (150-400) Mean Platelet Volume 10.6 fL (7.8-11.0) Neutrophils (%) (Auto) 56.5 % (41.0-85.0) Lymphocytes (%) (Auto) 30.3 % (24.0-44.0) Monocytes (%) (Auto) 9.2 % (5.0-12.0) Neutrophils # (Auto) 6.6 10^3/uL (1.8-7.7) Lymphocytes # (Auto) 3.6 10^3/uL (1.0-4.8) Monocytes # (Auto) 1.1 10^3/uL (0.3-0.8) H Absolute Immature Granulocyte (auto 0.02 10^3 u/L (0-2) Immature Granulocytes % 0.20 % (0.00-0.50) Eosinophils % 3.6 % (0.0-5.0) Basophils % 0.2 % (0.0-0.2) Basophils # 0.0 10^3/uL (0.0-0.1) Eosinophil Count 0.4 10^3/uL (0.0-0.2) H Prothrombin Time 10.6 SEC (9.8-11.9) Prothrombin Time INR (Non-Therap) 1.1 PTT 26.8 SEC (24.67-30.72) Sodium Level 139 mmol/L (132-145) Potassium Level 4.4 mmol/L (3.6-5.2) Chloride Level 99.0 mmol/L (96-109) Carbon Dioxide Level 29.9 mmol/L (20.0-32) Glucose Level 256 mg/dL (70-110) H Blood Urea Nitrogen 19 mg/dL (7-18) H Creatinine 0.74 mg/dL (0.59-1.40) Calcium Level 9.9 mg/dL (8.4-10.5) Anion Gap 14.5 Estimated GFR () 92.8 (>/=60) BUN/Creatinine Ratio 25.0 Progress Progress Spoke with Dr. Salmeron, the pt's ENT. Due to risk of complications with bleeding from the mass, she agreed with transfer to [facility] ER to get scope. She asked for CT of neck to be done at [facility] vs here. Asked for Unasyn and decadron to be given. Unasyn unavailable here, will substitute Clindamycin. Departure Time of Disposition: 14:35 Disposition: 70 DISC/XFER TO [facility] Impression: Primary Impression: Throat cancer Additional Impression: Hemorrhage of throat Condition: Stable Referrals: ADONIS YIN DYER AND WASHER (PCP) PRIMARY CARE PROVIDER Duration or Time Spent with Pa: 35 MELISA INIGUEZ DO October 29, 2018 13:57
[2018-10-29 13:59] LABS: BASOPHIL % 0.2 % (0.0-0.2); EOSINOPHIL # 0.4 10^3/uL (0.0-0.2); EOSINOPHIL % 3.6 % (0.0-5.0); HEMOGLOBIN 11.8 g/dL (12.0-15.0); LYMPHOCYTES # 3.6 10^3/uL (1.0-4.8); LYMPHOCYTES % 30.3 % (24.0-44.0); MEAN CELL HGB 31.1 pg (26-34); MEAN CELL HGB CONCENTRATION 33.8 g/dL (33-37); MEAN CORP VOLUME 91.8 fL (78-100); MEAN PLATELET VOLUME 10.6 fL (7.8-11.0); MONOCYTES # 1.1 10^3/uL (0.3-0.8); MONOCYTES % 9.2 % (5.0-12.0); NEUTROPHIL # 6.6 10^3/uL (1.8-7.7); NEUTROPHILS % 56.5 % (41.0-85.0); RED CELL DISTRIBUTION WIDTH 15.7 % (11.5-14.5); WHITE BLOOD CELL 11.7 10^3/uL (4.5-11.0)
--- NOTE | 2018-10-29 14:08 | DIREP ---
PROCEDURE:CHEST 1 VIEW COMPARISON:[facility], CR, XRAY CHEST SINGLE VW, 08/12/2017, 03:17 PM. INDICATIONS:hemoptysis FINDINGS: LUNGS/PLEURA:Note is made of a tracheostomy, seated centrally within the trachea. Lung show mild hyper expansion. No perihilar mass lesions or pulmonary nodules are seen. No infiltrates, heart failure or effusions are seen. Suggest a follow-up CT of the chest if the hemoptysis is persistent. VASCULATURE:Normal. Unremarkable pulmonary vasculature. CARDIAC:Normal. No cardiac silhouette abnormality or cardiomegaly. MEDIASTINUM:Normal. No visible mass or adenopathy. BONES:Normal. No fracture or visible bony lesion. OTHER:Negative. CONCLUSION:Tracheostomy noted, mild hyper expansion of the lungs. No active disease. Recommendations as above. Dictated by: Michi Syed MD on 10/29/2018 at 02:07 PM
[2018-10-29 14:11] LABS: CALCIUM 9.9 mg/dL (8.4-10.5); CARBON DIOXIDE 29.9 mmol/L (20.0-32)
--- NOTE | 2018-10-29 14:35 | NUR ---
[facility] DOCTOR FOSTER ON THE PHONE WITH [facility], PATIENT IS ACCEPTED BY DOCTOR EVELIO.
[2018-10-29] MEDS ORDERED: DECADRON IV STA ×2 (14:38→14:50)
[2018-10-29 14:44] VITALS: BP 116/59
[2018-10-29] MEDS ORDERED: ZOFRAN ONE (14:48)
[2018-10-29] MEDS ORDERED: ZOFRAN IV STA (14:49)
[2018-10-29] MEDS ORDERED: DECADRON ONE (14:49)
[2018-10-29] MEDS ORDERED: CLEOCIN 600 MG-D5W-GALAXY 50 ML IV ONE (14:50)
[2018-10-29] MEDS ORDERED: CLEOCIN 600 MG-D5W-GALAXY 50 ML IV STA (14:52)
--- NOTE | 2018-10-29 14:56 | NUR ---
EMS CALLED DISPATCH FOR TRANSFER TO [facility]
--- NOTE | 2018-10-29 15:14 | NUR ---
[facility] HERE FOR TRANSFER
[2018-10-29 15:18] VITALS: BP 130/66
== END 2018-10-29 15:14 | disposition other institution (70) ==
LOC: EDBD 13:30 → ER 13:30
DX: C14.0 Malignant neoplasm of pharynx, unspecified (principal); G20 Parkinson's disease; J44.9 Chronic obstructive pulmonary disease, unspecified; E78.00 Pure hypercholesterolemia, unspecified; E11.9 Type 2 diabetes mellitus without complications; Z79.4 Long term (current) use of insulin; Z79.899 Other long term (current) drug therapy; Z88.5 Allergy status to narcotic agent; Z90.49 Acquired absence of other specified parts of digestive tract; Z90.710 Acquired absence of both cervix and uterus
CPT/HCPCS: 36415; 71045; 80048; 85025; 85610; 85730; 96365; 96375; 99285; J1100; J2405

== ENCOUNTER 2018-11-22 22:37 | Emergency (ER) | payer MEDICARE, MEDICAID ==
[2018-11-22 22:37] VITALS: BP 170/82
[2018-11-22 22:54] VITALS: BP 154/82
--- NOTE | 2018-11-22 23:05 | ER.PDOC ---
General Chief Complaint: Requesting Medical Care Stated Complaint: PULLED OUT TRACH TRAVEL OUT OF US: No Time seen by MD: 22:40 Source: family, EMS Exam Limitations: no limitations History of Present Illness Initial Comments Pt with recent h/o throat cancer, on a tracheostomy, pulled her tube about 30 minutes ago Timing/Duration: 1/2 hour Severity: mild Modifying Factors: improves with cold therapy Associated Symptoms: denies symptoms Allergies: Coded Allergies: butorphanol (Verified Allergy, Severe, 01/22/17) pentazocine (Verified Allergy, Severe, 01/22/17) codeine (Verified Adverse Reaction, Intermediate, GI UPSET, 03/15/17) Home Meds Active Scripts Varenicline Tartrate (CHANTIX) 1 Each Tab.ds.pk, 1 EACH PO BID for 30 Days, 0 Refills DIRECTED IN STARTER CONVENIENCE PACK. Prov:MARIAM CUNNINGHAM ENAMEL PULVERIZER 02/23/17 Ticagrelor (BRILINTA) 90 Mg Tablet, 90 MG PO BID for PCI, #180 TABLET 4 Refills Prov:MARIAM CUNNINGHAM ENAMEL PULVERIZER 02/23/17 Reported Medications Clopidogrel Bisulfate (PLAVIX) 75 Mg Tablet, 75 MG PO DAILY, TABLET 03/15/17 Insulin Detemir (LEVEMIR) 100 Unit/1 Ml Vial, 60 UNIT SQ HS, VIAL 02/20/17 Tramadol Hcl (TRAMADOL HCL) 50 Mg Tablet, 50 MG PO BID, TABLET 01/22/17 Lorazepam (LORAZEPAM) 1 Mg Tablet, 1 MG PO TID, TABLET 01/22/17 Isosorbide Mononitrate (ISOSORBIDE MONONITRATE ER) 30 Mg Tab.er.24h, 30 MG PO DAILY 01/22/17 Acetaminophen (ACETAMINOPHEN) 500 Mg Tablet, 500 MG PO HS, TABLET 01/22/17 Cholecalciferol (Vitamin D3) (VITAMIN D3) 5,000 Unit Tablet, 1 UNIT PO DAILY, TABLET 01/22/17 B Complex with Vitamin C (B-Complex with C) 1 Each Tablet, 1 EACH PO DAILY, TABLET 01/22/17 Zolpidem Tartrate (ZOLPIDEM TARTRATE) 10 Mg Tablet, 10 MG PO HS, TABLET 01/22/17 Ipratropium/Albuterol Sulfate (IPRAT-ALBUT 0.5-3(2.5) MG/3 ML) 3 Ml Ampul.neb, 3 ML IH 10/19/14 Fluticasone/Vilanterol (Breo Ellipta 100-25 Mcg INH) 1 Each Aer.pow.ba, 1 EACH IH PRN for SHORTNESS OF BREATH 10/19/14 Arformoterol Tartrate (BROVANA) 15 Mcg/2 Ml Vial.neb, 15 MCG IH 10/19/14 Gabapentin (NEURONTIN) 300 Mg Capsule, 400 MG PO QID, #90 CAP 3 Refills 05/06/14 Pravastatin Sodium (PRAVASTATIN SODIUM) 40 Mg Tablet, 40 MG PO HS, TABLET 05/04/14 Metoprolol Tartrate (LOPRESSER 100MG) 100 Mg Tablet, 100 MG PO DAILY for HYPERTENSION, #60 TAB 05/04/14 Duloxetine Hcl (CYMBALTA) 60 Mg Capsule.dr, 60 MG PO DAILY 05/04/14 Insulin Aspart (NOVOLOG) 100 Unit/1 Ml Insuln.pen, 15 UNIT SQ TID 05/04/14 Ramipril 2.5MG (ALTACE 2.5MG) 2.5 Mg Capsule, 2.5 MG PO DAILY, CAPSULE 05/04/14 Carbidopa/Levodopa (CARBIDOPA-LEVO ER 25-100 TAB) 1 Each Tablet.er, 1 EACH PO QID 05/04/14 Lorazepam (LORAZEPAM) 1 Mg Tablet, 1 MG PO BID, TABLET 05/04/14 Budesonide (BUDESONIDE) 0.5 Mg/2 Ml Ampul.neb, 0.5 MG IH BID 05/04/14 Past Medical History Surgical History: appendectomy, cholecystectomy, hysterectomy, tonsillectomy, other Social History Drug Use: none Review of Systems EENTM: see HPI All Other Systems: Reviewed and Negative Physical Exam General Appearance: No Apparent Distress, WD/WN EENT: eyes nml inspection, other (tracheostomy) Neck: Non-Tender, Full Range of Motion Respiratory: chest non-tender, lungs clear CVS: reg rate & rhythm, no murmur Gastrointestinal: Normal Bowel Sounds, No Organomegaly, No Pulsatile Mass Back: Normal Inspection Extremities: Normal Range of Motion 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 Skin: Normal Color Lymphatic: No Adenopathy Results/Orders Results/Orders Orders - CLIFFORD CONWAY MD Morphine Sulfate (Morphine Sulfate) (11/22/18 23:30) Lorazepam (Ativan) (11/22/18 23:22) Lorazepam (Ativan) (11/22/18 23:22) Vital Signs Date Time Temp Pulse Resp B/P (MAP) Pulse Ox O2 Delivery O2 Flow Rate FiO2 11/22/18 22:55 99.3 81 22 99 Trach Collar 99.3 11/22/18 22:37 99.3 81 22 170/82 (111) 99 Trach Collar 10.00 99.3 11/22/18 22:37 99.3 81 22 99.3 10/29/18 15:18 76 Administered Medications Medications (Trade) Dose Ordered Sig/Romulo Route PRN Reason Start Time Stop Time Status Last Admin Dose Admin Lorazepam (Ativan) 1 mg STAT STAT IV 11/22/18 23:22 11/22/18 23:23 DC 11/22/18 23:34 1 MG Progress Progress We tried to replaced it but found some resistance and decided to ship to in [place] Departure Time of Disposition: 23:50 Disposition: 02 XFER [facility] Impression: Primary Impression: Tracheostomy complication Condition: Stable Referrals: ADONIS YIN ENAMEL PULVERIZER (PCP) PRIMARY CARE PROVIDER Duration or Time Spent with Pa: 20 CLIFFORD CONWAY MD Nov 22, 2018 23:04
[2018-11-22] MEDS ORDERED: ATIVAN ONE (23:22)
[2018-11-22] MEDS ORDERED: ATIVAN IV STA (23:22)
--- NOTE | 2018-11-22 23:22 | NUR ---
UPDATE PATIENT ANXIOUS AND NOTIFIED EDP. NEW ORDER FOR [facility]IVAN RECEIVED.
[2018-11-22 23:26] VITALS: BP 198/80
[2018-11-22] MEDS ORDERED: MORPHINE SULFATE IV PRN (23:30)
--- NOTE | 2018-11-22 23:36 | NUR ---
UPDATE NO CALL BACK FROM SURGEON CALLED [facility] TO SEE IF THEY WOULD ACCEPT PATIENT AND THEN CONSULT PHYSICIAN.
--- NOTE | 2018-11-22 23:38 | NUR ---
UPDATE WHILE ON THE PHONE RECEIVED CALL BACK FROM SURGEON AND SHE SPOKE WITH DR. CORDON. PATIENT WAS ACCEPTED BY SURGEON BUT WILL BE TRANSFERRED TO THE ER.
--- NOTE | 2018-11-22 23:45 | NUR ---
UPDATE PER SURGEON NEED TO PLACE ET TUBE PRIOR TO TRANFER CALLED RT.
--- NOTE | 2018-11-22 23:59 | NUR ---
RT RT AT BEDSIDE
--- NOTE | 2018-11-23 00:10 | NUR ---
RT ET TUBE PLACED IN TRACHYOSTOMY SIZE 4 AT 9CM. VERIFIED PLACEMENT BY XRAY. SECURED WITH TAPE BY RT. PATIENT TOLERATED WELL. RECEIVING BLOW BY O2 AT 11LPM
[2018-11-23] MEDS ORDERED: ZOFRAN ONE (00:16)
[2018-11-23] MEDS ORDERED: ZOFRAN IV STA (00:19)
--- NOTE | 2018-11-23 00:28 | DIREP ---
PROCEDURE:CHEST 1 VIEW COMPARISON:[facility], CR, XRAY CHEST SINGLE VW, 08/12/2017, 03:17 PM. INDICATIONS:Tube placement FINDINGS: LUNGS/PLEURA:No significant pulmonary parenchymal abnormalities. No effusions. VASCULATURE:Normal. Unremarkable pulmonary vasculature. CARDIAC:Normal. No cardiac silhouette abnormality or cardiomegaly. MEDIASTINUM:Tracheal catheter in place. Right-sided port line in place with tip in the superior vena cava. BONES:Osteophytes in the thoracic spine. OTHER:Negative. CONCLUSION: 1. Tubes in place as described above. 2. The lungs are clear. No pneumothorax. Dictated by: Roman Nelson M.D. on 11/23/2018 at 00:23 AM
--- NOTE | 2018-11-23 01:20 | NUR ---
REPORT CALLED REPORT TO EULALIA FLAHERTY AT [facility].
[2018-11-23 01:49] VITALS: BP 198/80
--- NOTE | 2018-11-23 04:59 | NUR ---
PT ARRIVED AT 2337. PT TRACHEOSTOMY TUBE CAME OUT. PT HAD 97% SATS AND BREATHING WELL. ATTEMPTED TO PLACE ANOTHER 6 TRACH TUBE IN. MET WITH A LOT OF RESISTANCE. CALLED SURGEON FOR TITLE SEARCH MANAGER. WAS TOLD TO SHIP PT TO [facility] [place]. CALLED DR TURNER FOR TITLE SEARCH MANAGER. HE CAME TO SEE THE PATIENT BUT WAS UNABLE TO GET TRACH TUBE IN ALSO. AT 0010 PT A SIZE 4 ETT PLACED IN STOMA BY JADA SCHAEFFER RRT. UNABLE TO GET A NUMBER 5 ETT INTO STOMA. NUMBER 4 ETT WAS WRAP AT THE 9 CM PAM CHEST X RAY DONE. PT GIVEN BLOW BY VIA TRACH MASK AT 10 LPM. PT HAS 97% SATS. HR WAS IN THE 90'S. BI EQUAL BREATH SOUNDS HEARD. PT RICARDO PROCEDURE WELL. PT SENT TO [place] TO HER SURGEON AT 0040 CASSIE DANIEL.
== END 2018-11-23 00:40 | disposition short-term general hospital (02) ==
LOC: EDBD 22:37 → ER 22:37
DX: J95.00 Unspecified tracheostomy complication (principal); Z79.4 Long term (current) use of insulin; Z79.899 Other long term (current) drug therapy; Z88.5 Allergy status to narcotic agent; Z90.49 Acquired absence of other specified parts of digestive tract; Z90.710 Acquired absence of both cervix and uterus
CPT/HCPCS: 71045; 96374; 96375; 99285; J2060; J2405

== ENCOUNTER → 2019-01-01 | Outpatient (CLI) | payer MEDICARE, MEDICAID ==
--- NOTE | 2019-01-02 09:17 | DIREP ---
PROCEDURE:MRI - BRAIN WITH AND WITHOUT CONTRAST COMPARISON:[facility], MR, MRI BRAIN W/O, 10/20/2014, 08:50 AM. [facility], CT, CT SOFT TISSUE NECK W&W/O, 07/15/2018, 09:56 AM. 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 Images were performed without and with gadolinium contrast.. FINDINGS: CSF SPACES:Ventricles, cisterns, and sulci are appropriate for age. No hydrocephalus, subarachnoid hemorrhage, or mass. CEREBRUM:Evidence of prior lacunar infarct in the right basal ganglia. Nonspecific foci of increased T2 FLAIR signal in the white matter. Most likely on the basis of chronic microvascular ischemic change. Differential considerations include sequela of chronic migraines, vasculitis, and demyelinating process. No edema, hemorrhage, mass, acute infarction, or inappropriate atrophy. No abnormal enhancement. CEREBELLUM:No edema, hemorrhage, mass, acute infarction, or inappropriate atrophy. BRAINSTEM:Focal area of increased contrast enhancement minimally increased T2 signal within the right dinorah measuring approximately 9 x 6 x 1.6 cm. Differential considerations include vascular etiologies is the most likely possibility. Less likely possibility includes neoplasm however. Recommend 3 month follow-up to reassess. Additionally, IAC/brainstem protocol with contrast may be of benefit to exclude artifact. SKULL:No mass or other significant visible lesion. SINUSES:Limited views demonstrate no significant mucosal thickening or fluid. OTHER:None. CONCLUSION: 1. Enhancement within the dinorah, most likely vascular in origin. Cannot exclude neoplasm however. IAC/dedicated brainstem protocol with contrast may be of benefit to better visualized. At a minimum, three-month follow-up is recommended. 2. Chronic changes otherwise as detailed above. Dictated by: Thee Max DO on 01/02/2019 at 08:55 AM
== END | disposition home or self-care (01) ==
LOC: RAD 10:23
PROVIDERS: ATTEND Internal Medicine
DX: C32.0 Malignant neoplasm of glottis (principal)
CPT/HCPCS: 36415; 70553; 82565; A9579

== ENCOUNTER 2019-01-06 22:28 | Inpatient (IN) | payer MEDICARE, MEDICAID ==
[~2019-01-06] VITALS: Ht 154.9 cm; Wt 62.6 kg
[2019-01-06] MEDS ORDERED: TYLENOL PO STA (22:29)
[2019-01-06] MEDS ORDERED: DUONEB 0.5 MG-3 MG/3 ML SOLN IH STA (22:32)
[2019-01-06] MEDS ORDERED: DECADRON IH STA (22:32)
[2019-01-06] MEDS ORDERED: ATIVAN PO STA (22:35)
[2019-01-06 22:36] VITALS: BP 159/72
[2019-01-06 22:52] LABS: BASOPHIL % 0.5 % (0.0-0.2); EOSINOPHIL % 0.5 % (0.0-5.0); HEMOGLOBIN 9.3 g/dL (12.0-15.0); LYMPHOCYTES # 1.1 10^3/uL (1.0-4.8); LYMPHOCYTES % 28.6 % (24.0-44.0); MEAN CELL HGB 29.1 pg (26-34); MEAN CELL HGB CONCENTRATION 33.2 g/dL (33-37); MEAN CORP VOLUME 87.5 fL (78-100); MONOCYTES # 0.1 10^3/uL (0.3-0.8); MONOCYTES % 3.3 % (5.0-12.0); NEUTROPHIL # 2.7 10^3/uL (1.8-7.7); NEUTROPHILS % 66.8 % (41.0-85.0); RED CELL DISTRIBUTION WIDTH 14.8 % (11.5-14.5)
[2019-01-06] MEDS ORDERED: TYLENOL PO ONE (22:54)
[2019-01-06] MEDS ORDERED: ATIVAN ONE (22:54)
[2019-01-06] MEDS ORDERED: WATER ONE (22:55)
[2019-01-06] MEDS ORDERED: DECADRON ONE (23:02)
[2019-01-06] MEDS ORDERED: DUONEB 0.5 MG-3 MG/3 ML SOLN IH ONE (23:02)
[2019-01-06 23:16] LABS: ALANINE AMINOTRANSFERASE(ML) 10 U/L (12-78); ALKALINE PHOSPHATASE 95 U/L (50-136); ASPARTATE AMINO TRANSFERASE 25 U/L (0-35); CALCIUM 8.9 mg/dL (8.4-10.5); CARBON DIOXIDE 29.8 mmol/L (20.0-32); GLUCOSE 82 mg/dL (70-110)
--- NOTE | 2019-01-06 23:24 | PCM.EKG ---
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1945 Requested By: THI ALEXIS Order Number: [id number] Reading MD: Measurements Intervals Joshua Rate: 108 P: KS: QRS: -6 QRSD: 76 T: 41 QT: 372 QTc: 498 Interpretive Statements Accelerated Junctional rhythm with frequent premature ventricular complexes Nonspecific ST and T wave abnormality Abnormal ECG Compared to ECG 01/11/2018 21:05:30 Accelerated junctional rhythm now present Ventricular premature complex(es) now present ST (T wave) deviation now present Sinus rhythm no longer present Sinus arrhythmia no longer present Prolonged QT interval no longer present Please click the below link to view image of tracing.
[2019-01-06] MEDS ORDERED: MORPHINE SULFATE IV STA (23:29)
[2019-01-06 23:30] VITALS: BP 123/75
--- NOTE | 2019-01-07 | DIREP ---
PROCEDURE:CHEST 2 VIEWS COMPARISON:[facility], CR, XRAY CHEST SINGLE VW, 11/22/2018, 11:52 PM. [facility], CR, XRAY CHEST SINGLE VW, 10/29/2018, 01:45 PM. INDICATIONS:fever , cough FINDINGS: LUNGS/PLEURA:No confluent pulmonary infiltrate. No effusions. No pneumothorax. VASCULATURE:Unremarkable pulmonary vasculature. CARDIAC:No cardiac silhouette abnormality or cardiomegaly. MEDIASTINUM:No visible mass or adenopathy. BONES:No fracture or visible bony lesion. OTHER:Tracheostomy tube with the internal tip at the medial clavicular border. Right-sided port with internal tip projecting over the superior vena cava. CONCLUSION: 1. No confluent pulmonary infiltrate. Dictated by: Rebeca Fairchild MD on 01/06/2019 at 11:58 PM
[2019-01-07 00:14] VITALS: BP 192/84
--- NOTE | 2019-01-07 00:56 | ER.PDOC ---
General Chief Complaint: Dyspnea/Respdistress Stated Complaint: DIFF BREATHING, fever Time seen by MD: 00:44 Source: patient Exam Limitations: no limitations History of Present Illness Timing/Duration: 24 hours Severity: mild Prior Episodes/Possible Cause: occasional episodes Associated Symptoms: anxiety, cough, wheezing Prior symptoms/Treatment: Similar symptoms previous Allergies: Coded Allergies: butorphanol (Verified Allergy, Severe, 01/22/17) pentazocine (Verified Allergy, Severe, 01/22/17) codeine (Verified Adverse Reaction, Intermediate, GI UPSET, 03/15/17) Home Meds Active Scripts Varenicline Tartrate (CHANTIX) 1 Each Tab.ds.pk, 1 EACH PO BID for 30 Days, 0 Refills DIRECTED IN STARTER [employer]IENCE PACK. Prov:MARIAM CUNNINGHAM EQUIP TECH 02/23/17 Ticagrelor (BRILINTA) 90 Mg Tablet, 90 MG PO BID for PCI, #180 TABLET 4 Refills Prov:MARIAM CUNNINGHAM EQUIP TECH 02/23/17 Reported Medications Clopidogrel Bisulfate (PLAVIX) 75 Mg Tablet, 75 MG PO DAILY, TABLET 03/15/17 Insulin Detemir (LEVEMIR) 100 Unit/1 Ml Vial, 60 UNIT SQ HS, VIAL 02/20/17 Tramadol Hcl (TRAMADOL HCL) 50 Mg Tablet, 50 MG PO BID, TABLET 01/22/17 Lorazepam (LORAZEPAM) 1 Mg Tablet, 1 MG PO TID, TABLET 01/22/17 Isosorbide Mononitrate (ISOSORBIDE MONONITRATE ER) 30 Mg Tab.er.24h, 30 MG PO DAILY 01/22/17 Acetaminophen (ACETAMINOPHEN) 500 Mg Tablet, 500 MG PO HS, TABLET 01/22/17 Cholecalciferol (Vitamin D3) (VITAMIN D3) 5,000 Unit Tablet, 1 UNIT PO DAILY, TABLET 01/22/17 B Complex with Vitamin C (B-Complex with C) 1 Each Tablet, 1 EACH PO DAILY, TABLET 01/22/17 Zolpidem Tartrate (ZOLPIDEM TARTRATE) 10 Mg Tablet, 10 MG PO HS, TABLET 01/22/17 Ipratropium/Albuterol Sulfate (IPRAT-ALBUT 0.5-3(2.5) MG/3 ML) 3 Ml Ampul.neb, 3 ML IH 10/19/14 Fluticasone/Vilanterol (Breo Ellipta 100-25 Mcg INH) 1 Each Aer.pow.ba, 1 EACH IH PRN for SHORTNESS OF BREATH 10/19/14 Arformoterol Tartrate (BROVANA) 15 Mcg/2 Ml Vial.neb, 15 MCG IH 10/19/14 Gabapentin (NEURONTIN) 300 Mg Capsule, 400 MG PO QID, #90 CAP 3 Refills 05/06/14 Pravastatin Sodium (PRAVASTATIN SODIUM) 40 Mg Tablet, 40 MG PO HS, TABLET 05/04/14 Metoprolol Tartrate (LOPRESSER 100MG) 100 Mg Tablet, 100 MG PO DAILY for HYPERTENSION, #60 TAB 05/04/14 Duloxetine Hcl (CYMBALTA) 60 Mg Capsule.dr, 60 MG PO DAILY 05/04/14 Insulin Aspart (NOVOLOG) 100 Unit/1 Ml Insuln.pen, 15 UNIT SQ TID 05/04/14 Ramipril 2.5MG (ALTACE 2.5MG) 2.5 Mg Capsule, 2.5 MG PO DAILY, CAPSULE 05/04/14 Carbidopa/Levodopa (CARBIDOPA-LEVO ER 25-100 TAB) 1 Each Tablet.er, 1 EACH PO QID 05/04/14 Lorazepam (LORAZEPAM) 1 Mg Tablet, 1 MG PO BID, TABLET 05/04/14 Budesonide (BUDESONIDE) 0.5 Mg/2 Ml Ampul.neb, 0.5 MG IH BID 05/04/14 Past Medical History Medical History: cancer, coronary artery disease, diabetes, high cholesterol, heart attack, other Surgical History: cardiac cath, appendectomy, cholecystectomy, hysterectomy, stent LMP (females 10-50): hysterectomy Social History Smoking: quit less than 1 year Alcohol Use: none Drug Use: none Reviewed Nursing Reviewed: Vital Signs, Abn. 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 (01/06/19 22:29) Helicobacter Pylori (01/06/19:) D-Dimer (01/06/19 22:29) Ekg-Routine (01/06/19 22:29) Xr Chest 2v (01/06/19 22:29) Acetaminophen (Tylenol) (01/06/19 22:29) Ipratropium/Albuterol Sulfate (Duoneb 0. (01/06/19 22:32) Dexamethasone Sod Phosphate (Decadron) (01/06/19 22:32) Lorazepam (Ativan) (01/06/19 22:35) Acetaminophen (Tylenol) (01/06/19 22:54) Lorazepam (Ativan) (01/06/19 22:54) Water For Irrigation,Sterile (Water) (01/06/19 22:55) Ipratropium/Albuterol Sulfate (Duoneb 0. (01/06/19 23:02) Dexamethasone Sod Phosphate (Decadron) (01/06/19 23:02) Ct Abd/Pelvis Wo Iv Contrast (01/06/19 23:28) Morphine Sulfate (Morphine Sulfate) (01/06/19 23:29) Urinalysis (01/06/19 23:58) Amylase (01/06/19 23:58) Lipase (01/06/19 23:58) Vital Signs Date Time Temp Pulse Resp B/P (MAP) Pulse Ox O2 Delivery O2 Flow Rate FiO2 01/06/19 23:28 95 28 92 01/06/19 23:27 90 32 86 01/06/19 22:36 100.4 99 20 01/06/19 22:36 100.4 97 20 98 Venti Mask 01/06/19 22:36 100.4 100 20 159/72 (101) 98 Room Air 11/23/18 01:49 80 Administered Medications Medications (Trade) Dose Ordered Sig/Romulo Route PRN Reason Start Time Stop Time Status Last Admin Dose Admin Acetaminophen (Tylenol) 1,000 mg STAT STAT PO 01/06/19 22:29 01/06/19 22:31 DC 01/06/19 23:06 1,000 MG Albuterol/ Ipratropium (Duoneb 0.5 Mg-3 Mg/3 ml Soln) 3 ml STAT STAT IH 01/06/19 22:32 01/06/19 22:33 DC 01/06/19 23:29 3 ML Dexamethasone Sodium Phosphate (Decadron) 4 mg STAT STAT IH 01/06/19 22:32 01/06/19 22:33 DC 01/06/19 23:29 4 MG Lorazepam (Ativan) 2 mg STAT STAT PO 01/06/19 22:35 01/06/19 22:36 DC 01/06/19 23:07 2 MG Morphine Sulfate (Morphine Sulfate) 4 mg STAT STAT IV 01/06/19 23:29 01/06/19 23:30 DC 01/07/19 00:05 4 MG Laboratory Tests Test 01/06/19 22:40 White Blood Count 4.0 10^3/uL (4.5-11.0) L Red Blood Count 3.20 10^6/uL (4.00-5.20) L Hemoglobin 9.3 g/dL (12.0-15.0) L Hematocrit 28.0 % (36.0-46.0) L Mean Corpuscular Volume 87.5 fL (78-100) Mean Corpuscular Hemoglobin 29.1 pg (26-34) Mean Corpuscular Hemoglobin Concent 33.2 g/dL (33-37) Red Cell Distribution Width 14.8 % (11.5-14.5) H Platelet Count 132 10^3/uL (150-400) L Mean Platelet Volume 10.0 fL (7.8-11.0) Neutrophils (%) (Auto) 66.8 % (41.0-85.0) Lymphocytes (%) (Auto) 28.6 % (24.0-44.0) Monocytes (%) (Auto) 3.3 % (5.0-12.0) L Neutrophils # (Auto) 2.7 10^3/uL (1.8-7.7) Lymphocytes # (Auto) 1.1 10^3/uL (1.0-4.8) Monocytes # (Auto) 0.1 10^3/uL (0.3-0.8) L Absolute Immature Granulocyte (auto 0.01 10^3 u/L (0-2) Immature Granulocytes % 0.30 % (0.00-0.50) Eosinophils % 0.5 % (0.0-5.0) Basophils % 0.5 % (0.0-0.2) H Basophils # 0.0 10^3/uL (0.0-0.1) Eosinophil Count 0.0 10^3/uL (0.0-0.2) Prothrombin Time 10.1 SEC (9.4-11.5) Prothrombin Time INR (Non-Therap) 1.0 PTT 27.6 SEC (24.67-30.72) D-Dimer 1.14 mg/L (0.19-0.49) *H Sodium Level 135 mmol/L (132-145) Potassium Level 3.4 mmol/L (3.6-5.2) L Chloride Level 96.0 mmol/L (96-109) Carbon Dioxide Level 29.8 mmol/L (20.0-32) Anion Gap 12.6 Blood Urea Nitrogen 14 mg/dL (7-18) Creatinine 0.69 mg/dL (0.59-1.40) Estimated GFR () 100.4 (>/=60) BUN/Creatinine Ratio 20.0 Glucose Level 82 mg/dL (70-110) Calcium Level 8.9 mg/dL (8.4-10.5) Total Bilirubin 0.7 mg/dL (0.2-1.0) Aspartate Amino Transferase (AST) 25 U/L (0-35) Alanine Aminotransferase (ALT) 10 U/L (12-78) L Alkaline Phosphatase 95 U/L (50-136) Total Creatine Kinase 68 U/L (26-192) Troponin I < 0.02 ng/mL (0.00-0.05) Pro-B-Type Natriuretic Peptide 765 pg/mL (0-450) H Total Protein 6.5 g/dL (6.4-8.2) Albumin 2.5 g/dL (3.4-5.0) L Globulin 4.0 Amylase Level 22 U/L (25-115) L Lipase 57 U/L (114-286) L Helicobacter pylori Screen NEGATIVE (NEGATIVE) EKG/XRAY/CT/US EKG: NSR Course Sepsis Screening Results: Posi: POSITIVE SEPSIS RISK Duration or Total Time Spent w: 20 Vitals & review Data Vital Sign - Last 24 Hours 11/23/18 01/06/19 01/06/19 01/06/19 01:49 22:36 22:36 22:36 Temp 100.4 100.4 100.4 Pulse 80 100 97 99 Resp 20 20 20 B/P (MAP) 159/72 (101) Pulse Ox 98 98 O2 Delivery Room Air Venti Mask 01/06/19 01/06/19 23:27 23:28 Pulse 90 95 Resp 32 28 Pulse Ox 86 92 Laboratory Tests Test 01/06/19 22:40 White Blood Count 4.0 10^3/uL Red Blood Count 3.20 10^6/uL Hemoglobin 9.3 g/dL Hematocrit 28.0 % Mean Corpuscular Volume 87.5 fL Mean Corpuscular Hemoglobin 29.1 pg Mean Corpuscular Hemoglobin Concent 33.2 g/dL Red Cell Distribution Width 14.8 % Platelet Count 132 10^3/uL Mean Platelet Volume 10.0 fL Neutrophils (%) (Auto) 66.8 % Lymphocytes (%) (Auto) 28.6 % Monocytes (%) (Auto) 3.3 % Neutrophils # (Auto) 2.7 10^3/uL Lymphocytes # (Auto) 1.1 10^3/uL Monocytes # (Auto) 0.1 10^3/uL Absolute Immature Granulocyte (auto 0.01 10^3 u/L Immature Granulocytes % 0.30 % Eosinophils % 0.5 % Basophils % 0.5 % Basophils # 0.0 10^3/uL Eosinophil Count 0.0 10^3/uL Prothrombin Time 10.1 SEC Prothrombin Time INR (Non-Therap) 1.0 Activated Partial Thromboplast Time 27.6 SEC D-Dimer 1.14 mg/L Sodium Level 135 mmol/L Potassium Level 3.4 mmol/L Chloride Level 96.0 mmol/L Carbon Dioxide Level 29.8 mmol/L Anion Gap 12.6 Blood Urea Nitrogen 14 mg/dL Creatinine 0.69 mg/dL Estimated GFR () 100.4 BUN/Creatinine Ratio 20.0 Glucose Level 82 mg/dL Calcium Level 8.9 mg/dL Total Bilirubin 0.7 mg/dL Aspartate Amino Transf (AST/SGOT) 25 U/L Alanine Aminotransferase (ALT/SGPT) 10 U/L Alkaline Phosphatase 95 U/L Total Creatine Kinase 68 U/L Troponin I < 0.02 ng/mL Pro-B-Type Natriuretic Peptide 765 pg/mL Total Protein 6.5 g/dL Albumin 2.5 g/dL Globulin 4.0 Amylase Level 22 U/L Lipase 57 U/L Helicobacter pylori Screen NEGATIVE Sepsis Infection Criteria Pres: Suspected Infection O2 Sat by Pulse Oximetry: 92 Departure Disposition: ADMITTED INPATIENT Referrals: ADONIS YIN EQUIP TECH (PCP) PRIMARY CARE PROVIDER THI ALEXIS MD Jan 07, 2019 00:56
--- NOTE | 2019-01-07 01:11 | DIREP ---
PROCEDURE:CT ABDOMEN/PELVIS W/O CONTRAST COMPARISON:[facility], CT, CT ABD/PELVIS W/ CONTRAST, 07/18/2018, 11:35 AM. INDICATIONS:fever abdominal pain TECHNIQUE:Axial images were created through the abdomen and pelvis without intravenous contrast material. No oral contrast was administered. Sagittal and coronal reconstructions were performed from source images. FINDINGS: LUNG BASES:Small right pleural fluid. Fairly diffuse ground-glass in the lung bases with a 5 mm nodule seen along the right hemidiaphragm. LIVER:Volume redistribution and a nodular contour suggesting a clinical diagnosis of cirrhosis. There are confluent areas of diminished density in the right lobe of the liver which may suggest confluent fibrosis. There a few calcifications seen at segment 6 in 7 posteriorly of uncertain significance. Underlying hepatic lesion not excluded but no focal finding on noncontrast CT. BILIARY:Cholecystectomy, no intra or extrahepatic biliary dilation. PANCREAS:Unremarkable. SPLEEN:Nonenlarged, a few punctate granulomas are noted. The KIDNEYS:No renal mass on noncontrast exam. No hydronephrosis or collecting system stone identified. ADRENALS:Normal. AORTA/VASCULAR:Calcified atherosclerosis. No aneurysm. RETROPERITONEUM:No adenopathy or mass. BOWEL/MESENTERY:Gastrostomy tube. No evidence of obstruction. Appendix not visualized, no pericecal inflammatory changes to suggest appendicitis. ABDOMINAL WALL:Focal skin thickening at the right anterior pannus may suggest cellulitis. Mild anasarca. No mass or hernia. URINARY BLADDER: Inherently limited evaluation of the wall; unremarkable for level of distension. Mildly dilated. PELVIS:Status post hysterectomy, no adnexal mass. No adenopathy. BONES:No bony lesion or fracture. OTHER:No free air or fluid. CONCLUSION: 1. Focal skin thickening at the right anterior pannus may suggest cellulitis. No fluid collection to suggest abscess. 2. Small right pleural fluid. 3. Findings suggesting a clinical diagnosis of cirrhosis with possible confluent areas of fibrosis in the right lobe of the liver, please see above comment. Dictated by: Rebeca Fairchild MD on 01/07/2019 at 01:05 AM
[2019-01-07 01:40] VITALS: BP 192/84
--- NOTE | 2019-01-07 01:50 | NUR ---
Karolina Noyola has left [address] Cochran
[2019-01-07 01:58] LABS: BILIRUBIN,URINE NEGATIVE (NEGATIVE); UROBILINOGEN,URINE NORMAL (NEGATIVE)
[2019-01-07] MEDS ORDERED: CLEOCIN 600 MG-D5W-GALAXY 50 ML IV STA (02:07)
--- NOTE | 2019-01-07 02:08 | NUR ---
Sammie Noyola on phone with Dr. Cochran
[2019-01-07 02:28] LABS: APPEARANCE,URINE CLEAR (CLEAR); UA COLOR YELLOW (YELLOW)
--- NOTE | 2019-01-07 03:20 | NUR ---
Output Patient has an Output of 1500ml per Cath Bag
--- NOTE | 2019-01-07 03:31 | NUR ---
UPDATE PATIENT COMPLAINS OF PAIN TO ABDOMEN. NOTIFIED DR. ALEXIS.
[2019-01-07 03:40] VITALS: BP 163/85
[2019-01-07] MEDS ORDERED: SUBLIMAZE IV STA (04:54)
[2019-01-07] MEDS ORDERED: HYCET PO PRN (05:00)
[2019-01-07] MEDS ORDERED: CLEOCIN 600 MG-D5W-GALAXY 50 ML IV ONE (05:13)
[2019-01-07] MEDS ORDERED: SUBLIMAZE ONE (05:13)
--- NOTE | 2019-01-07 07:08 | NUR ---
REPORT REPORT RECEIVED VIA PHONE BY Mariann VARGAS RN. ASSUMED CARE OF PT
--- NOTE | 2019-01-07 07:10 | NUR ---
DEPART PATIENT TAKEN VIA STRETCHER TO MED SURG BY REYNOLD QUIROGA. REPORT CALLED TO REYNOLD LOVE. RELINQUISHED CARE.
--- NOTE | 2019-01-07 07:45 | NUR ---
DR. JOHNNY TURNER ON UNIT AND REPORT GIVEN TO HIM ABOUT PT. PT TO BE TRANSFERRED TO [facility] UPON ACCEPTANCE.
[2019-01-07] MEDS ORDERED: NORCO 10MG PO ONE ×2 (08:00→12:18)
[2019-01-07] MEDS: CLEOCIN 600 MG-D5W-GALAXY 50 ML IV SCH ×2 (08:39→14:39)
[2019-01-07] MEDS ORDERED: LOTRIMIN TP SCH (09:00)
[2019-01-07 10:00] VITALS: BP_SYST 183; BP_SYST 186; BP_DIAS 104; BP_DIAS 97
--- NOTE | 2019-01-07 10:22 | PCM.HP ---
History of Present Illness Reason for Visit: shortness of breath History of Present Illness Patient is a 73 F PMH of COPD, Parkinson's Disease, DM, CAD w/ stenting x 2, and Esophageal Carcinoma (on chemotherapy currently, s/p Trach/PEG) who presents with shortness of breath. Patient shortness of breath resolved with treatment in ER. Patient CXR negative. She is not wheezing or in any respiratory distress. Patient was found to have abdominal cellulitis in ER and has one documented fever. Patient admitted and started on IV abx. Her labs are consistent with Pancytopenia. Patient Oncologist in [place]. CT scan shows findings consistent with Cirrhosis and small right Pleural effusion. Patient was given pain medication and is comfortable during my evaluation. I discussed with patient/daughter her condition and likely need to transfer to see Oncology and patient/family agreeable. Patient is full CODE. Past Medical History Cardiac: CAD, CHF, HTN, MT Pulmonary: COPD Heme/Onc: Cancer Endocrine: Diabetes Past Surgical History: Appendectomy, Cholecystectomy, Other (LHC w/stenting x 2, CEA bilaterally) Past Social History Smoke: Quit Alcohol: none Drugs: None Lives: with Family Travel Hx EBOLA RISK:Travel to/contact w: No Is pt experiencing any Ebola s: No Review of Systems Constitutional: Fever; No: Chills Eyes: No: Conjunctivae inflammation, Eyelid inflammation ENT: No: Nose discharge, Nose congestion Respiratory: Cough, Shortness of breath, SOB with excertion, Wheezing Cardiovascular: No: Chest Pain, Palpitations, Edema Gastrointestinal: Abdominal Pain; No: Nausea, Vomiting Genitourinary: Hematuria, Retention Musculoskeletal: back pain; No: neck pain Skin: Lesions; No: Rash, Jaundice, Bruising Neurological: Weakness; No: Numbness, Incoordination, Change in speech, Confusion, Seizures Allergies: Coded Allergies: butorphanol (Verified Allergy, Severe, 01/22/17) pentazocine (Verified Allergy, Severe, 01/22/17) codeine (Verified Adverse Reaction, Intermediate, GI UPSET, 03/15/17) Scheduled Acetaminophen (Acetaminophen), 500 MG PO HS, (Reported) B Complex with Vitamin C (B-Complex with C), 1 EACH PO DAILY, (Reported) Budesonide (Budesonide), 0.5 MG IH BID, (Reported) Carbidopa/Levodopa (Carbidopa-Levo Er 25-100 Tab), 1 EACH PO QID, (Reported) Cholecalciferol (Vitamin D3) (Vitamin D3), 1 UNIT PO DAILY, (Reported) Clopidogrel Bisulfate (Plavix), 75 MG PO DAILY, (Reported) Duloxetine Hcl (Cymbalta), 60 MG PO DAILY, (Reported) Gabapentin (Neurontin), 400 MG PO QID, (Reported) Insulin Aspart (Novolog), 15 UNIT SQ TID, (Reported) Insulin Detemir (Levemir), 60 UNIT SQ HS, (Reported) Isosorbide Mononitrate (Isosorbide Mononitrate Er), 30 MG PO DAILY, (Reported) Lorazepam (Lorazepam), 1 MG PO BID, (Reported) Lorazepam (Lorazepam), 1 MG PO TID, (Reported) Metoprolol Tartrate (Lopresser 100MG), 100 MG PO DAILY, (Reported) Pravastatin Sodium (Pravastatin Sodium), 40 MG PO HS, (Reported) Ramipril 2.5MG (Altace 2.5MG), 2.5 MG PO DAILY, (Reported) Ticagrelor (Brilinta), 90 MG PO BID Tramadol Hcl (Tramadol Hcl), 50 MG PO BID, (Reported) Varenicline Tartrate (Chantix), 1 EACH PO BID Zolpidem Tartrate (Zolpidem Tartrate), 10 MG PO HS, (Reported) Scheduled PRN Fluticasone/Vilanterol (Breo Ellipta 100-25 Mcg INH), 1 EACH IH for SHORTNESS OF BREATH, (Reported) Miscellaneous Medications Arformoterol Tartrate (Brovana), 15 MCG IH, (Reported) Ipratropium/Albuterol Sulfate (Iprat-Albut 0.5-3(2.5) Mg/3 Ml), 3 ML IH, (Reported) VTE VTE Risk Total Score: 4 VTE Risk Score VTE Risk: Score 0-1 = Low Risk (Aggressive mobilization; early ambulation; no VTE prophylaxis required) Score 2: Moderate Risk (Intermittent/Pneumatic Compression Device OR Lovenox/Heparin/Coumadin) Score 3-4: High Risk (Intermittent/Pneumatic Compression Device AND Lovenox/Heparin/Coumadin) Score > or =5: Highest Risk (Intermittent/Pneumatic Compression Device AND Lovenox/Heparin/Coumadin) Antico:Hep/LMWH/Coum/Xarelto: No Mechanical device ordered: Yes VTE VTE Present on Admission: No Currently receiving anticoagul: No VTE Risk Total Score: 4 Antico:Hep/LMWH/Coum/Xarelto: No Mechanical device ordered: Yes Protocol for Platelet Monitori: Tx adjusted per protocol Exam Vital Signs Vital Signs Date Time Temp Pulse Resp B/P (MAP) Pulse Ox O2 Delivery O2 Flow Rate FiO2 01/07/19 10:00 98.5 77 20 186/97 (126) 100 Venti Mask 15.00 98.5 General Appearance: Alert, Oriented X3, Cooperative, No acute distress HEENT: Atraumatic, PERRLA, EOMI, Mucous membr. moist/pink, Other (s/p Tracheostomy) Respiratory: Clear to auscultation, Normal air movement Cardiovascular: Regular rate, Normal S1, Normal S2 Abdominal: Normal bowel sounds, Soft, No tenderness, Other (PEG in place, erythema surrounding) Extremities: No edema, Normal pulses, No tenderness/swelling Skin: Breakdown, Other (chronic pressure wounds of pelvic area) Neuro: Strength at 5/5 X4 ext, Normal tone, Sensation intact, Cranial nerves 3- 12 NL Psych/Mental Status: Mental status NL, Mood NL Assessment/Plan Assessment/Plan Assessment/Plan Patient is a 73 F PMH of COPD, Parkinson's Disease, DM, CAD w/ stenting x 2, and Esophageal Carcinoma (on chemotherapy currently, s/p Trach/PEG) who presents with shortness of breath. Patient History: Alzheimer's disease G8 SISTER, , Age:63 Asthma 19 CHILD 19 CHILD Cerebrovascular disorder G8 SISTER, , Age:60 years and older Diabetes mellitus G8 BROTHER, , Age:79 19 CHILD 19 CHILD FH: Parkinson's disease G8 BROTHER, , Age:52 Hypertension 32 MOTHER, , Age:74 33 FATHER, , Age:74 G8 BROTHER, , Age:79 G8 BROTHER, , Age:52 G8 SISTER, , Age:60 years and older 19 CHILD No Family History of: Chronic obstructive pulmonary disease Congestive heart failure Diabetes insipidus Parkinson's disease Plan 1. Abdominal Cellulitis: CT reviewed. Patient febrile. Cont IV abx. Transfer to higher acuity of care per family wishes. Cont pain control. 2. Esophageal Carcinoma: undergoing outpatient Chemo currently. Patient is Full CODE. Patient will need transfer to see Oncologist. 3. Pancytopenia: transfer to higher acuity of care. Symptoms likely 2/2 Chemotherapy. 4. Hypokalemia: replete 5. Parkinson's Disease: cont home meds 6. COPD: Nebs, O2 support PRN 7. CAD: no acute chest pain. 8. PPx: LE Alejandra MD Jan 07, 2019 10:22
[2019-01-07] MEDS ORDERED: POTASSIUM CHLORIDE PO STA (10:26)
[2019-01-07] MEDS ORDERED: DUONEB 0.5 MG-3 MG/3 ML SOLN IH PRN (10:30)
[2019-01-07] MEDS ORDERED: APRESOLINE IV PRN (10:30)
[2019-01-07] MEDS ORDERED: ZOFRAN IV PRN (10:30)
--- NOTE | 2019-01-07 10:30 | NUR ---
TRANSFER DR TURNER ON PHONE CONCERNING PTS TRANSFER. DR. SILVA ACCEPTED PT AT [facility]. AOD: JAIRO VO RN
--- NOTE | 2019-01-07 10:55 | PRM.DC ---
Discharge Summary Date of Discharge: Jan 07, 2018 Time of Request to Discharge: 10:45 Reason for Visit: shortness of breath Hospital Course Patient admitted with abdominal wall cellulitis and fever. Patient started on IV abx and given medications for pain. Patient comfortable but on lab evaluation, patient is Pancytopenic and CT findings suggestive of Cirrhosis. Overall, patient is chronically ill with multiple comorbidities. I discussed clinical findings with patient/daughter and they are agreeable to transfer to higher acuity of care for Oncological evaluation. I initiated transfer and discussed with Dr. Turner who accepted patient. Patient is stable and in no distress currently. Patient History: Alzheimer's disease G8 SISTER, , Age:63 Asthma 19 CHILD 19 CHILD Cerebrovascular disorder G8 SISTER, , Age:60 years and older Diabetes mellitus G8 BROTHER, , Age:79 19 CHILD 19 CHILD FH: Parkinson's disease G8 BROTHER, , Age:52 Hypertension 32 MOTHER, , Age:74 33 FATHER, , Age:74 G8 BROTHER, , Age:79 G8 BROTHER, , Age:52 G8 SISTER, , Age:60 years and older 19 CHILD No Family History of: Chronic obstructive pulmonary disease Congestive heart failure Diabetes insipidus Parkinson's disease General: Alert, Oriented X3, Cooperative, No acute distress HEENT: Atraumatic, PERRLA, EOMI, Mucous membr. moist/pink Neck: Supple, No JVD Lungs: Clear to auscultation, Normal air movement Heart: Regular rate, Normal S1, Normal S2 Abdomen: Normal bowel sounds, Soft Extremities: Normal pulses, No tenderness/swelling Skin: Other (chronic pressure wounds of pelvis) Neuro: Strength at 5/5 X4 ext, Normal tone, Sensation intact, Cranial nerves 3- 12 NL Psych/Mental Status: Mental status NL, Mood NL Scheduled Acetaminophen (Acetaminophen), 500 MG PO HS, (Reported) B Complex with Vitamin C (B-Complex with C), 1 EACH PO DAILY, (Reported) Budesonide (Budesonide), 0.5 MG IH BID, (Reported) Carbidopa/Levodopa (Carbidopa-Levo Er 25-100 Tab), 1 EACH PO QID, (Reported) Cholecalciferol (Vitamin D3) (Vitamin D3), 1 UNIT PO DAILY, (Reported) Clopidogrel Bisulfate (Plavix), 75 MG PO DAILY, (Reported) Duloxetine Hcl (Cymbalta), 60 MG PO DAILY, (Reported) Gabapentin (Neurontin), 400 MG PO QID, (Reported) Insulin Aspart (Novolog), 15 UNIT SQ TID, (Reported) Insulin Detemir (Levemir), 60 UNIT SQ HS, (Reported) Isosorbide Mononitrate (Isosorbide Mononitrate Er), 30 MG PO DAILY, (Reported) Lorazepam (Lorazepam), 1 MG PO BID, (Reported) Lorazepam (Lorazepam), 1 MG PO TID, (Reported) Metoprolol Tartrate (Lopresser 100MG), 100 MG PO DAILY, (Reported) Pravastatin Sodium (Pravastatin Sodium), 40 MG PO HS, (Reported) Ramipril 2.5MG (Altace 2.5MG), 2.5 MG PO DAILY, (Reported) Ticagrelor (Brilinta), 90 MG PO BID Tramadol Hcl (Tramadol Hcl), 50 MG PO BID, (Reported) Varenicline Tartrate (Chantix), 1 EACH PO BID Zolpidem Tartrate (Zolpidem Tartrate), 10 MG PO HS, (Reported) Scheduled PRN Fluticasone/Vilanterol (Breo Ellipta 100-25 Mcg INH), 1 EACH IH for SHORTNESS OF BREATH, (Reported) Miscellaneous Medications Arformoterol Tartrate (Brovana), 15 MCG IH, (Reported) Ipratropium/Albuterol Sulfate (Iprat-Albut 0.5-3(2.5) Mg/3 Ml), 3 ML IH, (Reported) Sepsis Evaluation @ Discharge Vital Sign - Last 24 Hours 11/23/18 01/06/19 01/06/19 01/06/19 01:49 22:36 22:36 22:36 Temp 100.4 100.4 100.4 Pulse 80 100 97 99 Resp 20 20 20 B/P (MAP) 159/72 (101) Pulse Ox 98 98 O2 Delivery Room Air Venti Mask 01/06/19 01/06/19 23:27 23:28 Pulse 90 95 Resp 32 28 Pulse Ox 86 92 Laboratory Tests Test 01/06/19 22:40 White Blood Count 4.0 10^3/uL Red Blood Count 3.20 10^6/uL Hemoglobin 9.3 g/dL Hematocrit 28.0 % Mean Corpuscular Volume 87.5 fL Mean Corpuscular Hemoglobin 29.1 pg Mean Corpuscular Hemoglobin Concent 33.2 g/dL Red Cell Distribution Width 14.8 % Platelet Count 132 10^3/uL Mean Platelet Volume 10.0 fL Neutrophils (%) (Auto) 66.8 % Lymphocytes (%) (Auto) 28.6 % Monocytes (%) (Auto) 3.3 % Neutrophils # (Auto) 2.7 10^3/uL Lymphocytes # (Auto) 1.1 10^3/uL Monocytes # (Auto) 0.1 10^3/uL Absolute Immature Granulocyte (auto 0.01 10^3 u/L Immature Granulocytes % 0.30 % Eosinophils % 0.5 % Basophils % 0.5 % Basophils # 0.0 10^3/uL Eosinophil Count 0.0 10^3/uL Prothrombin Time 10.1 SEC Prothrombin Time INR (Non-Therap) 1.0 Activated Partial Thromboplast Time 27.6 SEC D-Dimer 1.14 mg/L Sodium Level 135 mmol/L Potassium Level 3.4 mmol/L Chloride Level 96.0 mmol/L Carbon Dioxide Level 29.8 mmol/L Anion Gap 12.6 Blood Urea Nitrogen 14 mg/dL Creatinine 0.69 mg/dL Estimated GFR () 100.4 BUN/Creatinine Ratio 20.0 Glucose Level 82 mg/dL Calcium Level 8.9 mg/dL Total Bilirubin 0.7 mg/dL Aspartate Amino Transf (AST/SGOT) 25 U/L Alanine Aminotransferase (ALT/SGPT) 10 U/L Alkaline Phosphatase 95 U/L Total Creatine Kinase 68 U/L Troponin I < 0.02 ng/mL Pro-B-Type Natriuretic Peptide 765 pg/mL Total Protein 6.5 g/dL Albumin 2.5 g/dL Globulin 4.0 Amylase Level 22 U/L Lipase 57 U/L Helicobacter pylori Screen NEGATIVE Course Sepsis Screening Results: Posi: POSITIVE SEPSIS RISK Duration or Total Time Spent w: 20 Vitals & review Data Vital Sign - Last 24 Hours 11/23/18 01/06/19 01/06/19 01/06/19 01:49 22:36 22:36 22:36 Temp 100.4 100.4 100.4 Pulse 80 100 97 99 Resp 20 20 20 B/P (MAP) 159/72 (101) Pulse Ox 98 98 O2 Delivery Room Air Venti Mask 01/06/19 01/06/19 23:27 23:28 Pulse 90 95 Resp 32 28 Pulse Ox 86 92 Laboratory Tests Test 01/06/19 22:40 White Blood Count 4.0 10^3/uL Red Blood Count 3.20 10^6/uL Hemoglobin 9.3 g/dL Hematocrit 28.0 % Mean Corpuscular Volume 87.5 fL Mean Corpuscular Hemoglobin 29.1 pg Mean Corpuscular Hemoglobin Concent 33.2 g/dL Red Cell Distribution Width 14.8 % Platelet Count 132 10^3/uL Mean Platelet Volume 10.0 fL Neutrophils (%) (Auto) 66.8 % Lymphocytes (%) (Auto) 28.6 % Monocytes (%) (Auto) 3.3 % Neutrophils # (Auto) 2.7 10^3/uL Lymphocytes # (Auto) 1.1 10^3/uL Monocytes # (Auto) 0.1 10^3/uL Absolute Immature Granulocyte (auto 0.01 10^3 u/L Immature Granulocytes % 0.30 % Eosinophils % 0.5 % Basophils % 0.5 % Basophils # 0.0 10^3/uL Eosinophil Count 0.0 10^3/uL Prothrombin Time 10.1 SEC Prothrombin Time INR (Non-Therap) 1.0 Activated Partial Thromboplast Time 27.6 SEC D-Dimer 1.14 mg/L Sodium Level 135 mmol/L Potassium Level 3.4 mmol/L Chloride Level 96.0 mmol/L Carbon Dioxide Level 29.8 mmol/L Anion Gap 12.6 Blood Urea Nitrogen 14 mg/dL Creatinine 0.69 mg/dL Estimated GFR () 100.4 BUN/Creatinine Ratio 20.0 Glucose Level 82 mg/dL Calcium Level 8.9 mg/dL Total Bilirubin 0.7 mg/dL Aspartate Amino Transf (AST/SGOT) 25 U/L Alanine Aminotransferase (ALT/SGPT) 10 U/L Alkaline Phosphatase 95 U/L Total Creatine Kinase 68 U/L Troponin I < 0.02 ng/mL Pro-B-Type Natriuretic Peptide 765 pg/mL Total Protein 6.5 g/dL Albumin 2.5 g/dL Globulin 4.0 Amylase Level 22 U/L Lipase 57 U/L Helicobacter pylori Screen NEGATIVE Sepsis Infection Criteria Pres: Suspected Infection O2 Sat by Pulse Oximetry: 100 Oxygen Flow Rate: 15.00 Plan Discharge Date: Jan 07, 2019 Dicharge DX: Cellulitis, Fever, Pancytopenia Discharge Disposition: Stable Plan ok to d/c to [facility] medications: per med rec list Diet: peg feedings Activity: ambulate w/ assistance Further recs per accepting physicians LE TURNER MD Jan 07, 2019 10:55
[2019-01-07] MEDS ORDERED: SINEMET 25/100 ONE ×2 (12:12→16:20)
[2019-01-07] MEDS ORDERED: POTASSIUM CHLORIDE ONE (12:12)
[2019-01-07] MEDS: NEURONTIN PO SCH ×2 (12:13→16:15)
[2019-01-07] MEDS: SINEMET PO SCH ×2 (12:14→16:15)
[2019-01-07] MEDS: NORCO 10MG PO PRN ×2 (12:15→16:15)
[2019-01-07 12:26] VITALS: BP 179/96
[2019-01-07] MEDS ORDERED: NS 100ML 100 ML IV ONE (14:21)
[2019-01-07] MEDS ORDERED: WATER ONE (15:03)
[2019-01-07] MEDS ORDERED: LANOLIN HYDROUS TP ONE (15:19)
--- NOTE | 2019-01-07 15:25 | NUR ---
TRACH CARE TRACH CARE PERFORMED AT THIS TIME
--- NOTE | 2019-01-07 15:52 | NUR ---
[facility] ROOM SECURED FOR PT. PT TO GO TO ROOM A460. PT MADE AWARE. [facility] NOTIFIED.
--- NOTE | 2019-01-07 16:08 | NUR ---
[facility] UNABLE TO TRANSFER AT THIS TIME D/T TRANSFER FROM ER. WILL BE APPROX 3 HOURS
[2019-01-07 17:16] VITALS: BP 173/77
--- NOTE | 2019-01-07 19:01 | NUR ---
TRANSFER PT TRANSFERRED TO [facility]IA EMS AT THIS TIME. REPORT CALLED IN. SPOKE WITH REYNOLD FELIPE
[2019-01-07] MEDS ORDERED: PULMICORT IH SCH (21:00)
[2019-01-07] MEDS ORDERED: PEPCID IV SCH (21:00)
[2019-01-07] MEDS ORDERED: TYLENOL PO SCH (21:00)
[2019-01-08] MEDS ORDERED: ALTACE PO SCH (09:00)
[2019-01-08] MEDS ORDERED: IMDUR PO SCH (09:00)
[2019-01-08] MEDS ORDERED: VITAMIN D PO SCH (09:00)
== END 2019-01-07 18:50 | disposition short-term general hospital (02) | DRG 603 ==
LOC: EDSEX 22:28 → EDBD 22:28 → ER 22:28 → MS 01-07 02:35
PROVIDERS: ADMIT Internal Medicine; ATTEND Family Medicine
DX: L03.311 Cellulitis of abdominal wall (principal); C15.9 Malignant neoplasm of esophagus, unspecified; D61.818 Other pancytopenia; J44.9 Chronic obstructive pulmonary disease, unspecified; I25.10 Atherosclerotic heart disease of native coronary artery without angina pectoris; K74.60 Unspecified cirrhosis of liver; G20 Parkinson's disease; E87.6 Hypokalemia; E78.00 Pure hypercholesterolemia, unspecified; F41.9 Anxiety disorder, unspecified; E11.9 Type 2 diabetes mellitus without complications; L89.90 Pressure ulcer of unspecified site, unspecified stage; I11.0 Hypertensive heart disease with heart failure; I50.9 Heart failure, unspecified; Z81.8 Family history of other mental and behavioral disorders; Z82.3 Family history of stroke; Z83.3 Family history of diabetes mellitus; Z82.49 Family history of ischemic heart disease and other diseases of the circulatory system; Z79.899 Other long term (current) drug therapy; Z95.1 Presence of aortocoronary bypass graft; Z92.21 Personal history of antineoplastic chemotherapy; Z95.5 Presence of coronary angioplasty implant and graft; I25.2 Old myocardial infarction; Z90.49 Acquired absence of other specified parts of digestive tract; Z88.5 Allergy status to narcotic agent; Z88.8 Allergy status to other drugs, medicaments and biological substances; Z79.4 Long term (current) use of insulin; Z79.51 Long term (current) use of inhaled steroids; Z85.01 Personal history of malignant neoplasm of esophagus; Z87.891 Personal history of nicotine dependence; Z90.710 Acquired absence of both cervix and uterus
CPT/HCPCS: 36415; 71046; 74176; 80053; 81000; 82150; 82550; 82948; 83690; 83880; 84484; 85025; 85379; 85610; 85730; 86677; 87070; 93005; 94640; 99285; A4338; G0378; J1100; J2405; J3010; J7050; J7620; A6212; A9270

== ENCOUNTER → 2019-01-28 | Outpatient (CLI) | payer MEDICARE, MEDICAID | END | disposition home or self-care (01) | LOC: NPLAB 17:00 | PROVIDERS: ATTEND Nurse Practitioner Family | DX: T81.49XA Infection following a procedure, other surgical site, initial encounter (principal); Y83.8 Other surgical procedures as the cause of abnormal reaction of the patient, or of later complication, without mention of misadventure at the time of the procedure; Y92.89 Other specified places as the place of occurrence of the external cause | CPT/HCPCS: 87070; 87077; 87186 ==

== ENCOUNTER 2019-01-30 10:30 | Inpatient (IN) | payer MEDICARE, MEDICAID ==
[~2019-01-30] VITALS: Ht 157.5 cm; Wt 74.0 kg
[2019-01-30 10:30] VITALS: BP 144/92
[2019-01-30] MEDS ORDERED: TYLENOL PO STA (10:40)
[2019-01-30] MEDS ORDERED: TYLENOL PO ONE (10:49)
--- NOTE | 2019-01-30 10:51 | PCM.EKG ---
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: : 1945 Requested By: THI ALEXIS Order Number: [id number] Reading MD: Measurements Intervals [place] Rate: 96 P: 47 MO: 154 QRS: 9 QRSD: 74 T: -2 QT: 416 QTc: 525 Interpretive Statements Normal sinus rhythm Low voltage QRS Nonspecific T wave abnormality Prolonged QT Abnormal ECG Compared to ECG 01/06/2019 23:22:48 Low QRS voltage now present T-wave abnormality now present Prolonged QT interval now present Accelerated junctional rhythm no longer present Ventricular premature complex(es) no longer present ST (T wave) deviation no longer present Please click the below link to view image of tracing.
[2019-01-30 11:04] LABS: BASOPHIL % 0.2 % (0.0-0.2); EOSINOPHIL # 0.1 10^3/uL (0.0-0.2); EOSINOPHIL % 0.5 % (0.0-5.0); HEMOGLOBIN 8.7 g/dL (12.0-15.0); LYMPHOCYTES # 1.9 10^3/uL (1.0-4.8); LYMPHOCYTES % 20.3 % (24.0-44.0); MEAN CELL HGB 29.6 pg (26-34); MEAN CORP VOLUME 89.8 fL (78-100); MEAN PLATELET VOLUME 10.7 fL (7.8-11.0); MONOCYTES # 0.8 10^3/uL (0.3-0.8); MONOCYTES % 8.5 % (5.0-12.0); NEUTROPHIL # 6.4 10^3/uL (1.8-7.7); NEUTROPHILS % 70.2 % (41.0-85.0); PLATELET COUNT 184 10^3/uL (150-400); RED CELL DISTRIBUTION WIDTH 17.9 % (11.5-14.5); WHITE BLOOD CELL 9.1 10^3/uL (4.5-11.0)
[2019-01-30] MEDS ORDERED: ZOFRAN IV STA (11:20)
--- NOTE | 2019-01-30 11:27 | NUR ---
CRITICAL LAB D-DIMER 2.98, DOCTOR VANESA NOTIFIED.
[2019-01-30 11:29] LABS: ALANINE AMINOTRANSFERASE(ML) 18 U/L (12-78); ALKALINE PHOSPHATASE 93 U/L (50-136); ASPARTATE AMINO TRANSFERASE 24 U/L (0-35); CALCIUM 9.2 mg/dL (8.4-10.5); CARBON DIOXIDE 25.7 mmol/L (20.0-32); GLUCOSE 215 mg/dL (70-110)
--- NOTE | 2019-01-30 11:39 | DIREP ---
PROCEDURE:CT ABD/PELVIS WITHOUT CONTRAST TECHNIQUE:Axial cuts were obtained through the abdomen and pelvis without IV contrast. The images were viewed at lung and soft tissue settings. Sagittal and coronal reconstructions are provided. COMPARISON:[facility], CT, CT ABD/PELVIS W/O, 01/07/2019, 00:34 AM. INDICATIONS:ABDOMINAL PAIN, FEVER FINDINGS: LOWER CHEST:Interval development of a subpleural airspace infiltrate in the lateral aspect of the right lung base. LIVER:Nodular contour of the liver again noted compatible with cirrhosis. Re-demonstration of the peripheral calcifications posteriorly in the right lobe of liver. BILIARY:Cholecystectomy. PANCREAS:Normal. SPLEEN:Normal. KIDNEYS:No evidence of urinary calculi. No evidence of obstructive uropathy. Renal morphology appears unremarkable. ADRENALS:Normal. AORTA/VASCULAR:Atheromatous calcifications. RETROPERITONEUM:Normal. BOWEL/MESENTERY:Peg tube again noted. No evidence of bowel obstruction, free intraperitoneal air, or abscess. Residual oral contrast in the colon. ABDOMINAL WALL:Re-demonstration of these focal cutaneous thickening in the right lower pannus. PELVIS:Hysterectomy. Borderline distention urinary bladder BONES:Normal OTHER: The absence of IV contrast limits evaluation of the soft tissues. Mild patient motion artifact is present CONCLUSION: Interval development of a pneumonia in the right lung base. Cirrhosis. No acute intra-abdominal process demonstrated. No significant interval change Dictated by: Cordelia Kim M.D. on 01/30/2019 at 11:34 AM
--- NOTE | 2019-01-30 11:41 | DIREP ---
PROCEDURE:CHEST 1 VIEW COMPARISON:[facility], CR, XRAY CHEST 2 VWS, 01/06/2019, 10:47 PM. INDICATIONS:FEVER, CONFUSION, TRACH DISCHARGE FINDINGS: LUNGS/PLEURA:No confluent alveolar opacity is seen. Mild interstitial prominence is again noted. VASCULATURE:Normal. Unremarkable pulmonary vasculature. CARDIAC:Normal. No cardiac silhouette abnormality or cardiomegaly. MEDIASTINUM:Normal. No visible mass or adenopathy. BONES:Degenerative changes of the thoracic spine and both acromioclavicular joints noted incidentally. OTHER:The tracheostomy tube is a MediPort via the right internal jugular approach remaining good position in are unchanged. CONCLUSION: 1. No acute cardiopulmonary disease is demonstrated. Dictated by: Sravan Duffy M.D. on 01/30/2019 at 11:39 AM
[2019-01-30] MEDS ORDERED: ZOSYN 3.375 GRAM VIAL 3.375 GM in NS 100ML 100 ML IV STA (11:50)
[2019-01-30 12:00] VITALS: BP 151/52
[2019-01-30 12:09] LABS: BILIRUBIN,URINE NEGATIVE (NEGATIVE); UROBILINOGEN,URINE NORMAL (NEGATIVE)
[2019-01-30] MEDS ORDERED: ZOFRAN ONE (12:13)
[2019-01-30] MEDS ORDERED: ZOSYN 3.375 GRAM VIAL IV ONE (12:13)
[2019-01-30] MEDS ORDERED: NS 100ML 100 ML IV ONE (12:13)
[2019-01-30 12:19] LABS: APPEARANCE,URINE SLIGHTLY HAZY (CLEAR); UA COLOR YELLOW (YELLOW)
--- NOTE | 2019-01-30 13:06 | NUR ---
SHEREE DOCTOR VANESA ON THE PHONE WITH DOCTOR BENTLEY AT THIS TIME.
--- NOTE | 2019-01-30 13:45 | NUR ---
TO UNIT PT TO FLOOR FOR SERVICES OF DR. BENTLEY
[2019-01-30 14:00] VITALS: BP 103/40
[2019-01-30] MEDS ORDERED: WATER ONE ×2 (14:06→18:15)
[2019-01-30 14:12] VITALS: BP 98/42
--- NOTE | 2019-01-30 17:15 | NUR ---
PHOTO PHOTO TAKEN OF DECUB TO RIGHT HIP AND PLACED ON CHART.
[2019-01-30] MEDS: NS 1000ML 1,000 ML SCH ×2 (17:30→23:30)
[2019-01-30] MEDS ORDERED: ZOSYN 3.375 GM/50 ML IV SCH (18:00)
--- NOTE | 2019-01-30 19:09 | NUR ---
REPORT REPORT GIVEN TO ONCOMING SHIFT AT THIS TIME.
[2019-01-30] MEDS: MORPHINE SULFATE IV PRN ×2 (19:20→22:52)
[2019-01-30] MEDS: ZOSYN 3.375 GRAM VIAL 3.375 GM in NS 100ML 100 ML IV SCH (19:21)
[2019-01-30 19:35] VITALS: BP 150/63
[2019-01-30] MEDS ORDERED: DUONEB 0.5 MG-3 MG/3 ML SOLN IH SCH (20:00)
--- NOTE | 2019-01-30 20:04 | NUR ---
VANCOMYCIN RECEIVED ORDER FROM DR BENTLEY TO CHANGE VANCOMYCIN FROM Q12 TO Q24HRS
[2019-01-30] MEDS ORDERED: SINEMET 25/100 ONE (20:20)
[2019-01-30] MEDS ORDERED: NEURONTIN ONE (20:21)
[2019-01-30] MEDS ORDERED: NS 250ML 250 ML IV ONE ×2 (20:22→22:44)
[2019-01-30] MEDS: LOVENOX SQ SCH (20:34)
[2019-01-30] MEDS: ZITHROMAX 500 MG in NS 250ML 250 ML IV SCH (20:35)
[2019-01-30] MEDS: PULMICORT IH SCH (20:39)
[2019-01-30] MEDS: DUONEB 0.5 MG-3 MG/3 ML SOLN IH SCH (20:39)
[2019-01-30] MEDS ORDERED: NEURONTIN PO SCH (21:00)
[2019-01-30] MEDS ORDERED: SINEMET PO SCH (21:00)
[2019-01-30] MEDS: NEURONTIN PO SCH (21:00)
[2019-01-30] MEDS ORDERED: VANCOMYCIN HCL IV ONE (21:00)
[2019-01-30] MEDS ORDERED: NS IV ONE (21:00)
--- NOTE | 2019-01-30 21:01 | NUR ---
SCD'S PATIENT REFUSING TO WEAR SCD'S. STATING "THEY JUST HURT ME TOO MUCH I CAN'T STAND TO WEAR THEM" TEACHING GIVEN ON IMPORTANCE OF WEARING. PATIENT STATES "I WILL MAYBE TRY TO WEAR THEM LATER"
[2019-01-30] MEDS: SOLU-MEDROL IV SCH (22:01)
[2019-01-30] MEDS ORDERED: VANCOMYCIN HCL 1 GM ONE (22:44)
[2019-01-30] MEDS: VANCOMYCIN HCL 1 GM in NS 250ML 250 ML IV SCH (22:52)
--- NOTE | 2019-01-30 23:12 | PCM.HP ---
HISTORY & PHYSICAL HISTORY & PHYSICAL DATE OF ADMISSION: CHIEF COMPLAINT: H&P # [id number] HISTORY OF PRESENT ILLNESS: ALLERGIES: CURRENT MEDICATIONS: PAST MEDICAL HISTORY: SOCIAL HISTORY: FAMILY HISTORY: REVIEW OF SYSTEMS: PHYSICAL EXAMINATION: GENERAL: VITAL SIGNS: HEENT: NECK: LUNGS: HEART: ABDOMEN: EXTREMITIES: NEUROLOGIC: LABORATORY DATA: IMPRESSION: CARE PLAN: MANAN BENTLEY MD Jan 30, 2019 23:12
[2019-01-30] MEDS ORDERED: DEXTROSE 50%-WATER SYRINGE IV PRN (23:30)
[2019-01-30 23:33] VITALS: BP 144/63
[2019-01-31] MEDS: ZOSYN 3.375 GRAM VIAL 3.375 GM in NS 100ML 100 ML IV SCH ×4 (00:36→19:05)
--- NOTE | 2019-01-31 00:39 | HPH ---
ADMIT DATE: 01/30/2019 CHIEF COMPLAINT: Altered mental status and shortness of breath. HISTORY OF PRESENT ILLNESS: This is a 73-year-old female with a past medical history of hypertension, coronary artery disease and head and neck cancer. The patient does not know the full details of what type of cancer she has, but states that she is going [facility] [place] every other week for chemotherapy. 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 Her last chemotherapy was 1 week ago. She denies any current radiation. Her current symptoms started approximately 2 days ago according to family when the patient became obtunded for several hours. She then became slightly confused and that has been intermittent for the last day and a half. She has been more somnolent and lethargic during that time. She currently has a tracheostomy to trach collar. She has not been hypoxic, but has had some mild shortness of breath and minimal cough. During my interview and examination of the patient, she is stable, although she remains very weak. She is only able to communicate by covering her tracheostomy. She is fed through her percutaneous gastrostomy tube. She does have a remote history of COPD as well as carotid artery disease and coronary artery disease. She has been unable to take care of her activities of daily living for several weeks now secondary to her severe weakness. PAST MEDICAL HISTORY: 1. Head and neck cancer. 2. Diabetes mellitus type 2. 3. Coronary artery disease. 4. Hypertension. 5. Cerebrovascular disease. 6. COPD. 7. Chronic pain. 8. Severe generalized anxiety. 9. Hyperlipidemia. 10. Major depressive disorder. 11. Peripheral arterial disease. 12. Gastroesophageal reflux disease. 13. Osteoarthritis. 14. Dysphagia. MEDICATIONS: See admit medication reconciliation form. PAST SURGICAL HISTORY: 1. Appendectomy. 2. Hysterectomy. 3. Knee surgery. 4. Tonsillectomy. 5. Stents placed in coronary arteries. 6. Endarterectomy. ALLERGIES: BUTORPHANOL, CODEINE AND PENTAZOCINE. SOCIAL HISTORY: Alcohol, tobacco, recreational drugs-none. The patient lives in [place] with family. FAMILY HISTORY: Noncontributory. REVIEW OF SYSTEMS: GENERAL: Overall generalized weakness and fatigue over the last 48 hours. CARDIAC: Denies chest pain, orthopnea, PND or palpitations. RESPIRATORY: Positive for shortness of breath and mild cough. No hemoptysis. GASTROINTESTINAL: Denies nausea, vomiting, abdominal pain, diarrhea or constipation. GENITOURINARY: Denies dysuria, frequency, hematuria or nocturia. HEMATOLOGIC: No easy bleeding or bruising. ENDOCRINE: No recent weight loss or weight gain. No temperature intolerance. NEUROLOGIC: No headache, paresthesias or dizziness. PSYCHIATRIC: Denies depressive symptoms, but worsening anxiety over the last several weeks. MUSCULOSKELETAL: Overall weakness in generalized muscle groups. SKIN: Denies any rashes, skin lesions or areas of ecchymosis. OBJECTIVE: PHYSICAL EXAMINATION: VITAL SIGNS: Temperature is 100.4, pulse 100, respirations 18, blood pressure 144/92. GENERAL: This is an emaciated, weak female, in no acute distress. She appears older than stated age. HEENT: Atraumatic, normocephalic. Sclerae are clear and anicteric. Oral mucosa is dry. NECK: Tracheostomy in place. There is dried purulent mucus at trachea edge DICTATION ENDS HERE Vladimir Cochran MD DR: TREMAYNE/winnie JOB# [id number]
--- NOTE | 2019-01-31 00:42 | NUR ---
PAIN PATIENT COMPLAINING OF PAIN OF 10/10 [address] M[address] HAS BEEN GIVEN[address] DR BENTLEY NOTIFIED AND RECEIVED ORDER FOR DILAUDID 1MG Q3H PRN.
[2019-01-31] MEDS: DILAUDID IV PRN ×7 (00:48→22:48)
[2019-01-31] MEDS: DUONEB 0.5 MG-3 MG/3 ML SOLN IH SCH ×3 (01:56→08:17)
[2019-01-31 04:52] VITALS: BP 148/72
[2019-01-31] MEDS ORDERED: NS 100ML 100 ML IV ONE (04:54)
[2019-01-31] MEDS ORDERED: ZOSYN 3.375 GRAM VIAL IV ONE (04:54)
[2019-01-31 05:09] LABS: HEMOGLOBIN 8.4 g/dL (12.0-15.0); MEAN CELL HGB 29.4 pg (26-34); MEAN CELL HGB CONCENTRATION 32.7 g/dL (33-37); MEAN CORP VOLUME 89.9 fL (78-100); MEAN PLATELET VOLUME 10.9 fL (7.8-11.0); RED CELL DISTRIBUTION WIDTH 18.2 % (11.5-14.5); WHITE BLOOD CELL 5.9 10^3/uL (4.5-11.0)
[2019-01-31 05:25] LABS: CALCIUM 8.8 mg/dL (8.4-10.5)
[2019-01-31] MEDS: SOLU-MEDROL IV SCH ×3 (05:28→22:48)
--- NOTE | 2019-01-31 06:30 | NUR ---
REPORT RECEIVED REPORT AND ASSUMED CARE OF PT.
[2019-01-31] MEDS: HUMULIN R SQ SCH ×4 (07:47→21:56)
[2019-01-31 08:00] VITALS: BP 152/68
[2019-01-31] MEDS ORDERED: SINEMET 25/100 PO SCH (08:08)
[2019-01-31] MEDS: PULMICORT IH SCH (08:17)
[2019-01-31] MEDS: ALTACE PO SCH (08:47)
[2019-01-31] MEDS: PROTONIX IV IV SCH (08:47)
[2019-01-31] MEDS: IMDUR PO SCH (08:48)
[2019-01-31] MEDS: CYMBALTA PO SCH (08:49)
[2019-01-31] MEDS: NEURONTIN PO SCH ×4 (08:49→20:34)
[2019-01-31] MEDS: SINEMET 25/100 PO SCH ×4 (08:50→20:35)
[2019-01-31] MEDS ORDERED: PULMICORT IH SCH (09:06)
--- NOTE | 2019-01-31 10:40 | NUR ---
DISCHARGE PLAN CM VISITED WITH PT REGARDING D/C PLAN AND GOALS. PATIENT LIVES AT HER HOME AND HER CHILDREN LIVE WITH HER. SHE USES A WALKER WHEN AMBULATING IN THE HOME. SHE ALSO HAS A GLUCOMETER, CANE, W/C AND SHOWER CHAIR. SHE DOES HAVE AN OXYGEN CONCENTRATOR AND PORTABILITY SERVICED BY [employer] [facility] HER PCP IS FRANSISCO YIN. SHE IS CURRENTLY ON SERVICE WITH [facility]. DISCHARGE GOAL IS FOR PATIENT TO DISCHARGE HOME WITH CHILDREN AND [facility] TO FOLLOW. CM WILL CONTINUE TO MONITOR NEEDS OF PT.
[2019-01-31] MEDS: NS 1000ML 1,000 ML SCH (11:06)
--- NOTE | 2019-01-31 11:40 | NUR ---
IV CURRENT IV HAS INFILTRATED. IV SITE RESTARTED WITH #22 ANGIOCATH X1 ATTEMPT USING ASEPTIC TO LEFT FOREARM. SITE HAS GOOD BLOOD RETURN AND FLUSHES WELL.
[2019-01-31] MEDS ORDERED: LANTUS SQ STA (13:52)
--- NOTE | 2019-01-31 13:58 | PRM.PN ---
Subjective Subjective Date: Jan 31, 2019 Time: 13:52 Subjective A little better today. Much more alert. Complains of pain all over. Long hx of diffuse pain complaints. Breathing a little better. MS much closer to baseline. No other events. VTE VTE Risk Total Score: >5 VTE Risk Score VTE Risk: Score 0-1 = Low Risk (Aggressive mobilization; early ambulation; no VTE prophylaxis required) Score 2: Moderate Risk (Intermittent/Pneumatic Compression Device OR Lovenox/Heparin/Coumadin) Score 3-4: High Risk (Intermittent/Pneumatic Compression Device AND Lovenox/Heparin/Coumadin) Score > or =5: Highest Risk (Intermittent/Pneumatic Compression Device AND Lovenox/Heparin/Coumadin) Antico:Hep/LMWH/Coum/Xarelto: No Mechanical device ordered: Yes Review of Systems Constitutional: Fever Respiratory: Cough, Shortness of breath, SOB with excertion, Wheezing Gastrointestinal: Nausea, Vomiting, Abdominal Pain Genitourinary: Hematuria, Retention Musculoskeletal: back pain Skin: Lesions Neurological: Weakness, Confusion Allergies: Coded Allergies: butorphanol (Verified Allergy, Severe, 01/22/17) pentazocine (Verified Allergy, Severe, 01/22/17) codeine (Verified Adverse Reaction, Intermediate, GI UPSET, 03/15/17) Scheduled Budesonide (Budesonide), 0.5 MG IH BID, (Reported) Carbidopa/Levodopa (Carbidopa-Levo Er 25-100 Tab), 1 EACH PO QID, (Reported) Duloxetine Hcl (Cymbalta), 60 MG PO DAILY, (Reported) Gabapentin (Neurontin), 400 MG PO QID, (Reported) Isosorbide Mononitrate (Isosorbide Mononitrate Er), 30 MG PO DAILY, (Reported) Ramipril 2.5MG (Altace 2.5MG), 2.5 MG PO DAILY, (Reported) Scheduled PRN Fluticasone/Vilanterol (Breo Ellipta 100-25 Mcg INH), 1 EACH IH for SHORTNESS OF BREATH, (Reported) Miscellaneous Medications Ipratropium/Albuterol Sulfate (Iprat-Albut 0.5-3(2.5) Mg/3 Ml), 3 ML IH, (Reported) Objective Vitals and I/O Vital Sign - Last 24 Hours 01/30/19 01/30/19 01/30/19 01/30/19 14:00 14:00 14:12 14:13 Temp 98.2 100.4 Pulse 82 75 75 Resp 20 17 17 B/P (MAP) 103/40 (61) 98/42 (60) Pulse Ox 94 94 O2 Delivery Trach Collar Room Air Room Air O2 Flow Rate 30.00 01/30/19 01/30/19 01/30/19 01/30/19 14:36 14:43 18:00 19:35 Temp 98.6 Pulse 78 81 87 Resp 20 20 20 20 B/P (MAP) 150/63 (92) Pulse Ox 96 96 93 95 O2 Delivery Trach Collar Trach Collar Trach Collar O2 Flow Rate 8.00 7.00 FiO2 30 30 01/30/19 01/30/19 01/30/19 01/30/19 20:40 20:43 21:08 23:33 Temp 99.1 Pulse 80 82 95 Resp 20 20 18 B/P (MAP) 144/63 (90) Pulse Ox 94 94 91 O2 Delivery Trach Collar Trach Collar 01/31/19 01/31/19 01/31/19 01/31/19 04:52 08:00 08:17 08:18 Temp 98.3 98.6 Pulse 80 86 71 71 Resp 20 20 18 18 B/P (MAP) 148/72 (97) 152/68 (96) Pulse Ox 96 94 96 96 O2 Delivery Trach Collar Room Air Room Air FiO2 21 01/31/19 01/31/19 01/31/19 01/31/19 08:28 08:49 08:49 10:00 Pulse 75 Resp 16 B/P (MAP) 154/68 154/68 Pulse Ox 95 O2 Delivery Room Air Intake and Output 01/30/19 01/30/19 01/31/19 15:00 23:00 07:00 Intake Total 750 ml 200 ml Output Total 1900 ml Balance 750 ml -1700 ml General: Alert, Oriented X3, Cooperative, No acute distress HEENT: Atraumatic, PERRLA, EOMI, Mucous membr. moist/pink Lungs: Clear to auscultation, Normal air movement Heart: Regular rate, Normal S1, Normal S2 Abdomen: Normal bowel sounds, Soft Extremities: Normal pulses, No tenderness/swelling Neuro: Strength at 5/5 X4 ext, Normal tone, Sensation intact, Cranial nerves 3- 12 NL Psych/Mental Status: Mental status NL, Mood NL All Results(Lab/Rad) Laboratory Tests Test 01/31/19 04:40 01/31/19 07:24 01/31/19 11:52 White Blood Count 5.9 10^3/uL Red Blood Count 2.86 10^6/uL Hemoglobin 8.4 g/dL Hematocrit 25.7 % Mean Corpuscular Volume 89.9 fL Mean Corpuscular Hemoglobin 29.4 pg Mean Corpuscular Hemoglobin Concent 32.7 g/dL Red Cell Distribution Width 18.2 % Platelet Count 195 10^3/uL Mean Platelet Volume 10.9 fL Sodium Level 135 mmol/L Potassium Level 4.7 mmol/L Chloride Level 100.0 mmol/L Carbon Dioxide Level 25.0 mmol/L Anion Gap 14.7 Blood Urea Nitrogen 13 mg/dL Creatinine 0.82 mg/dL Estimated GFR () 82.2 BUN/Creatinine Ratio 15.0 Glucose Level 335 mg/dL Calcium Level 8.8 mg/dL Total Bilirubin 0.5 mg/dL Aspartate Amino Transf (AST/SGOT) 24 U/L Alanine Aminotransferase (ALT/SGPT) 13 U/L Alkaline Phosphatase 90 U/L Total Protein 6.8 g/dL Albumin 2.2 g/dL Globulin 4.6 Bedside Glucose 349 360 Current Medications Medications (Trade) Dose Ordered Sig/Romulo Route PRN Reason Start Time Stop Time Status Last Admin Dose Admin Acetaminophen (Tylenol) 1,000 mg STAT STAT PO 01/30/19 10:40 01/30/19 10:41 DC 01/30/19 10:59 Acetaminophen (Tylenol) 500 mg STK-MED ONCE PO 01/30/19 10:49 01/30/19 10:50 DC Ondansetron HCl (Zofran) 4 mg STAT STAT IV 01/30/19 11:20 01/30/19 11:21 DC 01/30/19 12:37 Piperacillin Sod/ Tazobactam Sod 3.375 gm/Sodium Chloride 100 ml @ 100 mls/hr STAT STAT IV 01/30/19 11:50 01/30/19 13:28 DC 01/30/19 12:37 Sodium Chloride 100 ml @ ud STK-MED ONCE IV 01/30/19 12:13 01/30/19 12:15 DC Ondansetron HCl (Zofran) 4 mg STK-MED ONCE .ROUTE 01/30/19 12:13 01/30/19 12:15 DC Piperacillin Sod/ Tazobactam Sod (Zosyn 3.375 Gram Vial) 3.375 gm STK-MED ONCE IV 01/30/19 12:13 01/30/19 12:15 DC Sodium Chloride 1,000 ml @ 100 mls/hr Q10H IV 01/30/19 13:30 03/01/19 13:29 01/31/19 11:06 Piperacillin/ Tazobactam/ Dextrose (Zosyn 3.375 Gm/ 50 ml) 3.375 gm Q6 IV 01/30/19 18:00 01/30/19 13:32 DC Vancomycin HCl 1 gm/Sodium Chloride 300 ml @ 175 mls/hr Q12HR ONCE IV 01/30/19 21:00 01/30/19 19:59 DC Piperacillin Sod/ Tazobactam Sod 3.375 gm/Sodium Chloride 100 ml @ 100 mls/hr Q6H IV 01/30/19 18:00 03/01/19 17:59 01/31/19 12:29 Sterile Water (Water) 1,000 ml STK-MED ONCE .ROUTE 01/30/19 14:06 01/30/19 14:08 DC Sterile Water (Water) 1,000 ml STK-MED ONCE .ROUTE 01/30/19 18:15 01/30/19 18:17 DC Morphine Sulfate (Morphine Sulfate) 4 mg Q4H PRN IV PAIN 4 - 6 01/30/19 19:00 03/01/19 18:59 01/30/19 22:52 Budesonide (Pulmicort) 0.5 mg BID IH 01/30/19 21:00 01/31/19 08:53 DC 01/31/19 08:17 Carbidopa/Levodopa (Sinemet Cr 25-100 Tablet) 1 each QID PO 01/30/19 21:00 01/31/19 08:08 DC 01/30/19 20:35 Gabapentin (Neurontin) 400 mg QID PO 01/30/19 21:00 01/30/19 21:03 DC 01/30/19 20:36 Albuterol/ Ipratropium (Duoneb 0.5 Mg-3 Mg/3 ml Soln) 3 ml Q4 IH 01/30/19 20:00 01/30/19 19:09 DC Isosorbide Mononitrate (Imdur) 30 mg DAILY PO 01/31/19 09:00 03/02/19 08:59 01/31/19 08:49 Ramipril (Altace) 2.5 mg DAILY PO 01/31/19 09:00 03/02/19 08:59 01/31/19 08:49 Duloxetine HCl (Cymbalta) 60 mg DAILY PO 01/31/19 09:00 03/02/19 08:59 01/31/19 08:49 Albuterol/ Ipratropium (Duoneb 0.5 Mg-3 Mg/3 ml Soln) 3 ml RTQ4 01/30/19 21:00 01/31/19 08:41 DC 01/31/19 08:17 Azithromycin 500 mg/Sodium Chloride 250 ml @ 175 mls/hr Q24HRS IV 01/30/19 19:30 03/01/19 19:29 01/30/19 20:36 Enoxaparin Sodium (Lovenox) 40 mg Q24HRS SQ 01/30/19 19:30 03/01/19 19:29 01/30/19 20:35 Pantoprazole Sodium (Protonix Iv) 40 mg DAILY IV 01/31/19 09:00 03/02/19 08:59 01/31/19 08:49 Methylprednisolone Sodium Succinate (Solu-Medrol) 40 mg Q8HR IV 01/30/19 22:00 03/01/19 21:59 01/31/19 05:31 Vancomycin HCl 1 gm/Sodium Chloride 250 ml @ 175 mls/hr Q24HRS IV 01/30/19 23:00 03/01/19 22:59 01/30/19 22:52 Carbidopa/Levodopa (Sinemet 25/100) 1 each STK-MED ONCE .ROUTE 01/30/19 20:20 01/30/19 20:22 DC Gabapentin (Neurontin) 400 mg STK-MED ONCE .ROUTE 01/30/19 20:21 01/30/19 20:22 DC Sodium Chloride 250 ml @ ud STK-MED ONCE IV 01/30/19 20:22 01/30/19 20:23 DC Gabapentin (Neurontin) 400 mg QID PO 01/30/19 21:00 03/01/19 20:59 01/31/19 13:10 Vancomycin HCl 1 ml @ ud STK-MED ONCE .ROUTE 01/30/19 22:44 01/30/19 22:46 DC Sodium Chloride 250 ml @ ud STK-MED ONCE IV 01/30/19 22:44 01/30/19 22:46 DC Insulin Human Regular (Humulin R) Give 30 minutes before meal ACHS SQ 01/31/19 07:30 03/02/19 07:29 01/31/19 12:27 Dextrose (Dextrose 50%-Water Syringe) 25 ml STAT PRN IV HYPOGLYCEMIA 01/30/19 23:30 03/01/19 23:29 Hydromorphone HCl (Dilaudid) 1 mg Q3HR PRN IV PAIN 7 - 10 01/31/19 01:00 03/02/19 00:59 01/31/19 12:20 Sodium Chloride 100 ml @ ud STK-MED ONCE IV 01/31/19 04:54 01/31/19 04:56 DC Piperacillin Sod/ Tazobactam Sod (Zosyn 3.375 Gram Vial) 3.375 gm STK-MED ONCE IV 01/31/19 04:54 01/31/19 04:56 DC Carbidopa/Levodopa (Sinemet 25/100) 1 each QID PO 01/31/19 08:08 01/31/19 08:10 DC Carbidopa/Levodopa (Sinemet 25/100) 1 each QID PO 01/31/19 09:00 03/02/19 08:59 01/31/19 13:10 Albuterol/ Ipratropium (Duoneb 0.5 Mg-3 Mg/3 ml Soln) 3 ml RTQ4 PRN IH SHORTNESS OF BREATH 02/01/19 06:15 03/01/19 20:00 Budesonide (Pulmicort) 0.5 mg RTDAILY IH 01/31/19 09:06 01/31/19 09:07 DC Budesonide (Pulmicort) 0.5 mg RTDAILY IH 02/01/19 08:00 03/03/19 07:59 Cholestyramine Resin (Prevalite Packet) 4 gm TID PO 01/31/19 15:00 03/02/19 14:59 UNV Course Sepsis Screening Results: Posi: NEGATIVE Sepsis Qualifier/Stage: NO DEFINITE RISK Duration or Total Time Spent w: 17 min Vitals & review Data Vital Sign - Last 24 Hours 01/30/19 01/30/19 01/30/19 01/30/19 14:00 14:00 14:12 14:13 Temp 98.2 100.4 Pulse 82 75 75 Resp 20 17 17 B/P (MAP) 103/40 (61) 98/42 (60) Pulse Ox 94 94 O2 Delivery Trach Collar Room Air Room Air O2 Flow Rate 30.00 01/30/19 01/30/19 01/30/19 01/30/19 14:36 14:43 18:00 19:35 Temp 98.6 Pulse 78 81 87 Resp 20 20 20 20 B/P (MAP) 150/63 (92) Pulse Ox 96 96 93 95 O2 Delivery Trach Collar Trach Collar Trach Collar O2 Flow Rate 8.00 7.00 FiO2 30 30 01/30/19 01/30/19 01/30/19 01/30/19 20:40 20:43 21:08 23:33 Temp 99.1 Pulse 80 82 95 Resp 20 20 18 B/P (MAP) 144/63 (90) Pulse Ox 94 94 91 O2 Delivery Trach Collar Trach Collar 01/31/19 01/31/19 01/31/19 01/31/19 04:52 08:00 08:17 08:18 Temp 98.3 98.6 Pulse 80 86 71 71 Resp 20 20 18 18 B/P (MAP) 148/72 (97) 152/68 (96) Pulse Ox 96 94 96 96 O2 Delivery Trach Collar Room Air Room Air FiO2 21 01/31/19 01/31/19 01/31/19 01/31/19 08:28 08:49 08:49 10:00 Pulse 75 Resp 16 B/P (MAP) 154/68 154/68 Pulse Ox 95 O2 Delivery Room Air Intake and Output 01/30/19 01/30/19 01/31/19 15:00 23:00 07:00 Intake Total 750 ml 200 ml Output Total 1900 ml Balance 750 ml -1700 ml Laboratory Tests Test 01/30/19 10:48 01/30/19 11:45 01/31/19 04:40 01/31/19 07:24 White Blood Count 9.1 10^3/uL 5.9 10^3/uL Red Blood Count 2.94 10^6/uL 2.86 10^6/uL Hemoglobin 8.7 g/dL 8.4 g/dL Hematocrit 26.4 % 25.7 % Mean Corpuscular Volume 89.8 fL 89.9 fL Mean Corpuscular Hemoglobin 29.6 pg 29.4 pg Mean Corpuscular Hemoglobin Concent 33.0 g/dL 32.7 g/dL Red Cell Distribution Width 17.9 % 18.2 % Platelet Count 184 10^3/uL 195 10^3/uL Mean Platelet Volume 10.7 fL 10.9 fL Neutrophils (%) (Auto) 70.2 % Lymphocytes (%) (Auto) 20.3 % Monocytes (%) (Auto) 8.5 % Neutrophils # (Auto) 6.4 10^3/uL Lymphocytes # (Auto) 1.9 10^3/uL Monocytes # (Auto) 0.8 10^3/uL Absolute Immature Granulocyte (auto 0.03 10^3 u/L Immature Granulocytes % 0.30 % Eosinophils % 0.5 % Basophils % 0.2 % Basophils # 0.0 10^3/uL Blood Morphology Comment NORMAL MORPHOLOGY Eosinophil Count 0.1 10^3/uL Prothrombin Time 11.4 SEC Prothrombin Time INR (Non-Therap) 1.1 Activated Partial Thromboplast Time 31.3 SEC D-Dimer 2.98 mg/L Sodium Level 130 mmol/L 135 mmol/L Potassium Level 4.2 mmol/L 4.7 mmol/L Chloride Level 96.0 mmol/L 100.0 mmol/L Carbon Dioxide Level 25.7 mmol/L 25.0 mmol/L Anion Gap 12.5 14.7 Blood Urea Nitrogen 15 mg/dL 13 mg/dL Creatinine 0.86 mg/dL 0.82 mg/dL Estimated GFR () 77.8 82.2 BUN/Creatinine Ratio 17.0 15.0 Glucose Level 215 mg/dL 335 mg/dL Calcium Level 9.2 mg/dL 8.8 mg/dL Total Bilirubin 0.9 mg/dL 0.5 mg/dL Aspartate Amino Transf (AST/SGOT) 24 U/L 24 U/L Alanine Aminotransferase (ALT/SGPT) 18 U/L 13 U/L Alkaline Phosphatase 93 U/L 90 U/L Total Creatine Kinase 236 U/L Troponin I < 0.02 ng/mL Pro-B-Type Natriuretic Peptide 1067 pg/mL Total Protein 7.0 g/dL 6.8 g/dL Albumin 2.5 g/dL 2.2 g/dL Globulin 4.5 4.6 Amylase Level 13 U/L Lipase 25 U/L Helicobacter pylori Screen NEGATIVE Urine Collection Type VOID Urine Color YELLOW Urine Appearance SLIGHTLY HAZY Urine Bilirubin NEGATIVE MG/DL Urine Ketones NEGATIVE Urine Specific [place] 1.005 Urine pH 6 Urine Protein 30 mg/dL Urine Urobilinogen NORMAL Urine Nitrate NEGATIVE Urine Leukocyte Esterase NEGATIVE Urine Blood NEGATIVE Urine RBC NONE SEEN RBC/HPF Urine WBC 0-2 WBC/HPF Urine Squamous Epithelial Cells RARE #/HPF Urine Renal Epithelial Cells RARE #/HPF Urine Amorphous Sediment SMALL Urine Bacteria NONE SEEN Urine Glucose NORMAL Bedside Glucose 349 Test 01/31/19 11:52 Bedside Glucose 360 Current Medications Medications (Trade) Dose Ordered Sig/Romulo PRN Reason Start Time Stop Time Status Last Admin Albuterol/ Ipratropium (Duoneb 0.5 Mg-3 Mg/3 ml Soln) 3 ml RTQ4 PRN SHORTNESS OF BREATH 02/01/19 06:15 03/01/19 20:00 Azithromycin 500 mg/Sodium Chloride 250 ml @ 175 mls/hr Q24HRS 01/30/19 19:30 03/01/19 19:29 01/30/19 20:36 Budesonide (Pulmicort) 0.5 mg RTDAILY 02/01/19 08:00 03/03/19 07:59 Carbidopa/Levodopa (Sinemet 25/100) 1 each QID 01/31/19 09:00 03/02/19 08:59 01/31/19 13:10 Cholestyramine Resin (Prevalite Packet) 4 gm TID 01/31/19 15:00 03/02/19 14:59 UNV Dextrose (Dextrose 50%-Water Syringe) 25 ml STAT PRN HYPOGLYCEMIA 01/30/19 23:30 03/01/19 23:29 Duloxetine HCl (Cymbalta) 60 mg DAILY 01/31/19 09:00 03/02/19 08:59 01/31/19 08:49 Enoxaparin Sodium (Lovenox) 40 mg Q24HRS 01/30/19 19:30 03/01/19 19:29 01/30/19 20:35 Gabapentin (Neurontin) 400 mg QID 01/30/19 21:00 03/01/19 20:59 01/31/19 13:10 Hydromorphone HCl (Dilaudid) 1 mg Q3HR PRN PAIN 7 - 10 01/31/19 01:00 03/02/19 00:59 01/31/19 12:20 Insulin Human Regular (Humulin R) Give 30 minutes before meal ACHS 01/31/19 07:30 03/02/19 07:29 01/31/19 12:27 Isosorbide Mononitrate (Imdur) 30 mg DAILY 01/31/19 09:00 03/02/19 08:59 01/31/19 08:49 Methylprednisolone Sodium Succinate (Solu-Medrol) 40 mg Q8HR 01/30/19 22:00 03/01/19 21:59 01/31/19 05:31 Morphine Sulfate (Morphine Sulfate) 4 mg Q4H PRN PAIN 4 - 6 01/30/19 19:00 03/01/19 18:59 01/30/19 22:52 Pantoprazole Sodium (Protonix Iv) 40 mg DAILY 01/31/19 09:00 03/02/19 08:59 01/31/19 08:49 Piperacillin Sod/ Tazobactam Sod 3.375 gm/Sodium Chloride 100 ml @ 100 mls/hr Q6H 01/30/19 18:00 03/01/19 17:59 01/31/19 12:29 Ramipril (Altace) 2.5 mg DAILY 01/31/19 09:00 03/02/19 08:59 01/31/19 08:49 Sodium Chloride 1,000 ml @ 100 mls/hr Q10H 01/30/19 13:30 03/01/19 13:29 01/31/19 11:06 Vancomycin HCl 1 gm/Sodium Chloride 250 ml @ 175 mls/hr Q24HRS 01/30/19 23:00 03/01/19 22:59 01/30/19 22:52 Sepsis Infection Criteria Pres: Documented Infection LEVEL 1 SEPSIS INFECTION CRITE: ABX Therapy Cardiovascular Evidence: Not Assessed or None Hematologic Evidence: None/Not assessed Hepatic Evidence: None/Not assessed Metabolic Evidence: None/Not assessed Neurological Evidence: None/Not assessed Respiratory Evidence: None/Not assessed Renal Evidence: None/Not assessed O2 Sat by Pulse Oximetry: 95 Oxygen Flow Rate: 7.00 Assessment/Plan Assessment/Plan Assessment/Plan 1.) Altered Mental Status - Improved overnight with abx. Likely Toxic encephalopathy. - Cont abx and supportive care. 2.) Bilateral LL CAP - Sputum and blood cx pending. - Continue abx. - [employer]. 3.) R Hip Wound - Cx pending. - Continue abx for now. - Wound care to see. 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 - Rec holding this until stronger and over infection. MANAN BENTLEY MD Jan 31, 2019 13:58
[2019-01-31] MEDS: PREVALITE PACKET PO SCH ×2 (15:00→20:35)
[2019-01-31 17:10] VITALS: BP 154/69
--- NOTE | 2019-01-31 18:54 | NUR ---
REPORT REPORT GIVEN TO ONCOMING SHIFT.
[2019-01-31 20:23] VITALS: BP 163/85
[2019-01-31] MEDS: ZITHROMAX 500 MG in NS 250ML 250 ML IV SCH (20:32)
[2019-01-31] MEDS: LOVENOX SQ SCH (20:35)
[2019-02-01] MEDS: ZOSYN 3.375 GRAM VIAL 3.375 GM in NS 100ML 100 ML IV SCH ×4 (00:12→19:45)
[2019-02-01 00:31] VITALS: BP 149/74
[2019-02-01] MEDS: VANCOMYCIN HCL 1 GM in NS 250ML 250 ML IV SCH ×2 (01:34→23:08)
[2019-02-01] MEDS: DILAUDID IV PRN ×5 (01:39→20:53)
[2019-02-01 04:54] VITALS: BP 162/85
[2019-02-01] MEDS: NS 1000ML 1,000 ML SCH ×3 (05:18→15:30)
[2019-02-01] MEDS: SOLU-MEDROL IV SCH ×3 (05:48→20:21)
[2019-02-01 06:11] LABS: HEMOGLOBIN 7.9 g/dL (12.0-15.0); MEAN CELL HGB CONCENTRATION 32.5 g/dL (33-37); MEAN CORP VOLUME 89.3 fL (78-100); MEAN PLATELET VOLUME 10.3 fL (7.8-11.0); RED CELL DISTRIBUTION WIDTH 17.7 % (11.5-14.5); WHITE BLOOD CELL 8.7 10^3/uL (4.5-11.0)
[2019-02-01] MEDS ORDERED: DUONEB 0.5 MG-3 MG/3 ML SOLN IH PRN (06:15)
[2019-02-01 06:34] LABS: CALCIUM 8.9 mg/dL (8.4-10.5); CARBON DIOXIDE 25.2 mmol/L (20.0-32)
[2019-02-01] MEDS: HUMULIN R SQ SCH ×4 (07:27→21:00)
[2019-02-01 07:31] VITALS: BP 160/75
[2019-02-01] MEDS: PULMICORT IH SCH (08:11)
[2019-02-01] MEDS: PROTONIX IV IV SCH (08:47)
[2019-02-01] MEDS: NEURONTIN PO SCH ×4 (08:48→20:20)
[2019-02-01] MEDS: SINEMET 25/100 PO SCH ×4 (08:48→20:20)
[2019-02-01] MEDS: PREVALITE PACKET PO SCH ×3 (08:48→20:21)
[2019-02-01] MEDS: IMDUR PO SCH (08:48)
[2019-02-01] MEDS: CYMBALTA PO SCH (08:48)
[2019-02-01] MEDS: ALTACE PO SCH (08:50)
[2019-02-01] MEDS ORDERED: WATER ONE (08:53)
[2019-02-01] MEDS ORDERED: LANTUS SQ SCH (09:00)
--- NOTE | 2019-02-01 10:10 | NUR ---
STATUS PT STATING, "I WANT TO SEE THE DR SO I CAN TALK TO HIM ABOUT DISCHARGING ME AND I FEEL VERY UPSET." NO S/S OF DISTRESS NOTED. DR BENTLEY NOTIFIED ORDER RECEIVED ORDER FOR ATIVAN 1MG IV Q6 PRN FOR ANXIETY.
[2019-02-01] MEDS ORDERED: ATIVAN ONE (10:15)
[2019-02-01] MEDS ORDERED: ATIVAN IV ONE (10:30)
--- NOTE | 2019-02-01 14:03 | NUR ---
PORT PERIPHERAL IV ATTEMPTED X3, UNSUCCESSFUL. DR BENTLEY NOTIFIED, ORDER RECEIVED TO ACCESS PORT. PORT ACCESSED AT THIS TIME PER ASEPTIC TECHNIQUE.
[2019-02-01 14:50] VITALS: BP 176/88
--- NOTE | 2019-02-01 14:58 | PRM.PN ---
Subjective Subjective Date: Feb 01, 2019 Time: 14:52 Subjective Continues to improve. Much more anxious today. Not sleeping well, she states she is too anxious. Mental status continues to slowly improve. Very close to baseline. Breathing is a little better. No chest pain. Continues to lie on right side refusing to turn and alternate. VTE VTE Risk Total Score: >5 VTE Risk Score VTE Risk: Score 0-1 = Low Risk (Aggressive mobilization; early ambulation; no VTE prophylaxis required) Score 2: Moderate Risk (Intermittent/Pneumatic Compression Device OR Lovenox/Heparin/Coumadin) Score 3-4: High Risk (Intermittent/Pneumatic Compression Device AND Lovenox/Heparin/Coumadin) Score > or =5: Highest Risk (Intermittent/Pneumatic Compression Device AND Lovenox/Heparin/Coumadin) Antico:Hep/LMWH/Coum/Xarelto: No Mechanical device ordered: Yes Review of Systems Constitutional: Fever Respiratory: Cough, Shortness of breath, SOB with excertion, Wheezing; No: Hemoptysis, Pleuritic Pain, Sputum, Wheezing Cardiovascular: No: Chest Pain, Palpitations, Orthopnea, Paroxysmal Noc. Dyspnea, Edema, Lt Headedness, Other Gastrointestinal: Nausea; No: Vomiting, Abdominal Pain, Diarrhea, Constipation Genitourinary: No Dysuria, No Frequency, No Incontinence; Hematuria, Retention; No Other Musculoskeletal: back pain Skin: Lesions Neurological: Weakness, Confusion; No: Numbness, Incoordination, Change in speech, Seizures, Other Allergies: Coded Allergies: butorphanol (Verified Allergy, Severe, 01/22/17) pentazocine (Verified Allergy, Severe, 01/22/17) codeine (Verified Adverse Reaction, Intermediate, GI UPSET, 03/15/17) Scheduled Budesonide (Budesonide), 0.5 MG IH BID, (Reported) Carbidopa/Levodopa (Carbidopa-Levo Er 25-100 Tab), 1 EACH PO QID, (Reported) Duloxetine Hcl (Cymbalta), 60 MG PO DAILY, (Reported) Gabapentin (Neurontin), 400 MG PO QID, (Reported) Isosorbide Mononitrate (Isosorbide Mononitrate Er), 30 MG PO DAILY, (Reported) Ramipril 2.5MG (Altace 2.5MG), 2.5 MG PO DAILY, (Reported) Scheduled PRN Fluticasone/Vilanterol (Breo Ellipta 100-25 Mcg INH), 1 EACH IH for SHORTNESS OF BREATH, (Reported) Miscellaneous Medications Ipratropium/Albuterol Sulfate (Iprat-Albut 0.5-3(2.5) Mg/3 Ml), 3 ML IH, (Reported) Objective Vitals and I/O Vital Sign - Last 24 Hours 01/30/19 01/30/19 01/30/19 01/30/19 14:00 14:00 14:12 14:13 Temp 98.2 100.4 Pulse 82 75 75 Resp 20 17 17 B/P (MAP) 103/40 (61) 98/42 (60) Pulse Ox 94 94 O2 Delivery Trach Collar Room Air Room Air O2 Flow Rate 30.00 01/30/19 01/30/19 01/30/19 01/30/19 14:36 14:43 18:00 19:35 Temp 98.6 Pulse 78 81 87 Resp 20 20 20 20 B/P (MAP) 150/63 (92) Pulse Ox 96 96 93 95 O2 Delivery Trach Collar Trach Collar Trach Collar O2 Flow Rate 8.00 7.00 FiO2 30 30 01/30/19 01/30/19 01/30/19 01/30/19 20:40 20:43 21:08 23:33 Temp 99.1 Pulse 80 82 95 Resp 20 20 18 B/P (MAP) 144/63 (90) Pulse Ox 94 94 91 O2 Delivery Trach Collar Trach Collar 01/31/19 01/31/19 01/31/19 01/31/19 04:52 08:00 08:17 08:18 Temp 98.3 98.6 Pulse 80 86 71 71 Resp 20 20 18 18 B/P (MAP) 148/72 (97) 152/68 (96) Pulse Ox 96 94 96 96 O2 Delivery Trach Collar Room Air Room Air FiO2 21 01/31/19 01/31/19 01/31/19 01/31/19 08:28 08:49 08:49 10:00 Pulse 75 Resp 16 B/P (MAP) 154/68 154/68 Pulse Ox 95 O2 Delivery Room Air Intake and Output 01/30/19 01/30/19 01/31/19 15:00 23:00 07:00 Intake Total 750 ml 200 ml Output Total 1900 ml Balance 750 ml -1700 ml General: Alert, Oriented X3, Cooperative, No acute distress HEENT: Atraumatic, PERRLA, EOMI, Mucous membr. moist/pink Lungs: Clear to auscultation, Normal air movement Heart: Regular rate, Normal S1, Normal S2 Abdomen: Normal bowel sounds, Soft Extremities: Normal pulses, No tenderness/swelling Neuro: Strength at 5/5 X4 ext, Normal tone, Sensation intact, Cranial nerves 3- 12 NL Psych/Mental Status: Mental status NL, Mood NL All Results(Lab/Rad) Laboratory Tests Test 01/31/19 04:40 01/31/19 07:24 01/31/19 11:52 White Blood Count 5.9 10^3/uL Red Blood Count 2.86 10^6/uL Hemoglobin 8.4 g/dL Hematocrit 25.7 % Mean Corpuscular Volume 89.9 fL Mean Corpuscular Hemoglobin 29.4 pg Mean Corpuscular Hemoglobin Concent 32.7 g/dL Red Cell Distribution Width 18.2 % Platelet Count 195 10^3/uL Mean Platelet Volume 10.9 fL Sodium Level 135 mmol/L Potassium Level 4.7 mmol/L Chloride Level 100.0 mmol/L Carbon Dioxide Level 25.0 mmol/L Anion Gap 14.7 Blood Urea Nitrogen 13 mg/dL Creatinine 0.82 mg/dL Estimated GFR () 82.2 BUN/Creatinine Ratio 15.0 Glucose Level 335 mg/dL Calcium Level 8.8 mg/dL Total Bilirubin 0.5 mg/dL Aspartate Amino Transf (AST/SGOT) 24 U/L Alanine Aminotransferase (ALT/SGPT) 13 U/L Alkaline Phosphatase 90 U/L Total Protein 6.8 g/dL Albumin 2.2 g/dL Globulin 4.6 Bedside Glucose 349 360 Current Medications Medications (Trade) Dose Ordered Sig/Romulo Route PRN Reason Start Time Stop Time Status Last Admin Dose Admin Acetaminophen (Tylenol) 1,000 mg STAT STAT PO 01/30/19 10:40 01/30/19 10:41 DC 01/30/19 10:59 Acetaminophen (Tylenol) 500 mg STK-MED ONCE PO 01/30/19 10:49 01/30/19 10:50 DC Ondansetron HCl (Zofran) 4 mg STAT STAT IV 01/30/19 11:20 01/30/19 11:21 DC 01/30/19 12:37 Piperacillin Sod/ Tazobactam Sod 3.375 gm/Sodium Chloride 100 ml @ 100 mls/hr STAT STAT IV 01/30/19 11:50 01/30/19 13:28 DC 01/30/19 12:37 Sodium Chloride 100 ml @ ud STK-MED ONCE IV 01/30/19 12:13 01/30/19 12:15 DC Ondansetron HCl (Zofran) 4 mg STK-MED ONCE .ROUTE 01/30/19 12:13 01/30/19 12:15 DC Piperacillin Sod/ Tazobactam Sod (Zosyn 3.375 Gram Vial) 3.375 gm STK-MED ONCE IV 01/30/19 12:13 01/30/19 12:15 DC Sodium Chloride 1,000 ml @ 100 mls/hr Q10H IV 01/30/19 13:30 03/01/19 13:29 01/31/19 11:06 Piperacillin/ Tazobactam/ Dextrose (Zosyn 3.375 Gm/ 50 ml) 3.375 gm Q6 IV 01/30/19 18:00 01/30/19 13:32 DC Vancomycin HCl 1 gm/Sodium Chloride 300 ml @ 175 mls/hr Q12HR ONCE IV 01/30/19 21:00 01/30/19 19:59 DC Piperacillin Sod/ Tazobactam Sod 3.375 gm/Sodium Chloride 100 ml @ 100 mls/hr Q6H IV 01/30/19 18:00 03/01/19 17:59 01/31/19 12:29 Sterile Water (Water) 1,000 ml STK-MED ONCE .ROUTE 01/30/19 14:06 01/30/19 14:08 DC Sterile Water (Water) 1,000 ml STK-MED ONCE .ROUTE 01/30/19 18:15 01/30/19 18:17 DC Morphine Sulfate (Morphine Sulfate) 4 mg Q4H PRN IV PAIN 4 - 6 01/30/19 19:00 03/01/19 18:59 01/30/19 22:52 Budesonide (Pulmicort) 0.5 mg BID IH 01/30/19 21:00 01/31/19 08:53 DC 01/31/19 08:17 Carbidopa/Levodopa (Sinemet Cr 25-100 Tablet) 1 each QID PO 01/30/19 21:00 01/31/19 08:08 DC 01/30/19 20:35 Gabapentin (Neurontin) 400 mg QID PO 01/30/19 21:00 01/30/19 21:03 DC 01/30/19 20:36 Albuterol/ Ipratropium (Duoneb 0.5 Mg-3 Mg/3 ml Soln) 3 ml Q4 IH 01/30/19 20:00 01/30/19 19:09 DC Isosorbide Mononitrate (Imdur) 30 mg DAILY PO 01/31/19 09:00 03/02/19 08:59 01/31/19 08:49 Ramipril (Altace) 2.5 mg DAILY PO 01/31/19 09:00 03/02/19 08:59 01/31/19 08:49 Duloxetine HCl (Cymbalta) 60 mg DAILY PO 01/31/19 09:00 03/02/19 08:59 01/31/19 08:49 Albuterol/ Ipratropium (Duoneb 0.5 Mg-3 Mg/3 ml Soln) 3 ml RTQ4 IH 01/30/19 21:00 01/31/19 08:41 DC 01/31/19 08:17 Azithromycin 500 mg/Sodium Chloride 250 ml @ 175 mls/hr Q24HRS IV 01/30/19 19:30 03/01/19 19:29 01/30/19 20:36 Enoxaparin Sodium (Lovenox) 40 mg Q24HRS SQ 01/30/19 19:30 03/01/19 19:29 01/30/19 20:35 Pantoprazole Sodium (Protonix Iv) 40 mg DAILY IV 01/31/19 09:00 03/02/19 08:59 01/31/19 08:49 Methylprednisolone Sodium Succinate (Solu-Medrol) 40 mg Q8HR IV 01/30/19 22:00 03/01/19 21:59 01/31/19 05:31 Vancomycin HCl 1 gm/Sodium Chloride 250 ml @ 175 mls/hr Q24HRS IV 01/30/19 23:00 03/01/19 22:59 01/30/19 22:52 Carbidopa/Levodopa (Sinemet 25/100) 1 each STK-MED ONCE .ROUTE 01/30/19 20:20 01/30/19 20:22 DC Gabapentin (Neurontin) 400 mg STK-MED ONCE .ROUTE 01/30/19 20:21 01/30/19 20:22 DC Sodium Chloride 250 ml @ ud STK-MED ONCE IV 01/30/19 20:22 01/30/19 20:23 DC Gabapentin (Neurontin) 400 mg QID PO 01/30/19 21:00 03/01/19 20:59 01/31/19 13:10 Vancomycin HCl 1 ml @ ud STK-MED ONCE .ROUTE 01/30/19 22:44 01/30/19 22:46 DC Sodium Chloride 250 ml @ ud STK-MED ONCE IV 01/30/19 22:44 01/30/19 22:46 DC Insulin Human Regular (Humulin R) Give 30 minutes before meal ACHS SQ 01/31/19 07:30 03/02/19 07:29 01/31/19 12:27 Dextrose (Dextrose 50%-Water Syringe) 25 ml STAT PRN IV HYPOGLYCEMIA 01/30/19 23:30 03/01/19 23:29 Hydromorphone HCl (Dilaudid) 1 mg Q3HR PRN IV PAIN 7 - 10 01/31/19 01:00 03/02/19 00:59 01/31/19 12:20 Sodium Chloride 100 ml @ ud STK-MED ONCE IV 01/31/19 04:54 01/31/19 04:56 DC Piperacillin Sod/ Tazobactam Sod (Zosyn 3.375 Gram Vial) 3.375 gm STK-MED ONCE IV 01/31/19 04:54 01/31/19 04:56 DC Carbidopa/Levodopa (Sinemet 25/100) 1 each QID PO 01/31/19 08:08 01/31/19 08:10 DC Carbidopa/Levodopa (Sinemet 25/100) 1 each QID PO 01/31/19 09:00 03/02/19 08:59 01/31/19 13:10 Albuterol/ Ipratropium (Duoneb 0.5 Mg-3 Mg/3 ml Soln) 3 ml RTQ4 PRN IH SHORTNESS OF BREATH 02/01/19 06:15 03/01/19 20:00 Budesonide (Pulmicort) 0.5 mg RTDAILY IH 01/31/19 09:06 01/31/19 09:07 DC Budesonide (Pulmicort) 0.5 mg RTDAILY 02/01/19 08:00 03/03/19 07:59 Cholestyramine Resin (Prevalite Packet) 4 gm TID PO 01/31/19 15:00 03/02/19 14:59 UNV Course Sepsis Screening Results: Posi: NEGATIVE Sepsis Qualifier/Stage: NO DEFINITE RISK Duration or Total Time Spent w: 17 min Vitals & review Data Vital Sign - Last 24 Hours 01/30/19 01/30/19 01/30/19 01/30/19 14:00 14:00 14:12 14:13 Temp 98.2 100.4 Pulse 82 75 75 Resp 20 17 17 B/P (MAP) 103/40 (61) 98/42 (60) Pulse Ox 94 94 O2 Delivery Trach Collar Room Air Room Air O2 Flow Rate 30.00 01/30/19 01/30/19 01/30/19 01/30/19 14:36 14:43 18:00 19:35 Temp 98.6 Pulse 78 81 87 Resp 20 20 20 20 B/P (MAP) 150/63 (92) Pulse Ox 96 96 93 95 O2 Delivery Trach Collar Trach Collar Trach Collar O2 Flow Rate 8.00 7.00 FiO2 30 30 01/30/19 01/30/19 01/30/19 01/30/19 20:40 20:43 21:08 23:33 Temp 99.1 Pulse 80 82 95 Resp 20 20 18 B/P (MAP) 144/63 (90) Pulse Ox 94 94 91 O2 Delivery Trach Collar Trach Collar 01/31/19 01/31/19 01/31/19 01/31/19 04:52 08:00 08:17 08:18 Temp 98.3 98.6 Pulse 80 86 71 71 Resp 20 20 18 18 B/P (MAP) 148/72 (97) 152/68 (96) Pulse Ox 96 94 96 96 O2 Delivery Trach Collar Room Air Room Air FiO2 21 01/31/19 01/31/19 01/31/19 01/31/19 08:28 08:49 08:49 10:00 Pulse 75 Resp 16 B/P (MAP) 154/68 154/68 Pulse Ox 95 O2 Delivery Room Air Intake and Output 01/30/19 01/30/19 01/31/19 15:00 23:00 07:00 Intake Total 750 ml 200 ml Output Total 1900 ml Balance 750 ml -1700 ml Laboratory Tests Test 01/30/19 10:48 01/30/19 11:45 01/31/19 04:40 01/31/19 07:24 White Blood Count 9.1 10^3/uL 5.9 10^3/uL Red Blood Count 2.94 10^6/uL 2.86 10^6/uL Hemoglobin 8.7 g/dL 8.4 g/dL Hematocrit 26.4 % 25.7 % Mean Corpuscular Volume 89.8 fL 89.9 fL Mean Corpuscular Hemoglobin 29.6 pg 29.4 pg Mean Corpuscular Hemoglobin Concent 33.0 g/dL 32.7 g/dL Red Cell Distribution Width 17.9 % 18.2 % Platelet Count 184 10^3/uL 195 10^3/uL Mean Platelet Volume 10.7 fL 10.9 fL Neutrophils (%) (Auto) 70.2 % Lymphocytes (%) (Auto) 20.3 % Monocytes (%) (Auto) 8.5 % Neutrophils # (Auto) 6.4 10^3/uL Lymphocytes # (Auto) 1.9 10^3/uL Monocytes # (Auto) 0.8 10^3/uL Absolute Immature Granulocyte (auto 0.03 10^3 u/L Immature Granulocytes % 0.30 % Eosinophils % 0.5 % Basophils % 0.2 % Basophils # 0.0 10^3/uL Blood Morphology Comment NORMAL MORPHOLOGY Eosinophil Count 0.1 10^3/uL Prothrombin Time 11.4 SEC Prothrombin Time INR (Non-Therap) 1.1 Activated Partial Thromboplast Time 31.3 SEC D-Dimer 2.98 mg/L Sodium Level 130 mmol/L 135 mmol/L Potassium Level 4.2 mmol/L 4.7 mmol/L Chloride Level 96.0 mmol/L 100.0 mmol/L Carbon Dioxide Level 25.7 mmol/L 25.0 mmol/L Anion Gap 12.5 14.7 Blood Urea Nitrogen 15 mg/dL 13 mg/dL Creatinine 0.86 mg/dL 0.82 mg/dL Estimated GFR () 77.8 82.2 BUN/Creatinine Ratio 17.0 15.0 Glucose Level 215 mg/dL 335 mg/dL Calcium Level 9.2 mg/dL 8.8 mg/dL Total Bilirubin 0.9 mg/dL 0.5 mg/dL Aspartate Amino Transf (AST/SGOT) 24 U/L 24 U/L Alanine Aminotransferase (ALT/SGPT) 18 U/L 13 U/L Alkaline Phosphatase 93 U/L 90 U/L Total Creatine Kinase 236 U/L Troponin I < 0.02 ng/mL Pro-B-Type Natriuretic Peptide 1067 pg/mL Total Protein 7.0 g/dL 6.8 g/dL Albumin 2.5 g/dL 2.2 g/dL Globulin 4.5 4.6 Amylase Level 13 U/L Lipase 25 U/L Helicobacter pylori Screen NEGATIVE Urine Collection Type VOID Urine Color YELLOW Urine Appearance SLIGHTLY HAZY Urine Bilirubin NEGATIVE MG/DL Urine Ketones NEGATIVE Urine Specific [place] 1.005 Urine pH 6 Urine Protein 30 mg/dL Urine Urobilinogen NORMAL Urine Nitrate NEGATIVE Urine Leukocyte Esterase NEGATIVE Urine Blood NEGATIVE Urine RBC NONE SEEN RBC/HPF Urine WBC 0-2 WBC/HPF Urine Squamous Epithelial Cells RARE #/HPF Urine Renal Epithelial Cells RARE #/HPF Urine Amorphous Sediment SMALL Urine Bacteria NONE SEEN Urine Glucose NORMAL Bedside Glucose 349 Test 01/31/19 11:52 Bedside Glucose 360 Current Medications Medications (Trade) Dose Ordered Sig/Romulo PRN Reason Start Time Stop Time Status Last Admin Albuterol/ Ipratropium (Duoneb 0.5 Mg-3 Mg/3 ml Soln) 3 ml RTQ4 PRN SHORTNESS OF BREATH 02/01/19 06:15 03/01/19 20:00 Azithromycin 500 mg/Sodium Chloride 250 ml @ 175 mls/hr Q24HRS 01/30/19 19:30 03/01/19 19:29 01/30/19 20:36 Budesonide (Pulmicort) 0.5 mg RTDAILY 02/01/19 08:00 03/03/19 07:59 Carbidopa/Levodopa (Sinemet 25/100) 1 each QID 01/31/19 09:00 03/02/19 08:59 01/31/19 13:10 Cholestyramine Resin (Prevalite Packet) 4 gm TID 01/31/19 15:00 03/02/19 14:59 UNV Dextrose (Dextrose 50%-Water Syringe) 25 ml STAT PRN HYPOGLYCEMIA 01/30/19 23:30 03/01/19 23:29 Duloxetine HCl (Cymbalta) 60 mg DAILY 01/31/19 09:00 03/02/19 08:59 01/31/19 08:49 Enoxaparin Sodium (Lovenox) 40 mg Q24HRS 01/30/19 19:30 03/01/19 19:29 01/30/19 20:35 Gabapentin (Neurontin) 400 mg QID 01/30/19 21:00 03/01/19 20:59 01/31/19 13:10 Hydromorphone HCl (Dilaudid) 1 mg Q3HR PRN PAIN 7 - 10 01/31/19 01:00 03/02/19 00:59 01/31/19 12:20 Insulin Human Regular (Humulin R) Give 30 minutes before meal ACHS 01/31/19 07:30 03/02/19 07:29 01/31/19 12:27 Isosorbide Mononitrate (Imdur) 30 mg DAILY 01/31/19 09:00 03/02/19 08:59 01/31/19 08:49 Methylprednisolone Sodium Succinate (Solu-Medrol) 40 mg Q8HR 01/30/19 22:00 03/01/19 21:59 01/31/19 05:31 Morphine Sulfate (Morphine Sulfate) 4 mg Q4H PRN PAIN 4 - 6 01/30/19 19:00 03/01/19 18:59 01/30/19 22:52 Pantoprazole Sodium (Protonix Iv) 40 mg DAILY 01/31/19 09:00 03/02/19 08:59 01/31/19 08:49 Piperacillin Sod/ Tazobactam Sod 3.375 gm/Sodium Chloride 100 ml @ 100 mls/hr Q6H 01/30/19 18:00 03/01/19 17:59 01/31/19 12:29 Ramipril (Altace) 2.5 mg DAILY 01/31/19 09:00 03/02/19 08:59 01/31/19 08:49 Sodium Chloride 1,000 ml @ 100 mls/hr Q10H 01/30/19 13:30 03/01/19 13:29 01/31/19 11:06 Vancomycin HCl 1 gm/Sodium Chloride 250 ml @ 175 mls/hr Q24HRS 01/30/19 23:00 03/01/19 22:59 01/30/19 22:52 Sepsis Infection Criteria Pres: Documented Infection LEVEL 1 SEPSIS INFECTION CRITE: ABX Therapy LEVEL 2-SIRS (LIST ALL THAT AP: None/Not assessed Cardiovascular Evidence: Not Assessed or None Hematologic Evidence: None/Not assessed Hepatic Evidence: None/Not assessed Metabolic Evidence: None/Not assessed Neurological Evidence: None/Not assessed Respiratory Evidence: None/Not assessed Renal Evidence: None/Not assessed O2 Sat by Pulse Oximetry: 98 Oxygen Flow Rate: 7.00 Assessment/Plan Assessment/Plan Assessment/Plan 1.) Altered Mental Status - Improved overnight with abx. Close to baseline today. Likely Toxic encephalopathy and possible contribution from malignancy. - Cont abx and supportive care. - Hopefully home tomorrow on PO abx. 2.) Bilateral LL CAP - Sputum and blood cx pending. Sx continue to slowly improve. Breathing much better. - Continue abx. - SHANK RANDER. 3.) R Hip Wound - Cx pending. Stable on Vancomycin and Gram Negative coverage. - Continue abx for now. - Wound care to see. - Will have Home Health work on this wound at home. 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 - Rec holding this until stronger and over infection. - Pt. would also be appropriate candidate for Hospice give her overall debility and progressive decline. 5.) DMT2 - Improved overall but still high, likely secondary to corticosteroids. - Increase basal insulin. - Continue SSI. 6.) HTN - Higher than baseline. Steroids not helping. - Continue home meds and titrate dosages. MANAN BENTLEY MD Feb 01, 2019 14:58
[2019-02-01] MEDS ORDERED: ATIVAN IV PRN (15:00)
[2019-02-01 20:11] VITALS: BP 176/86
[2019-02-01] MEDS: LOPRESSER PO SCH (20:20)
[2019-02-01] MEDS: LOVENOX SQ SCH (20:22)
[2019-02-01] MEDS: ZITHROMAX 500 MG in NS 250ML 250 ML IV SCH (20:52)
[2019-02-02 00:33] VITALS: BP 157/86
[2019-02-02] MEDS: ZOSYN 3.375 GRAM VIAL 3.375 GM in NS 100ML 100 ML IV SCH ×3 (00:51→12:00)
[2019-02-02] MEDS: NS 1000ML 1,000 ML SCH ×2 (01:30→11:30)
[2019-02-02 05:41] VITALS: BP 149/83
[2019-02-02 06:05] LABS: CALCIUM 8.8 mg/dL (8.4-10.5); CARBON DIOXIDE 23.6 mmol/L (20.0-32)
--- NOTE | 2019-02-02 06:51 | NUR ---
REPORT RECEIVED REPORT, ASSUMED CARE FOR PATIENT AT THIS TIME.
[2019-02-02 07:17] VITALS: BP 174/76
[2019-02-02] MEDS: HUMULIN R SQ SCH ×2 (07:30→11:30)
[2019-02-02] MEDS: PULMICORT IH SCH (08:41)
[2019-02-02] MEDS ORDERED: LANTUS SQ SCH (09:00)
[2019-02-02] MEDS ORDERED: ALTACE PO SCH (09:00)
[2019-02-02] MEDS: SINEMET 25/100 PO SCH ×2 (09:37→13:00)
[2019-02-02] MEDS: PROTONIX IV IV SCH (09:38)
[2019-02-02] MEDS: IMDUR PO SCH (09:39)
[2019-02-02] MEDS: SOLU-MEDROL IV SCH (09:39)
[2019-02-02] MEDS: LOPRESSER PO SCH (09:39)
[2019-02-02] MEDS: PREVALITE PACKET PO SCH (09:39)
[2019-02-02] MEDS: CYMBALTA PO SCH (09:39)
[2019-02-02] MEDS: NEURONTIN PO SCH ×2 (09:40→13:00)
[2019-02-02] MEDS ORDERED: WATER ONE (09:41)
--- NOTE | 2019-02-02 12:15 | NUR ---
UPON ENTERING THE ROOM PATIENTS TRACH IS NOT IN PLACE, LAYING ON THE BED. NOTIFIED RT AT THIS TIME. RESPIRATORY WAS UNABLE TO OBTAIN ACCESS WITH THE TRACH. NOTIFIED , WHO ADVISED TO CONSULT . WAS CONTACTED AT THIS TIME IN WHICH HE RESPONDED THAT HE "WAS ON HIS WAY." 0.5MG ATIVAN ADMINISTERED IV AT THIS TIME FOR ANXIETY. PATIENT IS STABLE WITH AN O2 SATURATION OF 96%. WILL CONTINUE TO MONITOR PATIENT.
--- NOTE | 2019-02-02 12:25 | NUR ---
WAS ABLE TO OBTAIN TRACH ACCESS AT THIS TIME. COLLAR SECURE. PATIENT O2 SATURATION IS 96%. RESPIRATIONS EVEN, NON-LABORED. NO S/S OF DISTRESS. CALL LIGHT IN REACH, BED IS LOW AND LOCKED. WILL CONTINUE TO MONITOR PATIENT. SUCTION AND EXTRA SUPPLIES STOCKED AT THE BEDSIDE. TRACH WORKING FOREMAN IS LOCATED ABOVE THE HEAD OF THE BED, TAPED TO THE WALL INSIDE OF A BIOHAZARD BAG.
[2019-02-02] MEDS ORDERED: AMOX1TAB63 PO (13:57)
--- NOTE | 2019-02-02 13:59 | PRM.DC ---
Post-OP Discharge Summary Date of Arrival on Unit: Jan 30, 2019 History of Present Illness Patient History: Alzheimer's disease G8 SISTER, , Age:63 Asthma 19 CHILD 19 CHILD Cerebrovascular disorder G8 SISTER, , Age:60 years and older Diabetes mellitus G8 BROTHER, , Age:79 19 CHILD 19 CHILD FH: Parkinson's disease G8 BROTHER, , Age:52 Hypertension 32 MOTHER, , Age:74 33 FATHER, , Age:74 G8 BROTHER, , Age:79 G8 BROTHER, , Age:52 G8 SISTER, , Age:60 years and older 19 CHILD No Family History of: Chronic obstructive pulmonary disease Congestive heart failure Diabetes insipidus Parkinson's disease Physician Notes: Please see discharge dictation. Objective Review IO, Exams,& Results Vital Signs Date Time Temp Pulse Resp B/P (MAP) Pulse Ox O2 Delivery O2 Flow Rate FiO2 02/02/19 10:56 Room Air 02/02/19 09:40 174/76 02/02/19 09:40 60 02/02/19 08:49 16 91 02/02/19 08:44 21 02/02/19 07:17 97.9 02/01/19 20:40 2.00 Intake and Output 02/02/19 07:00 Intake Total 360 ml Output Total 3300 ml Balance -2940 ml Intake Oral 360 ml Output Urine Total 3300 ml Laboratory Tests Test 01/31/19 17:05 01/31/19 20:45 02/01/19 05:24 02/01/19 12:19 Bedside Glucose 356 273 252 White Blood Count 8.7 10^3/uL Red Blood Count 2.72 10^6/uL Hemoglobin 7.9 g/dL Hematocrit 24.3 % Mean Corpuscular Volume 89.3 fL Mean Corpuscular Hemoglobin 29.0 pg Mean Corpuscular Hemoglobin Concent 32.5 g/dL Red Cell Distribution Width 17.7 % Platelet Count 239 10^3/uL Mean Platelet Volume 10.3 fL Sodium Level 135 mmol/L Potassium Level 4.1 mmol/L Chloride Level 101.0 mmol/L Carbon Dioxide Level 25.2 mmol/L Anion Gap 12.9 Blood Urea Nitrogen 14 mg/dL Creatinine 0.73 mg/dL Estimated GFR () 94.0 BUN/Creatinine Ratio 19.0 Glucose Level 214 mg/dL Calcium Level 8.9 mg/dL Total Bilirubin 0.4 mg/dL Aspartate Amino Transf (AST/SGOT) 19 U/L Alanine Aminotransferase (ALT/SGPT) 17 U/L Alkaline Phosphatase 82 U/L Total Protein 6.6 g/dL Albumin 2.2 g/dL Globulin 4.4 Test 02/01/19 16:46 02/01/19 20:38 02/02/19 05:04 Bedside Glucose 201 138 Sodium Level 140 mmol/L Potassium Level 4.0 mmol/L Chloride Level 107.0 mmol/L Carbon Dioxide Level 23.6 mmol/L Anion Gap 13.4 Blood Urea Nitrogen 14 mg/dL Creatinine 0.81 mg/dL Estimated GFR () 83.4 BUN/Creatinine Ratio 17.0 Glucose Level 140 mg/dL Calcium Level 8.8 mg/dL Total Bilirubin 0.3 mg/dL Aspartate Amino Transf (AST/SGOT) 20 U/L Alanine Aminotransferase (ALT/SGPT) 14 U/L Alkaline Phosphatase 74 U/L Total Protein 6.2 g/dL Albumin 2.1 g/dL Globulin 4.1 Current Medications Medications (Trade) Dose Ordered Sig/Romulo PRN Reason Start Time Stop Time Status Last Admin Albuterol/ Ipratropium (Duoneb 0.5 Mg-3 Mg/3 ml Soln) 3 ml RTQ4 PRN SHORTNESS OF BREATH 02/01/19 06:15 03/01/19 20:00 Azithromycin 500 mg/Sodium Chloride 250 ml @ 175 mls/hr Q24HRS 01/30/19 19:30 03/01/19 19:29 02/01/19 20:53 Budesonide (Pulmicort) 0.5 mg RTDAILY 02/01/19 08:00 03/03/19 07:59 02/02/19 08:41 Carbidopa/Levodopa (Sinemet 25/100) 1 each QID 01/31/19 09:00 03/02/19 08:59 02/02/19 09:40 Cholestyramine Resin (Prevalite Packet) 4 gm TID 01/31/19 15:00 03/02/19 14:59 02/02/19 09:40 Dextrose (Dextrose 50%-Water Syringe) 25 ml STAT PRN HYPOGLYCEMIA 01/30/19 23:30 03/01/19 23:29 Duloxetine HCl (Cymbalta) 60 mg DAILY 01/31/19 09:00 03/02/19 08:59 02/02/19 09:40 Enoxaparin Sodium (Lovenox) 40 mg Q24HRS 01/30/19 19:30 03/01/19 19:29 02/01/19 20:22 Gabapentin (Neurontin) 400 mg QID 01/30/19 21:00 03/01/19 20:59 02/02/19 09:40 Hydromorphone HCl (Dilaudid) 1 mg Q3HR PRN PAIN 7 - 10 01/31/19 01:00 03/02/19 00:59 02/01/19 20:53 Insulin Glargine (Lantus) 36 unit DAILY 02/02/19 09:00 03/04/19 08:59 Insulin Human Regular (Humulin R) Give 30 minutes before meal ACHS 01/31/19 07:30 03/02/19 07:29 02/01/19 17:00 Isosorbide Mononitrate (Imdur) 30 mg DAILY 01/31/19 09:00 03/02/19 08:59 02/02/19 09:40 Lorazepam (Ativan) 1 mg Q6 PRN ANXIETY 02/01/19 15:00 03/03/19 14:59 02/01/19 15:12 Methylprednisolone Sodium Succinate (Solu-Medrol) 40 mg BID 02/01/19 21:00 03/01/19 21:59 02/02/19 09:40 Metoprolol Tartrate (Lopresser) 25 mg BID 02/01/19 21:00 03/03/19 20:59 02/02/19 09:40 Morphine Sulfate (Morphine Sulfate) 4 mg Q4H PRN PAIN 4 - 6 01/30/19 19:00 03/01/19 18:59 01/30/19 22:52 Pantoprazole Sodium (Protonix Iv) 40 mg DAILY 01/31/19 09:00 03/02/19 08:59 02/02/19 09:40 Piperacillin Sod/ Tazobactam Sod 3.375 gm/Sodium Chloride 100 ml @ 100 mls/hr Q6H 01/30/19 18:00 03/01/19 17:59 02/02/19 06:01 Ramipril (Altace) 5 mg DAILY 02/02/19 09:00 03/04/19 08:59 02/02/19 09:40 Orders - MANAN BENTLEY MD [facility] Soft(Non-Dysphagia) (02/01/19 Dinner) Lorazepam (Ativan) (02/01/19 15:00) Insulin Glargine,Hum.Rec.Anlog (Lantus) (02/02/19 09:00) Methylprednisolone Sod Succ (Solu-Medrol (02/01/19 21:00) Ramipril (Altace) (02/02/19 09:00) Metoprolol Tartrate (Lopresser) (02/01/19 21:00) Surgical Consult (02/02/19 13:13) Discharge (02/02/19 13:53) Heart: Regular rate, Normal S1, Normal S2 Abdomen: Normal bowel sounds, Soft Lungs: Clear to auscultation, Normal air movement Course (Sepsis Review) Date of Reassessment: Feb 02, 2019 Time of Reassessment: 1200 Blood Pressure Systolic: 174 Blood Pressure Diastolic: 76 Diagnosis Problems/Diagnosis: (1) Chronic respiratory failure (2) Pneumonia (3) Chronic obstructive pulmonary disease (4) Hypoxemia Departure Discharge Date: Jan 30, 2019 Discharge Time: 1400 Discharge Disposition: med surg MANAN BENTLEY MD Feb 02, 2019 13:59
[2019-02-02 14:02] VITALS: BP 166/75
--- NOTE | 2019-02-02 14:17 | NUR ---
NOTIFIED PATIENTS DAUGHTER, JACLYN OF HER DISMISSAL FOR TRANSPORTATION AT THIS TIME.
[2019-02-02 14:18] VITALS: BP 166/75
--- NOTE | 2019-02-02 15:00 | NUR ---
DISCHARGE PATIENT BEING DISCHARGED HOME AT THIS TIME IN STABLE CONDITION. WOUND PICTURES WERE TAKEN OF RIGHT HIP, AND NEW DRESSING APPLIED WITH INITIALS, DATE, AND TIME. [facility] TO FOLLOW. EDUCATED PATIENT TO FOLLOW-UP WITH PCP IN THE NEXT WEEK. PATIENT WAS ASSISTED DOWNSTAIRS TO PRIVATE VEHICLE VIA WHEELCHAIR. RELINQUISHED CARE FOR PATIENT AT THIS TIME.
--- NOTE | 2019-02-02 20:21 | DSH ---
DATE OF DISCHARGE: 02/02/2019 ADMITTING DIAGNOSES: 1. Altered mental status. 2. Toxic encephalopathy. 3. Bilateral community-acquired pneumonia. 4. Laryngeal carcinoma. 5. Right hip wound. 6. Diabetes mellitus type 2. 7. Hypertension. 8. Severe protein-calorie malnutrition. DISCHARGE DIAGNOSES: 1. Altered mental status. 2. Toxic encephalopathy. 3. Bilateral community-acquired pneumonia. 4. Laryngeal carcinoma. 5. Right hip wound. 6. Diabetes mellitus type 2. 7. Hypertension. 8. Severe protein-calorie malnutrition. DISCHARGE DISPOSITION: Home with home health. DISCHARGE FOLLOWUP: Follow up with PCP in 1-2 weeks. DISCHARGE MEDICATIONS: 1. Augmentin 875 b.i.d. for 5 days. 2. Resume previous home medications. HOSPITAL COURSE: This is a 73-year-old female with a history of laryngeal cancer. She was admitted for mental status change and severe weakness. Upon admission, vital signs were largely stable, but she was having significant elevations of blood pressure. Laboratory evaluation showed mild hyperglycemia. Chest x-ray showed bilateral community-acquired pneumonia. She was started on IV antibiotics as well as corticosteroids and DuoNeb treatments. Her condition improved significantly over the next 24 hours and mental status was much improved. She was much more oriented. She did have significant anxiety and this was one of her major complaints. Otherwise, however, mental status returned back to baseline. I saw the patient on 02/02/2019 and she was doing well without complaints. She denies shortness of breath, cough or fever. Her vital signs were stable. Physical examination was within normal limits generally. Lungs were clear and heart was regular rate and rhythm. Abdomen was soft and nontender and extremities were without edema. Neurologic examination was intact. Laboratory evaluation was relatively stable. She was able to be discharged home in stable condition on outpatient antibiotics for her pneumonia as well as for the right hip wound. She was urged to stay off of the right hip whenever she is lying down. She was encouraged to follow up with her PCP within 2 weeks. Vladimir Cochran MD DR: TREMAYNE/winnie JOB# [id number]
--- NOTE | 2019-02-03 11:01 | CNH ---
DATE OF CONSULTATION: CHIEF COMPLAINT: Unexpected removal of tracheostomy tube. HISTORY OF PRESENT ILLNESS: This is a 73-year-old female who is currently admitted to the Med/Surg floor with multiple diagnoses. Apparently, her care is somewhat complex. She apparently has been receiving chemotherapy because of a laryngeal malignancy. She has a tracheostomy tube in place that was removed inadvertently and has been cleaned by the nursing and Respiratory staff prior to my arrival. It was subsequently replaced without difficulty. Her O2 sat remained safe throughout the time I was here. She is alert and cooperative, though she is requesting to be allowed to have more Ativan for sleep. I suggested that we delay that at this point. She apparently has multiple other comorbidities. PAST MEDICAL HISTORY: Per chart includes a previous laryngeal cancer, type 2 diabetes, coronary artery disease, hypertension, cerebrovascular disease, COPD, peripheral arterial disease, previous reflux. She is also known to have had previous colon polyps. PAST SURGICAL HISTORY: Includes appendectomy, hysterectomy, knee surgery, tonsillectomy, coronary artery stenting and endarterectomy, carotid. She is currently a MediPort in place, tracheostomy tube in place and a PEG tube in place. ALLERGIES: Per chart include BUTORPHANOL, CODEINE , Pentazocine OUTPATIENT MEDICATIONS: Not currently available. INPATIENT MEDICATIONS: Per AUG. SOCIAL HISTORY: Per chart is negative for any recent alcohol, tobacco or illicit drug use. FAMILY HISTORY: Essentially noncontributory. REVIEW OF SYSTEMS: Difficult to obtain at this time because of the patient's status. PHYSICAL EXAMINATION: GENERAL: This is an alert and pleasant 73-year-old female. She was initially in some distress because of what appears to be air hunger. Had trach tube placement. She is conversational and appropriate. VITAL SIGNS: Last temperature is 97.9, pulse 60, respiratory rate 16, last blood pressure is 174/76. HEENT: Normocephalic. NECK: Initially shows an open visualized patent tracheostomy tube tract. Subsequently, has a tube placed in it. HEART: Essentially regular rate and rhythm. LUNGS: Clear bilaterally. ABDOMEN: The bowel sounds are positive, nontender. PEG tube is intact. EXTREMITIES: Show positive radial pulses. NEUROLOGIC: She has no acute lateralizing signs. She has appropriate motion of upper extremities, though she is in bed. SKIN AND INTEGUMENT: Visualized, just warm and dry. LABORATORY STUDIES: Labs from yesterday show white count 8.7, hemoglobin 7.9, platelet count 239. Chemistry shows BUN of 14, creatinine 0.81. Her last albumin is 2.1. ASSESSMENT: 1. Trach status with inadvertent removal. 2. Known history of malignancy. 3. MediPort in place. 4. History of diabetes. 5. History of hypertension. 6. History of vascular disease. PLAN: 1. The patient is seen emergently. Her chart is reviewed after the trachea is established. 2. Trach is cleaned and replaced with the button. The patient became conversational and appropriate efforts. Her O2 sat was as low as 96% without the trach and as high as 98% with the trach in. 3. Continue medical management per primary service. Surgery will be available as needed. No further planned interventions. Kelvin Greenwood DO DR: IMRIAM/winnie JOB# [id number] CC: Vladimir Almeida NP MTDD
--- NOTE | 2019-02-04 15:17 | NUR ---
DISCHARGE CALL PATIENT DID NOT HAVE A WRITTEN SCRIPT FOR AUGMENTIN 875-125 1 TAB PO BID X 5DAYS AND IT WAS NOT CALLED INTO [facility]. ADAMS CALLED THE PRESCRIPTION INTO [facility] TODAY AND NOTIFIED BOTH PATIENT AND HOME HEALTH NURSE CHAS PIERCE RN. PATIENT WAS CONCERNED BECAUSE SHE DOES NOT HAVE ANY STRIPS OR LANCETS FOR HER GLUCOMETER. THEY DO NOT MAKE THE STRIPS ANY LONGER FOR HER GLUCOMETER. ADAMS PHONED MARGY FELICIANO LVN AT DR. BENTLEY'S OFFICE ABOUT PATIENT NEEDING A PRESCRIPTION FOR GLUCOMETER, STRIPS, AND LANCETS AND IT WOULD NEED TO BE CALLED INTO [facility] BECAUSE [facility] DOES NOT CARRY SUPPLIES. MARGY STATED SHE WOULD GET THE ORDER FORM DR. BENTLEY AND CALL IT INTO [facility] IN [place]. OTHER THAN THE DISCHARGE MEDICATION PROBLEMS PATIENT STATED HER OVERALL EXPERIENCE WAS "REALLY GOOD." Signed: 02/04/19 at 1523 by Yael Crews RN-[facility] & CHEYENNE FLAHERTY
== END 2019-02-02 16:20 | disposition home health service (06) | DRG 91 ==
LOC: ER 10:30 → EDBD 10:30 → MS 13:11 → EDPENDDISDT 02-02 14:19 → EDPENDDISTM 02-02 14:19
PROVIDERS: ADMIT Internal Medicine; ATTEND Internal Medicine
PROC: 0B21XFZ Change Tracheostomy Device in Trachea, External Approach (ICD-10-PCS; principal; 2019-02-02)
DX: G92 Toxic encephalopathy (principal); J18.9 Pneumonia, unspecified organism; E43 Unspecified severe protein-calorie malnutrition; J18.1 Lobar pneumonia, unspecified organism; J96.11 Chronic respiratory failure with hypoxia; J44.0 Chronic obstructive pulmonary disease with (acute) lower respiratory infection; T85.628A Displacement of other specified internal prosthetic devices, implants and grafts, initial encounter; E11.65 Type 2 diabetes mellitus with hyperglycemia; E11.51 Type 2 diabetes mellitus with diabetic peripheral angiopathy without gangrene; E78.5 Hyperlipidemia, unspecified; I25.10 Atherosclerotic heart disease of native coronary artery without angina pectoris; F41.1 Generalized anxiety disorder; F02.80 Dementia in other diseases classified elsewhere, unspecified severity, without behavioral disturbance, psychotic disturbance, mood disturbance, and anxiety; K21.9 Gastro-esophageal reflux disease without esophagitis; C32.9 Malignant neoplasm of larynx, unspecified; F32.9 Major depressive disorder, single episode, unspecified; F41.9 Anxiety disorder, unspecified; G89.29 Other chronic pain; M19.90 Unspecified osteoarthritis, unspecified site; I11.0 Hypertensive heart disease with heart failure; Z88.8 Allergy status to other drugs, medicaments and biological substances; Z92.21 Personal history of antineoplastic chemotherapy; Z79.899 Other long term (current) drug therapy; Z82.3 Family history of stroke; Z81.8 Family history of other mental and behavioral disorders; Z83.6 Family history of other diseases of the respiratory system; Z68.29 Body mass index [BMI] 29.0-29.9, adult; Z82.49 Family history of ischemic heart disease and other diseases of the circulatory system; Z95.5 Presence of coronary angioplasty implant and graft; Z90.710 Acquired absence of both cervix and uterus; Z86.010 Personal history of colon polyps; Z85.89 Personal history of malignant neoplasm of other organs and systems; Z85.21 Personal history of malignant neoplasm of larynx; Z88.5 Allergy status to narcotic agent; Y83.8 Other surgical procedures as the cause of abnormal reaction of the patient, or of later complication, without mention of misadventure at the time of the procedure; Y82.8 Other medical devices associated with adverse incidents; Y92.89 Other specified places as the place of occurrence of the external cause; C76.0 Malignant neoplasm of head, face and neck; S71.001A Unspecified open wound, right hip, initial encounter; X58.XXXA Exposure to other specified factors, initial encounter; Y93.89 Activity, other specified; Y99.8 Other external cause status
CPT/HCPCS: 36415; 71045; 74176; 80053; 81000; 82150; 82550; 82948; 83690; 83880; 84484; 85025; 85027; 85379; 85610; 85730; 86677; 87040; 87070; 87077; 87186; 93005; 94640; 96365; 96375; 99285; C9113; G0378; J0456; J1170; J1650; J1815; J2060; J2270; J2405; J2543; J2920; J3370; J7030; J7050; J7620; J7627; J8499

== ENCOUNTER 2019-02-15 18:55 | Emergency (ER) | payer MEDICARE, MEDICAID ==
[~2019-02-15] VITALS: Ht 154.9 cm; Wt 63.0 kg
[~2019-02-15 18:55] MED LIST changes: +AMOX1TAB63 PO
[2019-02-15 19:30] VITALS: BP 164/106
--- NOTE | 2019-02-15 19:30 | NUR ---
ARRIVAL PATIENT PRESENTS WITH FAMILY WHOM REPORT GENERALIZED BODY ACHES, WEAKNESS, ABDOMINAL PAIN, N/V, FEVER AND CONFUSION. FAMILY REPORTS THAT SHE WAS HOSPITALIZED LAST WEEK FOR PNEUMONIA. PATIENT'S HOME HEALTH NURSE EXAMINED HER TODAY AND TOLD FAMILY TO BRING HER TO THE ER. HX LARYNGEAL CANCER, CHEMO STOPPED 3 WEEKS AGO BECAUSE "SHE COULDN'T TOLERATE IT". FAMILY REPORTS THEY GAVE HER HYDROCODONE LAST AT 1830. PATIENT HAS TRACH AND PEG TUBE. DECUBITUS NOTED TO RIGHT HIP. FAMILY REPORTS THAT SHE HAS AN APPOINTMENT SCHEDULED WITH WOUND CARE NEXT WEEK. PATIENT IS CONFUSED AND ANXIOUS. PLACED ON MONITOR. BP HIGH AND TEMP 102.4. MD JOSEPHINE NOTIFIED.
[2019-02-15] MEDS ORDERED: ATIVAN IV STA (19:57)
[2019-02-15] MEDS ORDERED: ZOFRAN IV STA (19:57)
[2019-02-15] MEDS ORDERED: TYLENOL PO STA (19:57)
[2019-02-15] MEDS ORDERED: LACTATED RINGERS 1,000 ML IV STA ×2 (19:57→22:46)
[2019-02-15 20:00] VITALS: BP 166/67
[2019-02-15] MEDS ORDERED: ATIVAN ONE (20:03)
[2019-02-15] MEDS ORDERED: LACTATED RINGERS 1,000 ML ONE (20:03)
[2019-02-15] MEDS ORDERED: ZOFRAN ONE (20:03)
[2019-02-15] MEDS ORDERED: TYLENOL PO ONE (20:04)
--- NOTE | 2019-02-15 20:06 | ER.PDOC ---
General Chief Complaint: Requesting Medical Care Stated Complaint: ABD PAIN Time seen by MD: 20:02 Source: family Exam Limitations: clinical condition History of Present Illness Initial Comments Abdominal pain, fever, cough, generalized bodyaches for past few days, patient has Laryngeal cancer and her chemotherapy stopped because she could not tolerate it. Severity/Quality: moderate, sharpness Radiation: no radiation Associated Symptoms: nausea/vomiting Exacerbated by: nothing Relieved By: nothing Allergies: Coded Allergies: butorphanol (Verified Allergy, Severe, 01/22/17) pentazocine (Verified Allergy, Severe, 01/22/17) codeine (Verified Adverse Reaction, Intermediate, GI UPSET, 03/15/17) Home Meds Active Scripts Amoxicillin/Potassium Clav (AUGMENTIN 875-125 TABLET) 1 Each Tablet, 1 EACH PO BID for 5 Days Prov:MANAN BENTLEY MD 02/02/19 Reported Medications Isosorbide Mononitrate (ISOSORBIDE MONONITRATE ER) 30 Mg Tab.er.24h, 30 MG PO DAILY 01/22/17 Ipratropium/Albuterol Sulfate (IPRAT-ALBUT 0.5-3(2.5) MG/3 ML) 3 Ml Ampul.neb, 3 ML IH 10/19/14 Fluticasone/Vilanterol (Breo Ellipta 100-25 Mcg INH) 1 Each Aer.pow.ba, 1 EACH IH PRN for SHORTNESS OF BREATH 10/19/14 Gabapentin (NEURONTIN) 300 Mg Capsule, 400 MG PO QID, #90 CAP 3 Refills 05/06/14 Duloxetine Hcl (CYMBALTA) 60 Mg Capsule.dr, 60 MG PO DAILY 05/04/14 Ramipril 2.5MG (ALTACE 2.5MG) 2.5 Mg Capsule, 2.5 MG PO DAILY, CAPSULE 05/04/14 Carbidopa/Levodopa (CARBIDOPA-LEVO ER 25-100 TAB) 1 Each Tablet.er, 1 EACH PO QID 05/04/14 Budesonide (BUDESONIDE) 0.5 Mg/2 Ml Ampul.neb, 0.5 MG IH BID 05/04/14 Vital Signs First Vital Signs Date Time Temp Pulse Resp B/P (MAP) Pulse Ox O2 Delivery O2 Flow Rate FiO2 02/02/19 09:39 60 02/15/19 19:30 102.4 20 97 Room Air 9/14/19 19:30 164/106 (125) Last Vital Signs Date Time Temp Pulse Resp B/P (MAP) Pulse Ox O2 Delivery O2 Flow Rate FiO2 02/15/19 19:30 102.4 99 20 164/106 (125) 97 Room Air Past Medical History Medical History: cancer (Larynx) Surgical History: cardiac cath, appendectomy, cholecystectomy, hysterectomy, stent Social History Drug Use: none Constitutional: fever EENTM: see HPI Respiratory: see HPI Cardiovascular: no symptoms reported Gastrointestinal: see HPI All Other Systems: Reviewed and Negative Physical Exam General Appearance: No Apparent Distress, WD/WN, Anxious, Other (agitated and restless) Neck: Non-Tender, Full Range of Motion, Supple, Normal Inspection, Other (Trach) Respiratory: chest non-tender, lungs clear, normal breath sounds, no respiratory distress Cardiovascular: Normal Peripheral Pulses, Regular Rate, Rhythm, No Edema, No Gallop, No JVD, No Murmur, Tachycardia Gastrointestinal: Normal Bowel Sounds, No Organomegaly, No Pulsatile Mass, Tenderness Back: Normal Inspection, No CVA Tenderness, No Vertebral Tenderness Extremities: Normal Range of Motion 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 (02/15/19 19:57) Urinalysis (02/15/19 19:57) Ekg-Routine (02/15/19 19:57) Lactic Acid(Rt) (02/15/19 19:57) Blood Culture (02/15/19 19:57) Xr Chest 1v (02/15/19 19:57) Influenza A&B (02/15/19 19:57) Ringer's Solution,Lactated (Lactated Rin (02/15/19 19:57) Lorazepam (Ativan) (02/15/19 19:57) Ondansetron Hcl (Zofran) (02/15/19 19:57) Ct Abd/Pelvis Wo Iv Contrast (02/15/19 19:57) Acetaminophen (Tylenol) (02/15/19 19:57) Ringer's Solution,Lactated (Lactated Rin (02/15/19 20:03) Ondansetron Hcl (Zofran) (02/15/19 20:03) Lorazepam (Ativan) (02/15/19 20:03) Acetaminophen (Tylenol) (02/15/19 20:04) Ibuprofen (Motrin) (02/15/19 20:15) Ibuprofen (Motrin) (02/15/19 20:23) +Ref Lac Acid Yn (Sepsis Prot) (02/15/19 20:24) Ibuprofen (Motrin) (02/15/19 20:41) Piperacillin Sodium/Tazobactam (Zosyn 3. (02/15/19 21:52) Vancomycin Hcl (Vancomycin Hcl) (02/15/19 21:52) Lactic Acid(Rt) (02/15/19 21:54) Vital Signs Date Time Temp Pulse Resp B/P (MAP) Pulse Ox O2 Delivery O2 Flow Rate FiO2 02/15/19 19:30 102.4 99 20 164/106 (125) 97 Room Air 02/15/19 19:30 102.4 99 20 02/15/19 19:30 102.4 99 20 97 Room Air 02/02/19 14:18 67 02/02/19 09:39 60 Administered Medications Medications (Trade) Dose Ordered Sig/Romulo Route PRN Reason Start Time Stop Time Status Last Admin Dose Admin Ibuprofen (Motrin) 600 mg STAT STAT PO 02/15/19 20:23 02/15/19 20:24 DC 02/15/19 20:51 600 MG Lorazepam (Ativan) 1 mg STAT STAT IV 02/15/19 19:57 02/15/19 20:02 DC 02/15/19 21:21 1 MG Ondansetron HCl (Zofran) 4 mg STAT STAT IV 02/15/19 19:57 02/15/19 20:02 DC 02/15/19 21:21 4 MG Laboratory Tests Test 02/15/19 20:14 02/15/19 21:22 White Blood Count 10.7 10^3/uL (4.5-11.0) Red Blood Count 3.10 10^6/uL (4.00-5.20) L Hemoglobin 8.8 g/dL (12.0-15.0) L Hematocrit 27.3 % (36.0-46.0) L Mean Corpuscular Volume 88.1 fL (78-100) Mean Corpuscular Hemoglobin 28.4 pg (26-34) Mean Corpuscular Hemoglobin Concent 32.2 g/dL (33-37) L Red Cell Distribution Width 16.5 % (11.5-14.5) H Platelet Count 252 10^3/uL (150-400) Mean Platelet Volume 9.9 fL (7.8-11.0) Neutrophils (%) (Auto) 74.8 % (41.0-85.0) Lymphocytes (%) (Auto) 17.0 % (24.0-44.0) L Monocytes (%) (Auto) 7.5 % (5.0-12.0) Neutrophils # (Auto) 8.0 10^3/uL (1.8-7.7) H Lymphocytes # (Auto) 1.8 10^3/uL (1.0-4.8) Monocytes # (Auto) 0.8 10^3/uL (0.3-0.8) Absolute Immature Granulocyte (auto 0.03 10^3 u/L (0-2) Immature Granulocytes % 0.30 % (0.00-0.50) Eosinophils % 0.0 % (0.0-5.0) Basophils % 0.4 % (0.0-0.2) H Basophils # 0.0 10^3/uL (0.0-0.1) Eosinophil Count 0.0 10^3/uL (0.0-0.2) Prothrombin Time 10.9 SEC (9.4-11.5) Prothrombin Time INR (Non-Therap) 1.1 Activated Partial Thromboplast Time 31.2 SEC (24.67-30.72) Blood Gas Sample Site RAC Red Test N/A Lactic Acid (Blood Gas) 2.4 mmol/1 (0.50-2.0) H Blood Gas Temperature 37 Sodium Level 126 mmol/L (132-145) #L Potassium Level 4.6 mmol/L (3.6-5.2) Chloride Level 92.0 mmol/L (96-109) L Carbon Dioxide Level 23.7 mmol/L (20.0-32) Anion Gap 14.9 Blood Urea Nitrogen 16 mg/dL (7-18) Creatinine 0.86 mg/dL (0.59-1.40) Estimated GFR () 77.8 (>/=60) BUN/Creatinine Ratio 18.0 Glucose Level 366 mg/dL (70-110) H Calcium Level 9.2 mg/dL (8.4-10.5) Total Bilirubin 0.7 mg/dL (0.2-1.0) Aspartate Amino Transferase (AST) 24 U/L (0-35) Alanine Aminotransferase (ALT) 11 U/L (12-78) L Alkaline Phosphatase 99 U/L (50-136) Total Protein 7.8 g/dL (6.4-8.2) Albumin 2.6 g/dL (3.4-5.0) L Globulin 5.2 Lipase 34 U/L (114-286) L Influenza Type A Antigen NEGATIVE (NEG) Influenza B Immunofluorescence NEGATIVE (NEG) Progress Progress CT abdomen/pelvis: No acute intra-abdominal abnormality is identified. Apparent punctate left nephrolithiasis. No definite ureteral calculi. No hydronephrosis. No evidence for small bowel obstruction. Eflp-uw-aousxhmd fecal burden without gross colonic abnormality. Nonvisualization of the appendix. 2. Hepatic cirrhosis. No significant splenomegaly. No ascites. 3. Improving aeration of the right lung base with minimal residual opacity at the right costophrenic angle. CXR: Nothing acute Spoke with Dr. Ybarra and he told me to transfer patient because of her laryngeal cancer. Course Sepsis Screening Results: Posi: NEGATIVE Sepsis Qualifier/Stage: NO DEFINITE RISK Duration or Total Time Spent w: 17 min Vitals & review Data Vital Sign - Last 24 Hours 02/02/19 02/02/19 02/15/19 02/15/19 09:39 14:18 19:30 19:30 Temp 102.4 102.4 Pulse 60 67 99 99 Resp 20 20 Pulse Ox 97 O2 Delivery Room Air 02/15/19 19:30 Temp 102.4 Pulse 99 Resp 20 B/P (MAP) 164/106 (125) Pulse Ox 97 O2 Delivery Room Air Laboratory Tests Test 02/15/19 20:14 02/15/19 21:22 White Blood Count 10.7 10^3/uL Red Blood Count 3.10 10^6/uL Hemoglobin 8.8 g/dL Hematocrit 27.3 % Mean Corpuscular Volume 88.1 fL Mean Corpuscular Hemoglobin 28.4 pg Mean Corpuscular Hemoglobin Concent 32.2 g/dL Red Cell Distribution Width 16.5 % Platelet Count 252 10^3/uL Mean Platelet Volume 9.9 fL Neutrophils (%) (Auto) 74.8 % Lymphocytes (%) (Auto) 17.0 % Monocytes (%) (Auto) 7.5 % Neutrophils # (Auto) 8.0 10^3/uL Lymphocytes # (Auto) 1.8 10^3/uL Monocytes # (Auto) 0.8 10^3/uL Absolute Immature Granulocyte (auto 0.03 10^3 u/L Immature Granulocytes % 0.30 % Eosinophils % 0.0 % Basophils % 0.4 % Basophils # 0.0 10^3/uL Eosinophil Count 0.0 10^3/uL Prothrombin Time 10.9 SEC Prothrombin Time INR (Non-Therap) 1.1 Activated Partial Thromboplast Time 31.2 SEC Blood Gas Sample Site RAC Red Test N/A Lactic Acid (Blood Gas) 2.4 mmol/1 Blood Gas Temperature 37 Sodium Level 126 mmol/L Potassium Level 4.6 mmol/L Chloride Level 92.0 mmol/L Carbon Dioxide Level 23.7 mmol/L Anion Gap 14.9 Blood Urea Nitrogen 16 mg/dL Creatinine 0.86 mg/dL Estimated GFR () 77.8 BUN/Creatinine Ratio 18.0 Glucose Level 366 mg/dL Calcium Level 9.2 mg/dL Total Bilirubin 0.7 mg/dL Aspartate Amino Transf (AST/SGOT) 24 U/L Alanine Aminotransferase (ALT/SGPT) 11 U/L Alkaline Phosphatase 99 U/L Total Protein 7.8 g/dL Albumin 2.6 g/dL Globulin 5.2 Lipase 34 U/L Influenza Type A Antigen NEGATIVE Influenza B Immunofluorescence NEGATIVE Current Medications Medications (Trade) Dose Ordered Sig/Romulo PRN Reason Start Time Stop Time Status Last Admin Piperacillin Sod/ Tazobactam Sod 3.375 gm/Sodium Chloride 100 ml @ 100 mls/hr STAT STAT 02/15/19 21:52 02/15/19 22:51 Vancomycin HCl 1 gm/Sodium Chloride 250 ml @ 175 mls/hr STAT STAT 02/15/19 21:52 02/15/19 23:17 Sepsis Infection Criteria Pres: Documented Infection LEVEL 1 SEPSIS INFECTION CRITE: ABX Therapy LEVEL 2-SIRS (LIST ALL THAT AP: None/Not assessed Cardiovascular Evidence: Not Assessed or None Hematologic Evidence: None/Not assessed Hepatic Evidence: None/Not assessed Metabolic Evidence: None/Not assessed Neurological Evidence: None/Not assessed Respiratory Evidence: None/Not assessed Renal Evidence: None/Not assessed Departure Time of Disposition: 22:15 Disposition: 02 XFER SHT-TRM HOSP Impression: Primary Impression: Sepsis Additional Impressions: Wound cellulitis Decubitus ulcer Laryngeal cancer Condition: Stable Referrals: ADONIS YIN [employer]ORER (PCP) PRIMARY CARE PROVIDER Comments Transfer to [facility] ED for Dr. Baca Duration or Time Spent with Pa: 2 hours Problem Qualifiers Primary Impression: Sepsis Sepsis type: sepsis due to unspecified organism Sepsis acute organ dysfunction status: unspecified Qualified Codes: A41.9 - Sepsis, unspecified organism Additional Impressions: Decubitus ulcer Pressure injury location: hip Pressure injury stage: unspecified pressure injury stage Laterality: right Qualified Codes: L89.219 - Pressure ulcer of right hip, unspecified stage GAYE BURTON MD Feb 15, 2019 20:05
--- NOTE | 2019-02-15 20:10 | NUR ---
PORT PATIENT AND FAMILY REQUESTING FOR PATIENT'S PORT TO BE ACCESSED INSTEAD OF INSERTING A PERIPHERAL IV. MD JOSEPHINE NOTIFIED AND STATES THAT WE MAY ACCESS PORT.
[2019-02-15] MEDS ORDERED: MOTRIN ONE ×2 (20:15→20:41)
--- NOTE | 2019-02-15 20:16 | NUR ---
RADIOLOGY PATIENT IS BEING TRANSPORTED TO RADIOLOGY. NO SIGNS OF DISTRESS NOTED.
[2019-02-15 20:19] LABS: BASOPHIL % 0.4 % (0.0-0.2); HEMOGLOBIN 8.8 g/dL (12.0-15.0); LYMPHOCYTES # 1.8 10^3/uL (1.0-4.8); MEAN CELL HGB 28.4 pg (26-34); MEAN CELL HGB CONCENTRATION 32.2 g/dL (33-37); MEAN CORP VOLUME 88.1 fL (78-100); MEAN PLATELET VOLUME 9.9 fL (7.8-11.0); MONOCYTES # 0.8 10^3/uL (0.3-0.8); MONOCYTES % 7.5 % (5.0-12.0); NEUTROPHILS % 74.8 % (41.0-85.0); RED CELL DISTRIBUTION WIDTH 16.5 % (11.5-14.5); WHITE BLOOD CELL 10.7 10^3/uL (4.5-11.0)
[2019-02-15] MEDS ORDERED: MOTRIN PO STA (20:23)
[2019-02-15 20:37] LABS: CALCIUM 9.2 mg/dL (8.4-10.5); CARBON DIOXIDE 23.7 mmol/L (20.0-32)
--- NOTE | 2019-02-15 20:44 | NUR ---
RADIOLOGY PATIENT RETURNED FROM RADIOLOGY. NO SIGNS OF DISTRESS NOTED.
--- NOTE | 2019-02-15 20:56 | DIREP ---
PROCEDURE:CHEST 1 VIEW COMPARISON:[facility], CR, XRAY CHEST SINGLE VW, 01/30/2019, 11:21 AM. INDICATIONS:Cough FINDINGS: LUNGS/PLEURA:No alveolar infiltrate is seen. Interstitial prominence is again noted throughout both lungs. VASCULATURE:Normal. Unremarkable pulmonary vasculature. CARDIAC:Normal. No cardiac silhouette abnormality or cardiomegaly. MEDIASTINUM:Normal. No visible mass or adenopathy. BONES:Normal. No fracture or visible bony lesion. OTHER:The tracheostomy tube and internal jugular MediPort remaining good position. CONCLUSION: 1. No acute cardiopulmonary disease is demonstrated. No significant change is noted since 01/30/2019. Dictated by: Sravan Duffy M.D. on 02/15/2019 at 08:55 PM
--- NOTE | 2019-02-15 20:59 | PCM.EKG ---
[facility] Test Date: 2019-02-15 Test Time: 20:59:24 Pat Name: DARYN CHUA Department: Room: Gender: F Configuration Analyst: ALESSIO : 1945 Requested By: GAYE BURTON Order Number: [id number] Reading MD: Gaye BURTON Measurements Intervals [place] Rate: 107 P: MD: 224 QRS: -17 QRSD: 86 T: 158 QT: 342 QTc: 456 Interpretive Statements Sinus tachycardia with 1st degree AV block Septal infarct, age undetermined T wave abnormality, consider lateral ischemia Abnormal ECG Compared to ECG 01/30/2019 10:51:28 First degree AV block now present Myocardial infarct finding now present Possible ischemia now present Sinus rhythm no longer present Prolonged QT interval no longer present T-wave abnormality still present Electronically Signed On 02-16-2019 6:28:25 CDT by Gaye BURTON Please click the below link to view image of tracing.
[2019-02-15 21:00] VITALS: BP 146/68
--- NOTE | 2019-02-15 21:32 | DIREP ---
PROCEDURE:CT ABDOMEN/PELVIS W/O CONTRAST COMPARISON:[facility], CT, CT ABD/PELVIS W/O, 01/30/2019, 11:02 AM. INDICATIONS:Pain TECHNIQUE:Axial images were created through the abdomen and pelvis without intravenous contrast material. No oral contrast was administered. Sagittal and coronal reconstructions were performed from source images. FINDINGS: LUNG BASES:Diffuse interstitial thickening may reflect senescent changes or underlying chronic lung disease. Improving aeration of the right lung base when compared to the previous study with minimal residual opacity at the right costophrenic angle. LIVER:Hepatic cirrhosis. No suspicious focal hepatic lesion is identified; however, evaluation is limited by the lack of intravenous contrast. BILIARY:Previous cholecystectomy. PANCREAS:No suspicious pancreatic abnormality. SPLEEN:The spleen is not significantly enlarged. No focal splenic lesion identified. ADRENALS:No suspicious adrenal abnormality. URINARY TRACT:Potential punctate left nephrolithiasis. No definite ureteral calculi. No hydronephrosis. Nonspecific bilateral perinephric fat stranding. AORTA/VASCULAR:Diffuse atherosclerotic calcifications of the aorta with fairly high-grade stenosis of the proximal infrarenal abdominal aorta. There is additional high-grade stenosis of the distal infrarenal abdominal aorta just proximal to the aortic bifurcation. Diffuse calcifications of the iliac arteries with apparent stents. RETROPERITONEUM:No suspicious retroperitoneal lymphadenopathy. BOWEL/MESENTERY:Percutaneous gastrostomy tube. No evidence for small bowel obstruction. Liev-ar-cdbvmnpq fecal burden without gross colonic abnormality. Nonvisualization of the appendix. No free air. ABDOMINAL WALL:No significant hernia. PELVIC ORGANS:Urinary bladder is jrty-yb-rxszlujsuw distended, but appears otherwise grossly unremarkable. The uterus is absent. No free fluid. BONES:Limited by motion. No acute fracture is identified. Degenerative changes of the spine. CONCLUSION: 1. No acute intra-abdominal abnormality is identified. Apparent punctate left nephrolithiasis. No definite ureteral calculi. No hydronephrosis. No evidence for small bowel obstruction. Skof-tz-jcmadmjr fecal burden without gross colonic abnormality. Nonvisualization of the appendix. 2. Hepatic cirrhosis. No significant splenomegaly. No ascites. 3. Improving aeration of the right lung base with minimal residual opacity at the right costophrenic angle. 4. Additional findings as discussed above. Dictated by: Hi Valerio M.D. On 02/15/2019 at 09:24 PM
--- NOTE | 2019-02-15 21:34 | NUR ---
O2 SAT PATIENT'S O2 SAT IS DECREASING TO 88% WHEN SHE FALLS ASLEEP. MD JOSEPHINE NOTIFIED. PATIENT PLACED ON 2L O2 VIA NASAL CANNULA. O2 SAT 94% ON 2L. CONTINUE TO MONITOR CLOSELY.
--- NOTE | 2019-02-15 21:41 | NUR ---
CONSULT MD JOSEPHINE ON PHONE WITH DR TURNER REGARDING PATIENT AT THIS TIME.
[2019-02-15] MEDS ORDERED: ZOSYN 3.375 GRAM VIAL 3.375 GM in NS 100ML 100 ML IV STA (21:52)
[2019-02-15] MEDS ORDERED: VANCOMYCIN HCL 1 GM in NS 250ML 250 ML IV STA (21:52)
[2019-02-15 22:00] VITALS: BP 141/62
[2019-02-15 22:27] VITALS: BP 153/63
[2019-02-15] MEDS ORDERED: NS 100ML 100 ML IV ONE (22:31)
[2019-02-15] MEDS ORDERED: ZOSYN 3.375 GRAM VIAL IV ONE (22:31)
--- NOTE | 2019-02-15 22:45 | NUR ---
[facility] SPOKE WITH [facility], STATES THEY WILL TAKE THE TRANSFER FOR US
[2019-02-15 23:15] VITALS: BP 147/61
[2019-02-15] MEDS ORDERED: NS 250ML 250 ML IV ONE (23:23)
[2019-02-15] MEDS ORDERED: VANCOMYCIN HCL 1 GM ONE (23:23)
--- NOTE | 2019-02-15 23:40 | NUR ---
TRANSFER [facility] HERE FOR TRANSFER TO [facility] ED. 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 ALL QUESTIONS ANSWERED. PATIENT STABLE AT TIME OF HANDOFF AND TRANSFER OUT OF ER.
== END 2019-02-15 23:40 | disposition short-term general hospital (02) ==
LOC: ER 18:55
DX: A41.9 Sepsis, unspecified organism (principal); L03.90 Cellulitis, unspecified; L89.219 Pressure ulcer of right hip, unspecified stage; C32.9 Malignant neoplasm of larynx, unspecified; Z95.818 Presence of other cardiac implants and grafts; Z90.49 Acquired absence of other specified parts of digestive tract; Z90.710 Acquired absence of both cervix and uterus; Z95.5 Presence of coronary angioplasty implant and graft; Z79.2 Long term (current) use of antibiotics; Z79.899 Other long term (current) drug therapy; Z88.5 Allergy status to narcotic agent; Z88.8 Allergy status to other drugs, medicaments and biological substances
CPT/HCPCS: 36415; 71045; 74176; 80053; 83605 ×2; 83690; 85025; 85610; 85730; 87040 ×2; 87804 ×2; 93005; 96365; 96375; 99285; J2060; J2405; J2543 ×2; J3370 ×2; J7050 ×4; J7120